=== PATIENT | male | born 1945 | race Caucasian/White ===

== ENCOUNTER 2024-07-12 22:12 | Inpatient (IN) | payer MEDICARE, OTHER, SELFPAY ==
[2024-07-12] VITALS (8 sets, daily range): BP systolic 101–129; BP diastolic 44–59; BMI 36.1; BMI 33.3
[2024-07-12 17:51] LABS: % Basophils 0.6 % (0-2); % Eosinophils 2.5 % (0-6); % Immature Granulocytes 0.9 % (0-0.5); % Lymphocytes 17.9 % (20.5-51.1); % Monocytes 10.5 % (1.7-9.3); % Neutrophils 67.6 % (42.2-75.2); Absolute Basophils 0.1 10^3/uL (0-0.2); Absolute Eosinophils 0.3 10^3/uL (0-0.7); Absolute Immature Granulocytes 0.1 10^3/uL (0-0.05); Absolute Lymphocytes 2.3 10^3/uL (1.2-3.4); Absolute Monocytes 1.4 10^3/uL (0.1-0.6); Absolute Neutrophils 8.8 10^3/uL (1.4-6.5); Hematocrit 30.2 % (39.0-52.0); Hemoglobin 9.6 g/dL (13.0-18.0); Mean Corp Hgb Conc. 31.8 g/dL (33.0-37.0); Mean Corpuscular Hgb 29.3 pg (27.0-31.0); Mean Corpuscular Volume 92.1 fL (80.0-94.0); Mean Platelet Volume 9.7 fL (7.4-10.4); Nucleated Red Blood Cells % 0 % (-); Platelet Count 318 10^3/uL (130-400); Red Blood Cell Count 3.28 10^6/uL (4.70-6.10); Red Cell Dist. Width 13.9 % (11.5-14.5); Urine Albumin 1+ (Neg - Trace); Urine Bilirubin Negative (Negative); Urine Character Slightly Cloudy (Clear); Urine Color Yellow; Urine Glucose Negative (Negative); Urine Ketone Negative (Negative); Urine Leukocyte 2+ (Negative); Urine Nitrite Negative (Negative); Urine Occult Blood 2+ (Negative); Urine Urobilinogen Negative (Neg - 1+)
[2024-07-12 17:57] LABS: Urine Bacteria Many (Negative); Urine Squamous Cell 0-2 /LPF (Few); Urine White Cell >100 /HPF (0-5)
[2024-07-12 18:13] LABS: ALT (SGPT) 11 U/L (0-50); AST (SGOT) 15 U/L (17-59); Albumin 3.3 g/dl (3.5-5.0); Alkaline Phosphatase 104 U/L (38-126); Blood Urea Nitrogen 50 mg/dl (9-20); Calcium 8.5 mg/dl (8.4-10.2); Carbon Dioxide 26 mmol/L (22-30); Chloride 101 mmol/L (98-107); Glucose 272 mg/dl (70-99); Potassium 5.4 mmol/L (3.5-5.1); Sodium 137 mmol/L (135-145); Total Bilirubin 0.4 mg/dl (0.2-1.3); Total Protein 7.3 g/dl (6.3-8.2); eGFR 37.82
--- NOTE | 2024-07-12 20:32 | ED.GENMED ---
History of Present Illness
<AAMRI Bucio - Last Filed: 07/12/24 21:38>
General
Chief Complaint: Change in Mental Status
Source: family (Son)
Exam Limitations: altered mental status and dementia
Time Seen by Provider: 07/12/24 18:46
History of Present Illness
History of Present Illness:
This is a 78 y/o male with PMH of Dementia, T2DM, BPH, and metabolic encephalopathy who presents to the ED with CC of AMS. Patient's son Pasha has provided the history due to the patient being non-verbal at this time. Per son, he has been sleeping
since noon which is unlike him. His son describes him as looking 'heavily sedated.' Pt was in [facility] last Sunday (07/05) for AMS and was discharged after 5 hours. Pt presented similarity in the past with a UTI.
Review of Systems
<AMARI Bucio - Last Filed: 07/12/24 21:38>
Review of Systems
Unable to obtain full review of systems at this time due to: dementia
Other source history: family
All Other Systems: ROS reviewed and negative except as documented in HPI and ROS
Phy Exam
<AMARI Bucio - Last Filed: 07/12/24 21:38>
General Physical Exam
General Presentation: no apparent distress
General age: appears stated age
General Skin: warm and dry
General Habitus: normal and elderly
General Mental: confused
Course
<AMARI Bucio - Last Filed: 07/12/24 21:38>
Orders/Labs/Results
Orders:
Orders
07/12/24 17:32
Straight Cath As Directed
Frequency: One time now
07/12/24 17:33
Complete Blood Count/With Diff Urgent
Comprehensive Metabolic Panel Urgent
Urinalysis Reflex To Culture Urgent
Date Specimen was Collected: 07/12/24
Time Specimen was Collected: 17:32
Urine Microscopic Reflex Cult Urgent
Urine Culture Urgent
QIAN Source: U
Specimen Description:
Date Specimen was Collected: 07/12/24
Time Specimen was Collected: 17:32
07/12/24 20:40
0.9% Sodium Chloride 1000 ml [Nss] 1,000 ml IV BOLUS
07/12/24 20:50
Piperacillin/Tazo 2.25 Gram [Zosyn] 2.25 grams in 50 ml IV NOW
07/12/24 20:54
CT Head W/o Iv Contrast Urgent
Comment:
Reason For Exam: stupor
Abnormal Lab Results
07/12/24
17:33
WBC 13.0 H 10^3/uL
(4.8-10.8)
RBC 3.28 L 10^6/uL
(4.70-6.10)
Hgb 9.6 L g/dL
(13.0-18.0)
Hct 30.2 L %
(39.0-52.0)
MCHC 31.8 L g/dL
(33.0-37.0)
Abs Immat Gran (auto) 0.1 H 10^3/uL
(0-0.05)
Absolute Neuts (auto) 8.8 H 10^3/uL
(1.4-6.5)
Absolute Monos (auto) 1.4 H 10^3/uL
(0.1-0.6)
Immature Gran % 0.9 H %
(0-0.5)
Lymphocytes % 17.9 L %
(20.5-51.1)
Monocytes % 10.5 H %
(1.7-9.3)
Potassium 5.4 H mmol/L
(3.5-5.1)
BUN 50 H mg/dl
(9-20)
Creatinine 1.8 H mg/dL
(0.7-1.3)
Glucose 272 H mg/dl
(70-99)
AST 15 L U/L
(17-59)
Albumin 3.3 L g/dl
(3.5-5.0)
Ur Occult Blood Reflex 2+ A
(Negative)
Leukocyte Esterase Rfl 2+ A
(Negative)
Urine RBC 3-6 A /HPF
(0-2)
Urine WBC (Reflex) >100 A /HPF
(0-5)
Urine Bacteria (Reflex) Many A
(Negative)
Urine Albumin (Reflex) 1+ A
(Neg - Trace)
07/12/24 17:33
07/12/24 17:33
Vital Signs
Initial and Last Documented VS:
Initial Vital Signs
Temp Pulse Resp BP Pulse Ox
98.5 F 74 20 114/57 93
07/12/24 17:21 07/12/24 17:21 07/12/24 17:21 07/12/24 17:21 07/12/24 17:21
Last Documented Vital Signs
Temp Pulse Resp BP Pulse Ox
98.5 F 69 15 129/59 95
07/12/24 17:21 07/12/24 21:00 07/12/24 17:45 07/12/24 21:00 07/12/24 20:30
Quelt;Tung Dove, DO - Last Filed: 07/12/24 20:56>
Orders/Labs/Results
Orders:
Orders
07/12/24 17:32
Straight Cath As Directed
Frequency: One time now
07/12/24 17:33
Complete Blood Count/With Diff Urgent
Comprehensive Metabolic Panel Urgent
Urinalysis Reflex To Culture Urgent
Date Specimen was Collected: 07/12/24
Time Specimen was Collected: 17:32
Urine Microscopic Reflex Cult Urgent
Urine Culture Urgent
QIAN Source: U
Specimen Description:
Date Specimen was Collected: 07/12/24
Time Specimen was Collected: 17:32
07/12/24 20:40
0.9% Sodium Chloride 1000 ml [Nss] 1,000 ml IV BOLUS
07/12/24 20:50
Piperacillin/Tazo 2.25 Gram [Zosyn] 2.25 grams in 50 ml IV NOW
07/12/24 20:54
CT Head W/o Iv Contrast Urgent
Comment:
Reason For Exam: stupor
Abnormal Lab Results
07/12/24
17:33
WBC 13.0 H 10^3/uL
(4.8-10.8)
RBC 3.28 L 10^6/uL
(4.70-6.10)
Hgb 9.6 L g/dL
(13.0-18.0)
Hct 30.2 L %
(39.0-52.0)
MCHC 31.8 L g/dL
(33.0-37.0)
Abs Immat Gran (auto) 0.1 H 10^3/uL
(0-0.05)
Absolute Neuts (auto) 8.8 H 10^3/uL
(1.4-6.5)
Absolute Monos (auto) 1.4 H 10^3/uL
(0.1-0.6)
Immature Gran % 0.9 H %
(0-0.5)
Lymphocytes % 17.9 L %
(20.5-51.1)
Monocytes % 10.5 H %
(1.7-9.3)
Potassium 5.4 H mmol/L
(3.5-5.1)
BUN 50 H mg/dl
(9-20)
Creatinine 1.8 H mg/dL
(0.7-1.3)
Glucose 272 H mg/dl
(70-99)
AST 15 L U/L
(17-59)
Albumin 3.3 L g/dl
(3.5-5.0)
Ur Occult Blood Reflex 2+ A
(Negative)
Leukocyte Esterase Rfl 2+ A
(Negative)
Urine RBC 3-6 A /HPF
(0-2)
Urine WBC (Reflex) >100 A /HPF
(0-5)
Urine Bacteria (Reflex) Many A
(Negative)
Urine Albumin (Reflex) 1+ A
(Neg - Trace)
07/12/24 17:33
07/12/24 17:33
Vital Signs
Initial and Last Documented VS:
Initial Vital Signs
Temp Pulse Resp BP Pulse Ox
98.5 F 74 20 114/57 93
07/12/24 17:21 07/12/24 17:21 07/12/24 17:21 07/12/24 17:21 07/12/24 17:21
Last Documented Vital Signs
Temp Pulse Resp BP Pulse Ox
98.5 F 69 15 129/59 95
07/12/24 17:21 07/12/24 21:00 07/12/24 17:45 07/12/24 21:00 07/12/24 20:30
<AMARI Bucio - Last Filed: 07/12/24 21:38>
*Critical Care Note
Total Time (30-74mins, 75-104mins- exclusive of procedures): Not Applicable
ED Attending Note
<AMARI Bucio - Last Filed: 07/12/24 21:38>
-
Portions of this chart may have been created with voice recognition software.� Occasional wrong word or��sound alike� substitutions may have occurred due to the inherent limitations of voice recognition software.
<Tung Dove DO - Last Filed: 07/12/24 20:56>
ED Attending Note
Patient seen and examined by attending physician: Yes
I performed the substantive portion of visit, reviewed & personally made and approve the management plan that is documented in note by myself or KHUSHBU.: Yes
ED Attending Note:
Seen with student examined independently 78-year-old male from the facility presents with confusion weakness subacute onset he is on Hip-Femi chronically apparently he gets this issue when he gets a UTI labs are noted creatinine up white count up
urinalysis noted does not appear to have a Degroot will start on antibiotics admit
Discharge Plan
Departure
Patient Disposition: Admit
Date of Disposition: 07/12/24
Time of Disposition: 20:56
Admit to: Med/Surg
Presentation/result/management discussed w/ accepting MD/DO: Hospitalist
Patient with high blood pressure during this ER visit?: No
Condition: Fair
Discharge Problem:
Acute UTI (urinary tract infection)
Prescriptions:
No Action
Glucagon Emergency Kit 1 mg Kit
1 mg IM PRN PRN (Reason: blood sugar <60)
acetaminophen 325 mg Tablet
650 mg PO Q4H PRN (Reason: pain/temp)
bisacodyl 5 mg Suppository
1 mg SD PRN PRN (Reason: no BM for 5 days)
polyethylene glycol 3350 [GlycoLax] 17 gram Powder In Packet
17 g PO DAILY
donepezil 10 mg Tablet
10 mg PO HS
dextrose [Glucose Gel] 40 % Gel
10 g PO Q15M PRN (Reason: blood sugar <60)
ergocalciferol (vitamin D2) 50,000 unit Tablet
50,000 unit PO .SUNDAY HS
levothyroxine 75 mcg Tablet
75 mcg PO DAILY
calcium carbonate 600 mg calcium (1,500 mg) Tablet
600 mg PO DAILY
methenamine hippurate [Hiprex] 1 gram Tablet
1 g PO DAILY
tamsulosin [Flomax] 0.4 mg Capsule
0.4 mg PO HS
Enema 19-7 gram/118 mL Enema
118 ml SD PRN PRN (Reason: no bm >6 days)
aspirin 81 mg Tablet
81 mg PO DAILY
magnesium 200 mg Tablet
400 mg PO DAILY
insulin lispro [Admelog SoloStar U-100 Insulin] 100 unit/mL Insulin Pen
1 sliding scale dose SC DIRECTED
Rx Instructions:
201-250- 2 units
251-300-4 units
301-350- 6 units
351-400- 8 units
401-450- 10 units
<60 or >500 call MD
Anusol Suppository
1 supp SD BID
insulin glargine 100 unit/mL Cartridge
20 unit SC DAILY
pregabalin [Lyrica] 100 mg Capsule
100 mg PO .LUNCH
pregabalin [Lyrica] 150 mg Capsule
150 mg PO BID
duloxetine 60 mg Capsule, Delayed Rel Sprinkle
60 mg PO DAILY
Referrals:
Gerber Daley MD [Family Provider] -
Interventions
Interventions:
*General Assessment Last Done: 07/12/24 17:21
ED- Fall Risk Assessment Last Done: 07/12/24 17:45
ED- Pulmonary Assessment Last Done: 07/12/24 17:45
ED- Cardiac Assessment Last Done: 07/12/24 17:45
Discharge Date and Time
Print Language: BANGLADESHI
[2024-07-12] MEDS: ZOSYN 50 IV (21:09)
[2024-07-12] MEDS: NSS 1000 IV (21:10)
--- NOTE | 2024-07-12 21:12 | EDRN ---
Report received, went in patient is sleeping, hooked back up to monitor and placed call cha at bedside
--- NOTE | 2024-07-12 21:31 | HPS.HSE ---
Family Physician
-
Family Physician: Gerber Daley
Chief Complaint
-
Change of mental status
History of Present Illness
78 y/o man with a PMH of:
Dementia,
T2DM,
BPH
metabolic encephalopathy
comes to the ED with change of mental status. Patient's son Pasha has provided the history to the ED doc due to the patient being non-verbal at this time Son was not in room at the time of admit. Per son, patient has been sleeping since noon which
is unlike him. Pt was in [facility] last Sunday (07/05) for AMS and was discharged after 5 hours. Pt presented similarity in the past with a UTI. Patient was not able to give me any further answers.
Medical History
Past Medical History
Past Medical History: Reports Other
Additional Past Medical History:
Patient does not get his care in our system. He is not able to provide any history to me.
Looking at his meds, his PMH is likely:
Insulin dependent Diabetes
Dementia
Depression
hypothyroidism
BPH
Past Surgical History: Reports Other
Additional Past Surgical History:
Not know. History not available.
Social History
Unable to obtain full social history at this time due to: Dementia
Family History
Family History: Not pertinent
Allergies / Home Medications
Allergies reflects when Allergies were last updated in [facility].
Home Medications with original date entered in [facility]
Allergy/Medication List:
Allergies
Allergy/AdvReac Type Severity Reaction Status Date / Time
morphine Allergy Unknown Verified 07/12/24 17:31
nitrofurantoin Allergy Unknown Verified 07/12/24 17:31
Home Medications
acetaminophen 325 mg tablet 650 mg PO Q4H PRN pain/temp 07/12/24
aspirin 81 mg tablet 81 mg PO DAILY 07/12/24
bisacodyl 5 mg rectal suppository 1 mg AL PRN PRN no BM for 5 days 07/12/24
bismuth weui-[id number]-EsGh-resor rectal suppository 1 supp AL BID 07/12/24
calcium carbonate 600 mg PO DAILY 07/12/24
dextrose 40 % oral gel (Glucose Gel) 10 g PO Q15M PRN blood sugar <60 07/12/24
donepezil 10 mg tablet 10 mg PO HS 07/12/24
duloxetine 60 mg capsule,delayed release sprinkle 60 mg PO DAILY 07/12/24
ergocalciferol (vitamin D2) 50,000 unit tablet 50,000 unit PO .SUNDAY HS 07/12/24
glucagon 1 mg injection kit 1 mg IM PRN PRN blood sugar <60 07/12/24
insulin glargine 100 unit/mL subcutaneous cartridge 20 unit SC DAILY 07/12/24
insulin lispro 100 unit/mL subcutaneous pen ([facility] SoloStar U-100 Insulin lispro) 1 sliding scale dose SC DIRECTED 07/12/24
levothyroxine 75 mcg tablet 75 mcg PO DAILY 07/12/24
magnesium 200 mg tablet 400 mg PO DAILY 07/12/24
methenamine hippurate 1 gram tablet 1 g PO DAILY 07/12/24
polyethylene glycol 3350 17 gram oral powder packet 17 g PO DAILY 07/12/24
pregabalin 100 mg capsule (Lyrica) 100 mg PO .LUNCH 07/12/24
pregabalin 150 mg capsule (Lyrica) 150 mg PO BID 07/12/24
sodium phosphates 19 gram-7 gram/118 mL enema (Enema) 118 ml AL PRN PRN no bm >6 days 07/12/24
tamsulosin 0.4 mg capsule (Flomax) 0.4 mg PO HS 07/12/24
Review of Systems
-
Unable to obtain full review of systems at this time due to: Dementia
Physical Exam
Vital Signs
Vital Signs
Temp Pulse Resp BP Pulse Ox
98.5 F 69 15 129/59 95
07/12/24 17:21 07/12/24 21:00 07/12/24 17:45 07/12/24 21:00 07/12/24 20:30
Physical Exam
General: Well Developed, Well Nourished and Obese
HEENT: Nose Appears Normal and Ears Appear Normal; No Moist mucous membranes
Respiratory: Clear
Cardiac: S1/S2 and Regular Rhythm
GI: Soft, Non Tender and Non Distended
Musculoskeletal: No Clubbing, No Cyanosis and No Edema
Skin: Warm and Dry
Neuro: Awake
Psych: Confused
Laboratory Results
-
07/12/24 17:33
07/12/24 17:33
Laboratory Results
Total Bilirubin 0.4 mg/dl (0.2-1.3) 07/12/24 17:33
AST 15 U/L (17-59) L 07/12/24 17:33
ALT 11 U/L (0-50) 07/12/24 17:33
Alkaline Phosphatase 104 U/L (38-126) 07/12/24 17:33
Data Reviewed
-
Lab Data: Labs Reviewed by me
Impression/Plan
-
IMPRESSION:
78 man with infection and sepsis. Low BP, high WBC, known source of infection. Significant findings:
No records available. Patient not able to give history.
WBC 13.0
H/H 9.6/30.2
K 5.4
BUN/Creat 50/1.8
UA: OB, LE, RBC, WBC, vlad
PLAN:
1. Sepsis from source.
Admit to ICU with sepsis protocol
IV abx
IV fluids
2. Acute renal failure (baseline renal function not known)
IV saline
recheck in am
3. Hyperkalemia - likely from renal failure
Check ECG
Treat if there are any ECG changes
Check mag level
4. Anemia - no signs of bleeding, likely from chronic disease
Check H/H daily
5. Diabetes, with h/o taking insulin - glucose of 272
SQ insulin
Use med range protocol
6. Metabolic encephalopathy complicating dementia
Should improve once infection is treated
Check CT scan if no improvement with infection treatment
Code: Presumed Full - discuss with family when they are available
Heparin SQ for DVTp
[2024-07-12] MEDS: MAXIPIME 2000 MG IV (22:38)
[2024-07-12] MEDS: STERILE WATER FOR INJECTION 10 ML IV (22:39)
[2024-07-12 22:41] LABS: Lactic Acid 0.6 mmol/L (0.7-2.0)
--- NOTE | 2024-07-12 22:59 | EDRN ---
Brief for patient changed and patient taken upstairs to ICU
[2024-07-13] VITALS (19 sets, daily range): BP systolic 103–139; BP diastolic 47–80; PULSE 79; O2SAT 94; BMI 33.6
[2024-07-13] MEDS: FLOMAX PO (00:13)
[2024-07-13] MEDS: ARICEPT PO (00:13)
--- NOTE | 2024-07-13 01:08 | W.PN.SEPSIS ---
Sepsis
Vital Signs
Temp Pulse Resp BP Pulse Ox
97.7 F 62 18 107/49 97
07/12/24 23:09 07/13/24 00:00 07/13/24 00:00 07/13/24 00:00 07/13/24 00:00
Physical Exam
Physical Exam:
A focused exam was performed after fluid resuscitation.
Capillary Refill
Bilateral Upper Extremity:
Shravan Time: Less than 3 sec
Bilateral Lower Extremity:
Shravan Time: Less than 3 sec
Pulse Evaluation
Bilateral Radial:
Pulse Evaluation: Present
Bilateral Dorsalis Pedis:
Pulse Evaluation: Present
[2024-07-13 01:21] LABS: Glucose - Point of Care 266 mg/dl (70-99)
[2024-07-13] MEDS: NSS 1000 IV ×3 (02:15→21:17)
--- NOTE | 2024-07-13 02:58 | PTCARENOTE ---
On arrival pt alert, AAOx self only, denies pain at this time, SR on the monitor, 2L NC, pt incontinent, NSS infusing per orders, bed alarm on and call cha in reach.
[2024-07-13 04:24] LABS: Hematocrit 28.3 % (39.0-52.0); Hemoglobin 8.8 g/dL (13.0-18.0); Mean Corp Hgb Conc. 31.1 g/dL (33.0-37.0); Mean Corpuscular Hgb 28.8 pg (27.0-31.0); Mean Corpuscular Volume 92.5 fL (80.0-94.0); Mean Platelet Volume 9.7 fL (7.4-10.4); Platelet Count 316 10^3/uL (130-400); Red Blood Cell Count 3.06 10^6/uL (4.70-6.10); Red Cell Dist. Width 13.9 % (11.5-14.5); White Blood Cell Count 11.3 10^3/uL (4.8-10.8)
[2024-07-13 04:33] LABS: ALT (SGPT) < 10 U/L (0-50); AST (SGOT) 14 U/L (17-59); Albumin 3.1 g/dl (3.5-5.0); Alkaline Phosphatase 83 U/L (38-126); Blood Urea Nitrogen 47 mg/dl (9-20); Calcium 8.2 mg/dl (8.4-10.2); Carbon Dioxide 26 mmol/L (22-30); Chloride 106 mmol/L (98-107); Estimated Creatinine Clearance 48 ml/min; Glucose 220 mg/dl (70-99); Magnesium 1.9 mg/dl (1.6-2.3); Phosphorus 4.3 mg/dl (2.5-4.5); Potassium 5.2 mmol/L (3.5-5.1); Sodium 140 mmol/L (135-145); Total Bilirubin 0.5 mg/dl (0.2-1.3); Total Protein 6.9 g/dl (6.3-8.2); eGFR 43.56
[2024-07-13] MEDS: SYNTHROID 75 MCG PO (05:25)
[2024-07-13 05:50] LABS: INR 1.13; PT 14.8 Sec (11.4-14.6)
--- NOTE | 2024-07-13 07:24 | CON.INTV ---
Consultation
Consultation Request
Date/Time Consultation Requested: 07/13/24
Date/Time Consultation Performed: 07/13/24
Performing Provider: Wendy
Reason for Consultation: ICU
Medical History
-
History of Present Illness:
Patient is a 78-year-old male with previous history of dementia, diabetes, BPH presenting to ER with change in mental status. History was provided by family as patient is currently nonverbal. Patient has been overly lethargic with prolonged
sleep time. He was admitted to [facility] last Sunday for change in mental status and was discharged after 5 hours. He presented similarly in the past with UTI. UA demonstrating 2+ leuk asked, many bacteria. He is placed on antibiotics.
He has been hemodynamically stable in the ER, not on pressors. He is admitted to ICU for sepsis without shock.
Past Medical History
Past Medical History: Other (see list below)
Social History
Tobacco: Non-smoker
Alcohol: None
Drug: None
Family History
Family History: Reviewed & Not Pertinent
Allergies / Home Medications
Allergies
Allergy/AdvReac Type Severity Reaction Status Date / Time
morphine Allergy Unknown Verified 07/12/24 17:31
nitrofurantoin Allergy Unknown Verified 07/12/24 17:31
Home Medications
�Medication �Instructions �Recorded �Confirmed �Last Taken �Type
acetaminophen 325 mg tablet 650 mg PO Q4H PRN pain/temp 07/12/24 07/12/24 Unknown History
aspirin 81 mg tablet 81 mg PO DAILY 07/12/24 07/12/24 Unknown History
bisacodyl 5 mg rectal suppository 1 mg PA PRN PRN no BM for 5 days 07/12/24 07/12/24 Unknown History
bismuth cbrg-mbczpu-OoNz-resor 1 supp PA BID 07/12/24 07/12/24 Unknown History
rectal suppository
calcium carbonate 600 mg PO DAILY 07/12/24 07/12/24 Unknown History
dextrose 40 % oral gel (Glucose 10 g PO Q15M PRN blood sugar <60 07/12/24 07/12/24 Unknown History
Gel)
donepezil 10 mg tablet 10 mg PO HS 07/12/24 07/12/24 Unknown History
duloxetine 60 mg capsule,delayed 60 mg PO DAILY 07/12/24 07/12/24 Unknown History
release sprinkle
ergocalciferol (vitamin D2) 50,000 50,000 unit PO .SUNDAY HS 07/12/24 07/12/24 Unknown History
unit tablet
glucagon 1 mg injection kit 1 mg IM PRN PRN blood sugar <60 07/12/24 07/12/24 Unknown History
insulin glargine 100 unit/mL 20 unit SC DAILY 07/12/24 07/12/24 Unknown History
subcutaneous cartridge
insulin lispro 100 unit/mL 1 sliding scale dose SC DIRECTED 07/12/24 07/12/24 Unknown History
subcutaneous pen (Admelog SoloStar
U-100 Insulin lispro)
levothyroxine 75 mcg tablet 75 mcg PO DAILY 07/12/24 07/12/24 Unknown History
magnesium 200 mg tablet 400 mg PO DAILY 07/12/24 07/12/24 Unknown History
methenamine hippurate 1 gram tablet 1 g PO DAILY 07/12/24 07/12/24 Unknown History
polyethylene glycol 3350 17 gram 17 g PO DAILY 07/12/24 07/12/24 Unknown History
oral powder packet
pregabalin 100 mg capsule (Lyrica) 100 mg PO .LUNCH 07/12/24 07/12/24 Unknown History
pregabalin 150 mg capsule (Lyrica) 150 mg PO BID 07/12/24 07/12/24 Unknown History
sodium phosphates 19 gram-7 118 ml PA PRN PRN no bm >6 days 07/12/24 07/12/24 Unknown History
gram/118 mL enema (Enema)
tamsulosin 0.4 mg capsule (Flomax) 0.4 mg PO HS 07/12/24 07/12/24 Unknown History
Review of Systems
-
Unable to Obtain full review of systems at this time due to: Dementia
Vitals / Labs / Diagnostic Testing
Vital Signs
Temp Pulse Resp BP Pulse Ox
97.9 F 67 15 108/62 99
07/13/24 03:30 07/13/24 05:30 07/13/24 05:30 07/13/24 05:00 07/13/24 05:30
Lab Data
07/13/24 04:05
07/13/24 04:05
Laboratory Results
07/13/24 07/13/24
04:05 05:11
PT Cancelled 14.8 H
INR Cancelled 1.13
APTT Cancelled 40.0 H
Diagnostic Testing:
Physical Exam
-
HEENT: Normocephalic, Anicteric and Moist Mucous Membranes
Cardiovascular: S1/S2 and Regular Rhythm
Respiratory: Clear and Non-Labored Respirations
GI: Soft, Non Distended and Non Tender
Neurology: Awake, Alert and No Motor Deficits
Skin: Warm, Dry and Good Color
General: Comfortable and Other (NAD)
Assessment
-
Patient is a 78-year-old male with previous history of dementia, diabetes, BPH presenting to ER with change in mental status. History was provided by family as patient is currently nonverbal. Patient has been overly lethargic with prolonged
sleep time. He was admitted to [facility] last Sunday for change in mental status and was discharged after 5 hours. He presented similarly in the past with UTI. UA demonstrating 2+ leuk asked, many bacteria. He is placed on antibiotics.
He has been hemodynamically stable in the ER, not on pressors. He is admitted to ICU for sepsis without shock.
UTI
Change in MS
Leukocytosis, mild
Hyperkalemia
Possible MIKE, unknown baseline
Hyperglycemia
Iron deficiency anemia
Conditions present WAIST PRESSER
Insulin dependent diabetes
Dementia
Depression
Hypothyroidism
BPH
History of CVA/chronic --incidentally noted on HCT
Plan
No current signs of metabolic encephalopathy or MS changes/following commands
Baseline MS reported as dementia
CT head showing incidental old CVAs
Denies pain at this time.
Pain/sedation: PRN
RASS goals: 0
Hemodynamically stable, not requiring pressors.
Cardiac history reviewed--none
Monitor on telemetry
Oxygen needs: stable on RA
Prior history of lung disease: none
Supplemental O2 as indicated to maintain sats > 89%
Resume diet as tolerated
Online Facilitator recommendations
Aspiration precautions, HOB > 30 degrees
Speech therapy eval can be considered if at elevated risk
GI prophylaxis if indicated
MIKE present, but unknown BL
No known history of renal disease
Void trials
Follow urine output, critical I/Os
Replete electrolytes as needed
Fever and increased WBC on presentation, suspect underlying UTI
Started on empiric antibiotics
Cultures sent/pending
Follow fever trend, WBC count
CBC stable, no signs of bleeding or coagulopathy.
Likely DELVIN present, serum iron low--repletion
DVT prophylaxis as assessed based on risk, including mechanical SCDs
Can transfuse if indicated for Hb <7, plt < 10
H/o hypothyroidism, can continue on home synthroid dose
H/o diabetes, can continue on home meds, SS for coverage
HbA1c pending
[facility] without shock. We will sign off upon transfer.
Diagnostic Data
Chest X-Ray:
CT Scan: HCT 07/12/24- No evidence of acute intracranial abnormality. 3 mm focus of decreased density within the left kameron, appearance compatible with a small old infarct. Wedge-shaped area of volume loss and decreased density at the left
parieto-occipital junction, compatible with old infarction. Paranasal sinus disease. Suggestion of a posterior meniscal air-fluid level within the left maxillary sinus, and please correlate with any symptoms that would suggest acute left maxillary
sinusitis.
Echo:
PFT's:
Reports and relevant images were personally reviewed.
-----
Critical care time 50 mins -- this includes review of history, physical exam, medications, hemodynamic/ventilator parameters, laboratory data, imaging and discussion with house staff, pharmacy, respiratory therapy, stock room manager, and nursing.
--- NOTE | 2024-07-13 07:39 | W.PN.HOSP.TC ---
Today's Communication/Plan
-
Transfer out of ICU
Continue antibiotics
Await cultures
Lokelma
Anemia labs
PT/OT
Assessment / Plan
Assessment / Plan
Gen-awake, alert, confused, NAD
HEENT-NC, AT, anicteric, clear oral mm
Neck-supple
CV-reg, no M, +S1/S2
Lungs-clear B/L
Abd-soft, NT, ND
Ext-no edema
Musculoskeletal-no cyanosis, clubbing
Skin-warm and dry
Neuro-grossly non-focal
Psych-calm, cooperative
Acute TME -likely due to UTI in the setting of underlying dementia.
CT head without evidence of acute disease. 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
UTI -presentation with acute TME, leukocytosis. Afebrile, not tachycardic. Technically not septic based on criteria. Cultures pending, continue antibiotics.
Transfer out of ICU today.
Hyperkalemia -in the setting of suspected CKD. Give a dose of Lokelma.
DM2 with hyperglycemia -glucose 220 this morning. Check hemoglobin A1c. Need to clarify home doses of insulin. For now use low dose Lantus, aspart, corrective scale.
Normocytic anemia -unknown etiology or chronicity. Hemoglobin 8.8 today. Monitor for now. Check anemia labs.
Hypothyroidism -levothyroxine.
Dementia, unknown type
Obesity due to excess calories
Presumed full code
Anticipated Discharge: 24 - 48 hours
Subjective/Interval History
-
Date of Service: July 13, 2024
Patient seen and examined. Confused. No complaints.
Objective Data
-
Labs:
Laboratory Results
07/13/24 07/13/24
04:05 05:11
WBC 11.3 H
Hgb 8.8 L
Hct 28.3 L
Plt Count 316
PT Cancelled 14.8 H
INR Cancelled 1.13
APTT Cancelled 40.0 H
Sodium 140
Potassium 5.2 H
Chloride 106
Carbon Dioxide 26
BUN 47 H
Creatinine 1.6 H
Glucose 220 H
Calcium 8.2 L
Total Bilirubin 0.5
AST 14 L
ALT < 10
Alkaline Phosphatase 83
Vital Signs:
Vital Signs
Temp Pulse Resp BP Pulse Ox
98.6 F 67 15 108/62 99
07/13/24 07:00 07/13/24 05:30 07/13/24 05:30 07/13/24 05:00 07/13/24 05:30
I&O
07/12/24 07/13/24 07/14/24
06:59 06:59 06:59
Intake Total 500 / 500
Output Total 500 / 500
Balance 0 / 0
Review of Systems
-
Unable to obtain full review of systems at this time due to: Dementia and Acuity
[2024-07-13 08:08] LABS: Glucose - Point of Care 183 mg/dl (70-99)
--- NOTE | 2024-07-13 08:15 | PTCARENOTE ---
Assumed care of pt at 0715 following shift report. Pt awake and resting quietly in bed. Ox person only. Pleasantly confused conversation. Follows commands appropriately. Physical assessment completed as documented. Hygiene and comfort care provided.
Call cha w/in pt reach. Safe environment maintained.
[2024-07-13] MEDS: LOKELMA 10 GRAM PO (08:20)
[2024-07-13 08:23] LABS: Iron 34 ug/dl (49-181)
[2024-07-13 08:28] LABS: Reticulocyte Count 1.1 % (0.4-2.8)
[2024-07-13] MEDS: LYRICA 150 MG PO ×2 (08:28→21:18)
[2024-07-13] MEDS: OSCAL CAL 500 500 MG PO (08:28)
[2024-07-13] MEDS: MIRALAX 17 GRAMS PO (08:28)
[2024-07-13] MEDS: LOW STRENGTH ASPIRIN 81 MG PO (08:28)
[2024-07-13] MEDS: CYMBALTA DELAYED RELEASE 60 MG PO (08:28)
[2024-07-13] MEDS: HEPARIN 5000 UNITS SC ×2 (08:28→21:18)
[2024-07-13 08:31] LABS: Percent Saturation 17 % (20-50); Total Iron Binding Capacity 189 ug/dl (261-462)
[2024-07-13] MEDS: LANTUS 0.12 UNITS SC (08:34)
[2024-07-13 09:07] LABS: TSH 3.14 uIU/ml (0.47-4.68)
[2024-07-13] MEDS: NOVOLOG FLEXPEN 3 UNITS SC ×3 (09:18→18:11)
[2024-07-13] MEDS: NOVOLOG FLEXPEN-LOW RESISTANCE 1 UNITS SC ×3 (09:18→18:12)
--- NOTE | 2024-07-13 09:34 | PTCARENOTE ---
Phone call received from pt's daughter 'Yvonne'- updated on pt's present condition and plan of care including orders to transfer to M/S.
[2024-07-13 09:43] LABS: Folate 6.8 ng/ml (2.76-20); Vitamin B12 244 pg/ml (239-931)
[2024-07-13 11:48] LABS: Glucose - Point of Care 179 mg/dl (70-99)
[2024-07-13] MEDS: VITAMIN B-12 1000 MCG PO (13:03)
[2024-07-13] MEDS: STERILE WATER FOR INJECTION 10 ML IV (17:19)
[2024-07-13] MEDS: ROCEPHIN 1000 MG IV (17:19)
[2024-07-13 17:40] LABS: Glucose - Point of Care 181 mg/dl (70-99)
--- NOTE | 2024-07-13 20:30 | PTCARENOTE ---
AAOx self only, denies pain at this time, SR on the monitor, 2L NC, pt incontinent, NSS infusing per orders, bed alarm on and call cha in reach.
[2024-07-13] MEDS: ARICEPT 10 MG PO (21:18)
[2024-07-13] MEDS: FLOMAX 0.4 MG PO (21:18)
[2024-07-14] VITALS (8 sets, daily range): BP systolic 101–160; BP diastolic 40–102; BMI 34.0
[2024-07-14] MEDS: NSS 1000 IV (04:09)
[2024-07-14 04:19] LABS: % Basophils 0.7 % (0-2); % Immature Granulocytes 0.7 % (0-0.5); % Lymphocytes 28.8 % (20.5-51.1); % Monocytes 10.6 % (1.7-9.3); % Neutrophils 56.2 % (42.2-75.2); Absolute Basophils 0.1 10^3/uL (0-0.2); Absolute Eosinophils 0.3 10^3/uL (0-0.7); Absolute Immature Granulocytes 0.1 10^3/uL (0-0.05); Absolute Lymphocytes 2.7 10^3/uL (1.2-3.4); Absolute Neutrophils 5.3 10^3/uL (1.4-6.5); Hematocrit 24.2 % (39.0-52.0); Hemoglobin 7.8 g/dL (13.0-18.0); Mean Corp Hgb Conc. 32.2 g/dL (33.0-37.0); Mean Platelet Volume 9.8 fL (7.4-10.4); Nucleated Red Blood Cells % 0 % (-); Platelet Count 283 10^3/uL (130-400); Red Blood Cell Count 2.69 10^6/uL (4.70-6.10); Red Cell Dist. Width 13.9 % (11.5-14.5); White Blood Cell Count 9.4 10^3/uL (4.8-10.8)
[2024-07-14 04:51] LABS: ALT (SGPT) < 10 U/L (0-50); AST (SGOT) 14 U/L (17-59); Albumin 2.9 g/dl (3.5-5.0); Alkaline Phosphatase 78 U/L (38-126); Blood Urea Nitrogen 41 mg/dl (9-20); Carbon Dioxide 24 mmol/L (22-30); Chloride 107 mmol/L (98-107); Estimated Creatinine Clearance 55 ml/min; Glucose 172 mg/dl (70-99); Potassium 4.8 mmol/L (3.5-5.1); Sodium 139 mmol/L (135-145); Total Bilirubin 0.3 mg/dl (0.2-1.3); Total Protein 6.5 g/dl (6.3-8.2); eGFR 51.13
[2024-07-14] MEDS: SYNTHROID 75 MCG PO (06:19)
[2024-07-14] MEDS: NOVOLOG FLEXPEN-LOW RESISTANCE 1 UNITS SC ×3 (08:38→17:05)
[2024-07-14] MEDS: NOVOLOG FLEXPEN 3 UNITS SC ×3 (08:39→17:01)
[2024-07-14] MEDS: LANTUS 0.12 UNITS SC (08:39)
[2024-07-14] MEDS: OSCAL CAL 500 500 MG PO (08:40)
[2024-07-14] MEDS: LOW STRENGTH ASPIRIN 81 MG PO (08:40)
[2024-07-14] MEDS: HEPARIN 5000 UNITS SC ×2 (08:40→19:01)
[2024-07-14] MEDS: LYRICA 150 MG PO ×2 (08:40→19:04)
[2024-07-14] MEDS: CYMBALTA DELAYED RELEASE 60 MG PO (08:40)
[2024-07-14] MEDS: MIRALAX PO (08:41)
[2024-07-14] MEDS: VITAMIN B-12 1000 MCG PO (08:41)
[2024-07-14 08:45] LABS: Glucose - Point of Care 156 mg/dl (70-99)
--- NOTE | 2024-07-14 09:20 | PTCARENOTE ---
AAOx self only, denies pain at this time but says he Feels Terrible. Repeating 'I love you' and 'I miss you' to staff. SB with vital signs, 2L NC with SpO2 99%, pt incontinent, #30 condom cath applied. Small BM noted. NSS infusing per orders, bed
alarm on and call cha in reach.
--- NOTE | 2024-07-14 11:03 | PTCARENOTE ---
Report given to RN on M/S. Pt moved to new bed and escorted to [id number].
--- NOTE | 2024-07-14 11:18 | TRANSFER ---
Received patient from ICU via bed. Pt AAOX1. Forgetful; bed alarm on. Pox: 98% 2L NC. Call cha within reach. Plan of care ongoing.
[2024-07-14 12:07] LABS: Glucose - Point of Care 157 mg/dl (70-99)
[2024-07-14 12:22] LABS: Hematocrit 25.3 % (39.0-52.0); Hemoglobin 8.1 g/dL (13.0-18.0)
--- NOTE | 2024-07-14 12:51 | CM ---
CM following re: discharge planning.
Reviewed pt's chart, met with pt.
Pt is a 78 year old male, admitted with primary dx Sepsis.
Pt is not a great historian, information obtained from [facility] admissions department. Per [facility] liaison, pt is a LTC resident, on 15 day Medicaid bed hold, requires total care, have supportive family and pt will be accepted
back when medically stable.
D/C plan: return back to [facility] when medically stable.
CM will follwo to assist the pt with discharge back to [facility] for a LTC.
[2024-07-14] MEDS: STERILE WATER FOR INJECTION 10 ML IV (14:08)
[2024-07-14] MEDS: ROCEPHIN 1000 MG IV (14:08)
--- NOTE | 2024-07-14 15:08 | W.PN.HOSP.TC ---
Today's Communication/Plan
-
f/u cultures
cont abx
insulin regimen adjustment
Assessment / Plan
Assessment / Plan
Gen-awake, alert, confused, NAD
HEENT-NC, AT, anicteric, clear oral mm
Neck-supple
CV-reg, no M, +S1/S2
Lungs-clear B/L
Abd-soft, NT, ND
Ext-no edema
Musculoskeletal-no cyanosis, clubbing
Skin-warm and dry
Neuro-grossly non-focal
Psych-calm, cooperative
Acute TME -likely due to UTI in the setting of underlying dementia.
CT head without evidence of acute disease. 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
Complicated UTI -presentation with acute TME, leukocytosis. Afebrile, not tachycardic. Technically not septic based on criteria. Cultures pending, continue antibiotics.
Transfer out of ICU today.
Hyperkalemia -in the setting of suspected MIKE on CKD. Give a dose of Lokelma.
MIKE v MIKE on CKD - improving with resuscitation; ctm
DM2 with hyperglycemia -glucose 220 this morning. Check hemoglobin A1c: 9. Need to clarify home doses of insulin. For now use low dose Lantus, aspart, corrective scale.
Normocytic anemia; Iron Deficiency Anemia; -unknown etiology or chronicity. Hemoglobin 8.8 today. Monitor for now. F/u outpt for egd, colonoscopy as required
Hypothyroidism -levothyroxine.
Dementia, unknown type
Obesity due to excess calories
Presumed full code
Anticipated Discharge: 24 - 48 hours
Subjective/Interval History
-
Date of Service: July 14, 2024
No acute events
Objective Data
-
Labs:
Laboratory Results
07/14/24 07/14/24
04:05 12:06
WBC 9.4
Hgb 7.8 L 8.1 L
Hct 24.2 L 25.3 L
Plt Count 283
Sodium 139
Potassium 4.8
Chloride 107
Carbon Dioxide 24
BUN 41 H
Creatinine 1.4 H
Glucose 172 H
Calcium 8.0 L
Total Bilirubin 0.3
AST 14 L
ALT < 10
Alkaline Phosphatase 78
Vital Signs:
Vital Signs
Temp Pulse Resp BP Pulse Ox
98 F 56 20 141/52 98
07/14/24 11:21 07/14/24 11:21 07/14/24 11:21 07/14/24 11:21 07/14/24 11:35
I&O
07/13/24 07/14/24 07/15/24
06:59 06:59 06:59
Intake Total 500 / 625 3780 / 3905 500 / 500
Output Total 500 / 500 0 / 0
Balance 0 / 125 3780 / 3905 500 / 500
Review of Systems
-
History Source: Patient
All other systems: Not reviewed unless documented
Data Reviewed
-
CT Scan: Report Reviewed by me
Labs: Labs Reviewed by me
[2024-07-14 16:50] LABS: Glucose - Point of Care 151 mg/dl (70-99)
[2024-07-14] MEDS: FLOMAX 0.4 MG PO (21:39)
[2024-07-14] MEDS: ARICEPT 10 MG PO (21:40)
[2024-07-14 21:47] LABS: Glucose - Point of Care 145 mg/dl (70-99)
[2024-07-15] MEDS: TYLENOL 650 MG PO (00:23)
[2024-07-15] MEDS: SYNTHROID 75 MCG PO (05:17)
[2024-07-15 07:00] VITALS: BP 143/57
[2024-07-15 07:01] LABS: Glucose - Point of Care 145 mg/dl (70-99)
[2024-07-15] MEDS: LYRICA 150 MG PO ×2 (07:26→21:35)
[2024-07-15] MEDS: CYMBALTA DELAYED RELEASE 60 MG PO (07:28)
[2024-07-15] MEDS: OSCAL CAL 500 500 MG PO (07:28)
[2024-07-15] MEDS: LOW STRENGTH ASPIRIN 81 MG PO (07:28)
[2024-07-15] MEDS: MIRALAX 17 GRAMS PO (07:29)
[2024-07-15] MEDS: HEPARIN 5000 UNITS SC ×2 (07:29→21:36)
[2024-07-15] MEDS: VITAMIN B-12 1000 MCG PO (07:29)
[2024-07-15] MEDS: NOVOLOG FLEXPEN 3 UNITS SC ×3 (07:34→16:14)
[2024-07-15] MEDS: NOVOLOG FLEXPEN-LOW RESISTANCE SC (07:34)
[2024-07-15] MEDS: LANTUS 0.12 UNITS SC (07:34)
[2024-07-15 07:51] LABS: Hemoglobin 8.8 g/dL (13.0-18.0); Mean Corp Hgb Conc. 32.6 g/dL (33.0-37.0); Mean Corpuscular Hgb 29.3 pg (27.0-31.0); Mean Platelet Volume 9.8 fL (7.4-10.4); Platelet Count 306 10^3/uL (130-400); Red Cell Dist. Width 13.9 % (11.5-14.5); White Blood Cell Count 6.9 10^3/uL (4.8-10.8)
[2024-07-15 08:28] LABS: ALT (SGPT) < 10 U/L (0-50); AST (SGOT) 13 U/L (17-59); Albumin 3.2 g/dl (3.5-5.0); Alkaline Phosphatase 82 U/L (38-126); Blood Urea Nitrogen 31 mg/dl (9-20); Calcium 8.9 mg/dl (8.4-10.2); Carbon Dioxide 26 mmol/L (22-30); Chloride 106 mmol/L (98-107); Estimated Creatinine Clearance 60 ml/min; Glucose 146 mg/dl (70-99); Potassium 4.9 mmol/L (3.5-5.1); Sodium 142 mmol/L (135-145); Total Bilirubin 0.3 mg/dl (0.2-1.3); eGFR 55.88
[2024-07-15] MEDS: ZOSYN 100 IV ×3 (10:24→21:41)
[2024-07-15 12:15] LABS: Glucose - Point of Care 166 mg/dl (70-99)
[2024-07-15] MEDS: LYRICA 100 MG PO (12:25)
[2024-07-15] MEDS: NOVOLOG FLEXPEN-LOW RESISTANCE 1 UNITS SC (12:34)
--- NOTE | 2024-07-15 14:11 | W.PN.HOSP.TC ---
Today's Communication/Plan
-
ID consulted
Zosyn
Follow-up cultures
Assessment / Plan
Assessment / Plan
Gen-awake, alert, confused, NAD
HEENT-NC, AT, anicteric, clear oral mm
Neck-supple
CV-reg, no M, +S1/S2
Lungs-clear B/L
Abd-soft, NT, ND
Ext-no edema
Musculoskeletal-no cyanosis, clubbing
Skin-warm and dry
Neuro-grossly non-focal
Psych-calm, cooperative
Acute TME -likely due to UTI in the setting of underlying dementia.
CT head without evidence of acute disease. 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
Complicated UTI -presentation with acute TME, leukocytosis. Cultures growing Pseudomonas aeruginosa and gram-negative bacilli; switch to Zosyn and monitor
Hyperkalemia -in the setting of suspected MIKE on CKD. Give a dose of Lokelma.
MIKE v MIKE on CKD - improving with resuscitation; ctm
DM2 with hyperglycemia -glucose 220 this morning. Check hemoglobin A1c: 9. Need to clarify home doses of insulin. For now use low dose Lantus, aspart, corrective scale.
Normocytic anemia; Iron Deficiency Anemia; -unknown etiology or chronicity. Hemoglobin 8.8 today. Monitor for now. F/u outpt for egd, colonoscopy as required
Hypothyroidism -levothyroxine.
Dementia, unknown type
Obesity due to excess calories
Presumed full code
Anticipated Discharge: Within 24 hours
Subjective/Interval History
-
Date of Service: July 15, 2024
Mental status stable, no acute events overnight
Objective Data
-
Labs:
Laboratory Results
07/15/24
06:47
WBC 6.9
Hgb 8.8 L
Hct 27.0 L
Plt Count 306
Sodium 142
Potassium 4.9
Chloride 106
Carbon Dioxide 26
BUN 31 H
Creatinine 1.3
Glucose 146 H
Calcium 8.9
Total Bilirubin 0.3
AST 13 L
ALT < 10
Alkaline Phosphatase 82
Vital Signs:
Vital Signs
Temp Pulse Resp BP Pulse Ox
97.9 F 54 18 143/57 96
07/15/24 07:00 07/15/24 07:00 07/15/24 07:00 07/15/24 07:00 07/15/24 10:02
I&O
07/14/24 07/15/24 07/16/24
06:59 06:59 06:59
Intake Total 3780 / 3905 1460 / 1460 220 / 220
Output Total 0 / 0
Balance 3780 / 3905 1460 / 1460 220 / 220
Review of Systems
-
History Source: Patient
All other systems: Not reviewed unless documented
Data Reviewed
-
CT Scan: Report Reviewed by me
Labs: Labs Reviewed by me
[2024-07-15 15:07] VITALS: BP 129/57
[2024-07-15 16:08] LABS: Glucose - Point of Care 246 mg/dl (70-99)
[2024-07-15] MEDS: NOVOLOG FLEXPEN-LOW RESISTANCE 2 UNITS SC (16:13)
--- NOTE | 2024-07-15 16:25 | CON.ID ---
Consultation
-
Date/Time Consultation Requested: 07/15/2024 1140
Date/Time Consultation Performed: 07/15/2024 1605
Requesting Provider: Dr. Lucero
Performing Provider: Dr. Ha
Reason for Consultation: Encephalopathy; complicated urinary tract infection
Chief Complaint / Past History
History of Present Illness
Jaime Hung is a 78-year-old male with significant past medical history of DM, dementia and BPH being evaluated at the request of Dr. Lucero in regards to encephalopathy and a complicated urinary tract infection. History is obtained from
chart review alone as the patient could not provide any meaningful history for me.
The patient presented to [facility] on 07/12/2024 secondary to decreased mentation. The patient's son reports that during the day the patient became somewhat nonverbal and had been sleeping much more than usual. The patient recently was in
[facility] on 07/05 for change in mental status, but was discharged after only 5 hours. Patient's son noted that current symptomatology was similar to times past when he had a urinary tract infection.
The patient currently reports some discomfort in his sacral area, but could not identify no other areas of discomfort. He is not sure whether he had any fevers. He is not oriented.
Past History
Additional Past Medical History:
Dementia
DM
BPH
Hypothyroidism
Depression
Allergy History:
morphine Allergy (Verified 07/12/24 17:31)
Unknown
nitrofurantoin Allergy (Verified 07/12/24 17:31)
Unknown
Medications Reviewed: Yes
Current Antibiotics:
Zosyn 4.5 g IV every 6 hours
Social History
Tobacco: Non-Smoker
Alcohol: None
Drug: None
Living: With Family
Employment: Not Employed
Family History
Family History: Unable to Obtain
Review of Systems
Vital Signs
Temp Pulse Resp BP Pulse Ox
98 F 60 20 129/57 96
07/15/24 15:07 07/15/24 15:07 07/15/24 15:07 07/15/24 15:07 07/15/24 15:07
Physical Exam
Physical Exam
Constitutional: No Acute Distress, Comfortable, Chronically Ill, Non-toxic and Obese
Head: Normocephalic
Eyes: Pupils Equal, Pupils Round, No Conjunctival Hemorrhage and Sclera Anicteric
Oral: No Thrush and No Ulcers
Cardiovascular: Regular Rate and S1/S2; Negative S3/S4
Pulmonary: Clear; Negative Wheezes, Rales or Rhonchi
Gastrointestinal: Soft, Non Tender, Non Distended, Normal Bowel Sounds, No Rebound and No Guarding
Genito-Urinary: Degroot (Condom catheter) and Clear Urine; Negative Turbid Urine
Extremities: Venous Insufficiency (Bilateral lower extremities); Negative Edema or Cyanosis
Musculoskeletal: Negative Joint Swelling or Joint Effusion
Neurological: Awake and Alert
Psychological: Calm and Confused
Lab / Diagnostic Study Results
07/15/24 06:47
07/15/24 06:47
Abs Immat Gran (auto) 0.1 10^3/uL (0-0.05) H 07/14/24 04:05
Absolute Neuts (auto) 5.3 10^3/uL (1.4-6.5) 07/14/24 04:05
Absolute Lymphs (auto) 2.7 10^3/uL (1.2-3.4) 07/14/24 04:05
Absolute Monos (auto) 1.0 10^3/uL (0.1-0.6) H 07/14/24 04:05
Absolute Basos (auto) 0.1 10^3/uL (0-0.2) 07/14/24 04:05
Immature Gran % 0.7 % (0-0.5) H 07/14/24 04:05
Neutrophils % 56.2 % (42.2-75.2) 07/14/24 04:05
Lymphocytes % 28.8 % (20.5-51.1) 07/14/24 04:05
Monocytes % 10.6 % (1.7-9.3) H 07/14/24 04:05
Eosinophils % 3.0 % (0-6) 07/14/24 04:05
Basophils % 0.7 % (0-2) 07/14/24 04:05
PT 14.8 Sec (11.4-14.6) H 07/13/24 05:11
INR 1.13 07/13/24 05:11
Lactic Acid Cancelled 07/13/24 10:00
Ur Squamous Epith Cells 0-2 /LPF (Few) 07/12/24 17:33
Microbiology Results
Micro:
07/12/24 17:33 Urine Culture - Preliminary
Urine Pseudomonas aeruginosa
Gram negative bacilli
07/12/24 22:18 Blood Culture - Preliminary
Blood/Venous No Growth in 48 hours- Final report to follow
07/12/24 22:18 Blood Culture - Preliminary
Blood/Venous No Growth in 48 hours- Final report to follow
Imaging:
07/12/2024 CT head with w/o IV contrast: No evidence of acute intracranial abnormality. There is a noted wedge-shaped area of volume loss and decreased density at the left parietal occipital junction compatible with old infarction. Please see full
dictation for additional detail.
Assessment / Plan
Complicated urinary tract infection
-Cultures currently with Pseudomonas and an additional gram-negative khang
Leukocytosis
Encephalopathy; suspect TME
MIKE; improved
Dementia
DM (uncontrolled; HbA1c = 9.0)
BPH
Hypothyroidism
Depression
Recommendations:
Patient initially was on empiric ceftriaxone, but has been transitioned to Zosyn given recovery of Pseudomonas.
Continue on empiric Zosyn while sensitivities of additional gram-negative rods are pending.
Monitor white count and temperature curve.
Ultimately, may be able to transition to oral ciprofloxacin as long as further susceptibilities allow.
Continue with supportive measures.
Further recommendations as additional data is returned.
[2024-07-15] MEDS: [UNRECOGNIZED DRUG - OTHER] 1 EACH RECTAL (21:35)
[2024-07-15] MEDS: ARICEPT 10 MG PO (21:35)
[2024-07-15] MEDS: FLOMAX 0.4 MG PO (21:35)
[2024-07-15 21:40] LABS: Glucose - Point of Care 210 mg/dl (70-99)
[2024-07-15 23:23] VITALS: BP 134/62
[2024-07-16] MEDS: ZOSYN 100 IV ×4 (03:58→22:44)
[2024-07-16] MEDS: SYNTHROID 75 MCG PO (04:05)
[2024-07-16 06:42] VITALS: BP 139/58
[2024-07-16 07:57] LABS: Hematocrit 27.9 % (39.0-52.0); Hemoglobin 9.2 g/dL (13.0-18.0); Mean Corpuscular Hgb 29.4 pg (27.0-31.0); Mean Corpuscular Volume 89.1 fL (80.0-94.0); Mean Platelet Volume 9.5 fL (7.4-10.4); Platelet Count 302 10^3/uL (130-400); Red Blood Cell Count 3.13 10^6/uL (4.70-6.10); White Blood Cell Count 7.9 10^3/uL (4.8-10.8)
[2024-07-16 08:13] LABS: Glucose - Point of Care 159 mg/dl (70-99)
[2024-07-16 08:31] LABS: ALT (SGPT) < 10 U/L (0-50); AST (SGOT) 12 U/L (17-59); Albumin 3.2 g/dl (3.5-5.0); Alkaline Phosphatase 79 U/L (38-126); Blood Urea Nitrogen 28 mg/dl (9-20); Calcium 8.7 mg/dl (8.4-10.2); Carbon Dioxide 27 mmol/L (22-30); Chloride 106 mmol/L (98-107); Estimated Creatinine Clearance 60 ml/min; Glucose 179 mg/dl (70-99); Sodium 141 mmol/L (135-145); Total Bilirubin 0.5 mg/dl (0.2-1.3); Total Protein 7.2 g/dl (6.3-8.2); eGFR 55.88
[2024-07-16] MEDS: HEPARIN 5000 UNITS SC ×2 (08:33→21:02)
[2024-07-16] MEDS: CYMBALTA DELAYED RELEASE 60 MG PO (08:33)
[2024-07-16] MEDS: VITAMIN B-12 1000 MCG PO (08:34)
[2024-07-16] MEDS: [UNRECOGNIZED DRUG - OTHER] 1 EACH RECTAL ×2 (08:34→21:02)
[2024-07-16] MEDS: MIRALAX 17 GRAMS PO (08:34)
[2024-07-16] MEDS: LOW STRENGTH ASPIRIN 81 MG PO (08:34)
[2024-07-16] MEDS: OSCAL CAL 500 500 MG PO (08:34)
[2024-07-16] MEDS: NOVOLOG FLEXPEN 3 UNITS SC ×3 (08:35→16:44)
[2024-07-16] MEDS: NOVOLOG FLEXPEN-LOW RESISTANCE 1 UNITS SC ×2 (08:35→12:35)
[2024-07-16] MEDS: DESENEX/MITRAZOL/ZEASORB 1 APPLIC TOPICAL ×2 (08:36→22:45)
[2024-07-16] MEDS: LYRICA 150 MG PO ×2 (08:39→21:02)
[2024-07-16] MEDS: LANTUS 0.12 UNITS SC (08:39)
[2024-07-16 09:05] LABS: LDL Cholesterol, Direct 54 mg/dl
[2024-07-16 09:30] VITALS: BP 141/62; PULSE 55; O2SAT 98
--- NOTE | 2024-07-16 09:43 | PTOTSP ---
The patient required dependent assistance for bed mobility, demonstrating limited ability to participate due to his cognition. Per updated case management note, the patient is a long-term care resident and requires total care at baseline. Skilled PT
services are no longer indicated given he is total care at baseline; will sign off. Anticipate discharge back to long-term care.
[2024-07-16] MEDS: FLUSH (NSS) 1 FLUSH IV (10:30)
--- NOTE | 2024-07-16 12:00 | CM ---
CM continues to follow for return to SNF at [facility]. Currently on IV abx, may be able to transition to oral ciprofloxacin.
Plan: CM will follow to coordinate return to [facility] when medically stable. Ambulance transport to be arranged for transfer.
[2024-07-16 12:15] LABS: Glucose - Point of Care 156 mg/dl (70-99)
[2024-07-16] MEDS: LYRICA 100 MG PO (12:34)
--- NOTE | 2024-07-16 13:44 | W.PN.HOSP.TC ---
Today's Communication/Plan
-
MRI brain
ID recs
Assessment / Plan
Assessment / Plan
Gen-awake, alert, confused, NAD
HEENT-NC, AT, anicteric, clear oral mm
Neck-supple
CV-reg, no M, +S1/S2
Lungs-clear B/L
Abd-soft, NT, ND
Ext-no edema
Musculoskeletal-no cyanosis, clubbing
Skin-warm and dry
Neuro-grossly non-focal
Psych-calm, cooperative
Acute TME -likely due to UTI in the setting of underlying dementia.
CT head without evidence of acute disease. 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 son saying Rt hand weakness - will order MRI although most likely 2/2 to acute infection
Complicated UTI -presentation with acute TME, leukocytosis. Cultures growing Pseudomonas aeruginosa and ESBL - EColi -await ID recs - cont zosyn
Hyperkalemia -in the setting of suspected MIKE on CKD. Give a dose of Lokelma.
MIKE v MIKE on CKD - improving with resuscitation; ctm
DM2 with hyperglycemia - hemoglobin A1c: 9. cont insulin regimen; titrate as needed
Normocytic anemia; Iron Deficiency Anemia; -unknown etiology or chronicity. Hemoglobin 8.8 today. Monitor for now. F/u outpt for egd, colonoscopy as required
Hypothyroidism -levothyroxine.
Dementia, unknown type
Obesity due to excess calories
Presumed full code
Anticipated Discharge: Within 24 hours
Subjective/Interval History
-
Date of Service: July 16, 2024
No acute vents overnight,
Complains of weakness in his right hand, CT head previously was unremarkable
Objective Data
-
Labs:
Laboratory Results
07/16/24
07:34
WBC 7.9
Hgb 9.2 L
Hct 27.9 L
Plt Count 302
Sodium 141
Potassium 5.0
Chloride 106
Carbon Dioxide 27
BUN 28 H
Creatinine 1.3
Glucose 179 H
Calcium 8.7
Total Bilirubin 0.5
AST 12 L
ALT < 10
Alkaline Phosphatase 79
Vital Signs:
Vital Signs
Temp Pulse Resp BP Pulse Ox
97.5 F 56 20 139/58 96
07/16/24 06:42 07/16/24 06:42 07/16/24 06:42 07/16/24 06:42 07/16/24 11:39
I&O
07/15/24 07/16/24 07/17/24
06:59 06:59 06:59
Intake Total 1460 / 1460 940 / 940
Output Total 0 / 0 750 / 750
Balance 1460 / 1460 190 / 190
Review of Systems
-
History Source: Patient
All other systems: Not reviewed unless documented
Data Reviewed
-
CT Scan: Report Reviewed by me
Labs: Labs Reviewed by me
[2024-07-16 15:20] VITALS: BP 94/42
--- NOTE | 2024-07-16 16:35 | W.PN.ID1 ---
Date of Service
Date of Service: July 16, 2024
Today's Communication
Continue Zosyn for today.
Assessment / Plan
Complicated urinary tract infection
-Cultures currently with Pseudomonas and an additional gram-negative khang
Leukocytosis
Encephalopathy; suspect TME
MIKE; improved
Dementia
DM (uncontrolled; HbA1c = 9.0)
BPH
Hypothyroidism
Depression
Recommendations:
Urine cultures with Pseudomonas and ESBL E. coli.
Continue with Zosyn. No unifying oral option, although if clinical improvement, ciprofloxacin/Bactrim may be an option.
Monitor white count and temperature curve.
Continue with supportive measures.
����������������������������������������������������������
Chief Complaint
-: UTI
Subjective / Review of Systems
Review of Systems: No Fever
Vital Signs / Physical Exam
Vital Signs
Vital Signs
Temp Pulse Resp BP Pulse Ox
98.1 F 60 18 94/42 99
07/16/24 15:20 07/16/24 15:20 07/16/24 15:20 07/16/24 15:20 07/16/24 15:20
Physical Exam
Constitutional: Comfortable, Chronically Ill and Non-toxic
Eyes: Sclera Anicteric
Cardiovascular: S1/S2; Negative S3/S4
Pulmonary: Non Labored
Gastrointestinal: Soft and Non Distended
Psychological: Calm
Objective Data
Lab Data
Lab Results
07/16/24 07:34
07/16/24 07:34
PT 14.8 Sec (11.4-14.6) H 07/13/24 05:11
INR 1.13 07/13/24 05:11
APTT 40.0 Sec (23.4-35.0) H 07/13/24 05:11
Estimated Creat Clear 60 ml/min 07/16/24 07:34
Lactic Acid Cancelled 07/13/24 10:00
Total Bilirubin 0.5 mg/dl (0.2-1.3) 07/16/24 07:34
AST 12 U/L (17-59) L 07/16/24 07:34
ALT < 10 U/L (0-50) 07/16/24 07:34
Alkaline Phosphatase 79 U/L (38-126) 07/16/24 07:34
Most recent labs reviewed.
Micro Results:
07/12/24 17:33 Urine Culture - Final
Urine Pseudomonas aeruginosa
Escherichia coli - ESBL
07/12/24 22:18 Blood Culture - Preliminary
Blood/Venous No Growth in 72 hours- Final report to follow
07/12/24 22:18 Blood Culture - Preliminary
Blood/Venous No Growth in 72 hours- Final report to follow
Urine Culture Final 07/16/24
CC: Greater than 100,000 CFU/ML Pseudomonas aeruginosa
CC: Greater than 100,000 CFU/ML Escherichia coli - ESBL
Organism 1 Pseudomonas aeruginosa
Organism 2 Escherichia coli - ESBL
P.AERU EC-ESBL
M.I.C. RX M.I.C. RX
--------- --- --------- ---
Amoxicillin/Potas. Clavulanate <=8/4 S
Ampicillin >16 R
Ampicillin/Sulbactam >16/8 R
Aztreonam <=4 S >16 R
Cefazolin >16 R
Cefepime 16 I >16 R
Ceftazidime 4 S >16 R
Ceftriaxone >2 R
Ertapenem <=0.5 S
Ciprofloxacin 0.5 S >2 R
Gentamicin <=2 S
Meropenem <=1 S <=1 S
Nitrofurantoin-Urine Only <=32 S
Piperacillin/Tazobactam <=8 S <=8 S
Tetracycline <=4 S
Tobramycin <=2 S <=2 S
Trimethoprim/Sulfamethoxazole <=2/38 S
Imaging:
07/12/2024 CT head with w/o IV contrast: No evidence of acute intracranial abnormality. There is a noted wedge-shaped area of volume loss and decreased density at the left parietal occipital junction compatible with old infarction. Please see full
dictation for additional detail.
[2024-07-16 16:44] LABS: Glucose - Point of Care 216 mg/dl (70-99)
[2024-07-16] MEDS: NOVOLOG FLEXPEN-LOW RESISTANCE 2 UNITS SC (16:44)
[2024-07-16 17:51] VITALS: BP 107/58
--- NOTE | 2024-07-16 18:10 | TRANSFER ---
Pt transferred to 4W from 4E on 2L NC. AAOx1, no acute complaints at this time. Bed alarm in place, plan of care ongoing.
[2024-07-16 21:05] LABS: Glucose - Point of Care 252 mg/dl (70-99)
[2024-07-16] MEDS: ARICEPT 10 MG PO (22:45)
[2024-07-16] MEDS: FLOMAX 0.4 MG PO (22:45)
[2024-07-16 23:10] VITALS: BP 133/62
[2024-07-17] MEDS: ZOSYN 100 IV ×4 (03:58→21:41)
[2024-07-17] MEDS: SYNTHROID 75 MCG PO (05:48)
[2024-07-17 08:00] VITALS: BP 135/56
[2024-07-17 08:11] LABS: Hematocrit 29.7 % (39.0-52.0); Hemoglobin 9.5 g/dL (13.0-18.0); Mean Corpuscular Volume 90.5 fL (80.0-94.0); Mean Platelet Volume 9.7 fL (7.4-10.4); Platelet Count 333 10^3/uL (130-400); Red Blood Cell Count 3.28 10^6/uL (4.70-6.10); Red Cell Dist. Width 14.1 % (11.5-14.5)
[2024-07-17 08:33] LABS: Glucose - Point of Care 159 mg/dl (70-99)
[2024-07-17] MEDS: LYRICA PO (08:45)
[2024-07-17 09:14] LABS: ALT (SGPT) < 10 U/L (0-50); AST (SGOT) 13 U/L (17-59); Albumin 3.4 g/dl (3.5-5.0); Alkaline Phosphatase 72 U/L (38-126); Blood Urea Nitrogen 26 mg/dl (9-20); Calcium 8.7 mg/dl (8.4-10.2); Carbon Dioxide 28 mmol/L (22-30); Chloride 103 mmol/L (98-107); Estimated Creatinine Clearance 52 ml/min; Glucose 177 mg/dl (70-99); Potassium 4.5 mmol/L (3.5-5.1); Sodium 143 mmol/L (135-145); Total Bilirubin 0.6 mg/dl (0.2-1.3); Total Protein 7.4 g/dl (6.3-8.2); eGFR 47.06
[2024-07-17] MEDS: NOVOLOG FLEXPEN 3 UNITS SC ×3 (09:43→18:20)
[2024-07-17] MEDS: NOVOLOG FLEXPEN-LOW RESISTANCE 1 UNITS SC ×2 (09:44→18:20)
[2024-07-17] MEDS: LANTUS 0.12 UNITS SC (09:48)
--- NOTE | 2024-07-17 11:48 | CM ---
Addendum entered by Iesha Dodson 07/17/24 11:55:
CM reviewed with Hospitalist, patient not for discharge today, will plan for discharge tomorrow, Hospitalist spoke with GEORGIANA Russell and provided update.
Original Note:
CM reviewed chart, patient LTC resident at [facility]. Per Hospitalist, patient for discharge today. CM placed call to GEORGIANA Russell ([phone]). Yvonne requesting call from Hospitalist, reports she does not agree to patient discharge and would
like to appeal, IMM verbally reviewed. Yvonne reports she will not be at hospital today, will email copy of IMM, aware will need to appeal through [employer] (email to [email or web address]). CM will continue to follow for all discharge planning needs.
Plan; LTC resident at [facility], GEORGIANA Russell appealing discharge.
[2024-07-17] MEDS: PLAVIX 75 MG PO (13:01)
[2024-07-17] MEDS: LOW STRENGTH ASPIRIN 81 MG PO (13:01)
[2024-07-17] MEDS: VITAMIN B-12 1000 MCG PO (13:02)
[2024-07-17] MEDS: LYRICA 100 MG PO (13:02)
[2024-07-17] MEDS: HEPARIN 5000 UNITS SC ×2 (13:03→21:39)
[2024-07-17 13:05] LABS: Glucose - Point of Care 242 mg/dl (70-99)
[2024-07-17] MEDS: MIRALAX 17 GRAMS PO (13:10)
[2024-07-17] MEDS: DESENEX/MITRAZOL/ZEASORB 1 APPLIC TOPICAL ×2 (13:11→21:41)
[2024-07-17] MEDS: [UNRECOGNIZED DRUG - OTHER] 1 EACH RECTAL ×2 (13:12→21:40)
[2024-07-17] MEDS: NOVOLOG FLEXPEN-LOW RESISTANCE 2 UNITS SC (13:26)
[2024-07-17] MEDS: CYMBALTA DELAYED RELEASE PO ×2 (13:52→14:02)
[2024-07-17] MEDS: OSCAL CAL 500 500 MG PO (13:52)
--- NOTE | 2024-07-17 14:20 | W.PN.HOSP.TC ---
Today's Communication/Plan
-
Start Plavix, continue aspirin. DAPT for 21 days and then defer to neurology on choice of antiplatelet regimen�suspect Plavix. Add on statin. Echo, carotid ultrasound. Neurology consulted
Assessment / Plan
Assessment / Plan
Gen-awake, alert, confused, NAD
HEENT-NC, AT, anicteric, clear oral mm
Neck-supple
CV-reg, no M, +S1/S2
Lungs-clear B/L
Abd-soft, NT, ND
Ext-no edema
Musculoskeletal-no cyanosis, clubbing
Skin-warm and dry
Neuro-grossly non-focal
Psych-calm, cooperative
Acute TME -likely due to UTI in the setting of underlying dementia along with acute/subacute CVA right temporal love
CT head without evidence of acute disease. 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
Complicated UTI -presentation with acute TME, leukocytosis. Cultures growing Pseudomonas aeruginosa and ESBL - EColi -await ID recs - cont zosyn - 10 days
Acute/Subacute CVA - Right temporal Love; Start plavix; Continue ASA. Statin; Neuro consulted; F/u ECHO/Carotid US.
Hyperkalemia -in the setting of suspected MIKE on CKD. Give a dose of Lokelma.
MIKE v CKD - improving with resuscitation; ctm
DM2 with hyperglycemia - hemoglobin A1c: 9. cont insulin regimen; titrate as needed
Normocytic anemia; Iron Deficiency Anemia; -unknown etiology or chronicity. Hemoglobin 8.8 today. Monitor for now. F/u outpt for egd, colonoscopy as required
Hypothyroidism -levothyroxine.
Dementia, unknown type
Obesity due to excess calories
full code
Total time spent on today's encounter was 50 minutes which included time spent in counseling the patient/family regarding diagnosis and treatment plan as listed above, goals of care, and symptom management. Case was discussed with nursing staff,
specialists, and care coordinators/case management. All labs and imaging personally reviewed by me. Remainder the time spent in detailed review of previous records, lab data, imaging, and other medical provider documentation.
Anticipated Discharge: Within 24 hours
Subjective/Interval History
-
Date of Service: July 17, 2024
MRI performed due to possible right hand weakness, positive for acute to subacute CVA in the right temporal lobe
Objective Data
-
Labs:
Laboratory Results
07/17/24
07:31
WBC 7.0
Hgb 9.5 L
Hct 29.7 L
Plt Count 333
Sodium 143
Potassium 4.5
Chloride 103
Carbon Dioxide 28
BUN 26 H
Creatinine 1.5 H
Glucose 177 H
Calcium 8.7
Total Bilirubin 0.6
AST 13 L
ALT < 10
Alkaline Phosphatase 72
Vital Signs:
Vital Signs
Temp Pulse Resp BP Pulse Ox
97.4 F 55 18 135/56 95
07/17/24 08:00 07/17/24 08:00 07/17/24 08:00 07/17/24 08:00 07/17/24 08:00
I&O
07/16/24 07/17/24 07/18/24
06:59 06:59 06:59
Intake Total 940 / 940 920 / 920 100 / 100
Output Total 750 / 750 700 / 700
Balance 190 / 190 220 / 220 100 / 100
Review of Systems
-
History Source: Patient
All other systems: Not reviewed unless documented
Data Reviewed
-
Diagnostic Radiology: Report Reviewed by me
CT Scan: Report Reviewed by me
MRI: Report Reviewed by me
Medical Tests (Nuc Med, Echo etc): Image personally visualized and interpreted
Labs: Labs Reviewed by me
--- NOTE | 2024-07-17 14:28 | CON.NEURO ---
Consultation
Order
Date of Consultation: 07/17/24
Requesting Provider: Rene Lucero MD
Reason for Consult: Stroke
Neurology Consultation Note.
HPI: This is a 78-year-old RH man who presented to [facility] on 07/12/2024 with increased lethargy. Neurology consultation was requested for further evaluation and management of acute infarct found on MRI.
According to patient's son Pasha Hung has had cognitive decline shortly after his knee replacement several years ago. He has been living in assisted living over the last 4 years. He was able to ambulate with a walker before transitioning
to wheelchair in the fall 2023. Patient's son is unaware about prior stroke or their etiology. He states that his father has had paranoid ideations and wandering behavior leading to incision to [facility]. There is no family
history of neurodegenerative disease.
VS: BP 94/42 on 07/16/2024 at 15:20, HR min 52, afebrile
EKG:NSR, QTc Int : 429 ms
PDMP:Pregabalin 100 mg 30 caps filled in on 06/24/2024, Pregabalin 150 Mg 60 capsules filled in on 06/18/2024.
Labs: LDL�54, creatinine�1.5, glucose�242, UA culture�Pseudomonas aeruginosa/ESBL E. coli.
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
Tele: sinus rhythm
Labs: Hemoglobin A1c�9.0, LDL�54.
PMH:dementia, paranoid schizophrenia?, hypothyroidism, DM, BPH, vitamin D deficiency, OA
PSH: Bilateral knee replacement
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
FH: Not contributory to current presentation
All: Morphine, nitrofurantoin
ROS: Limited due to encephalopathy.
General: Well developed. In no acute distress.
Cardio: Regular rate and rhythm. Extremities are without cyanosis or edema.
Neuro:
Mental Status: Alert, oriented to name, not the place, age, location, time. Knew month and date of but not the year. Follows simple requests, nonfluent. Poor attention and comprehension.
Cranial Nerves: Pupils are equally round and reactive to light. EOMs full. Visual del angel full to confrontation. Mild right ptosis. No nystagmus. Face symmetric. Impaired hearing AU. The palate elevated well. SCMs and traps 5/5. Tongue
midline. No dysarthria.
Motor: No pronator drift. Moves lower extremities within bed plane symmetrically upon request.
Reflexes: Bilateral grasp, no clonus at the ankles.
Sensory: Nonreproducible exam
Coordination: No tremors, clonic movements
Gait: deferred
Assessment and Plan:
I. Acute/subacute right MCA territory punctuate infarct. Likely etiology�embolic.
II. Vascular/infectious/neurodegenerative encephalopathy
III. Diabetes mellitus, uncontrolled
-Continue Telemetry monitoring.
-Restart antihypertensive medications during if BP>140/90 mmHg who are neurologically stable in 24 to 48 hours after stroke onset;
-TTE
-Carotid ultrasound
-ASA 81 mg QD indefinitely.
-Plavix 75 mg QD for 21 days.
-Start thiamine
-Optimize glycemic control
-PT.
-Please obtain medical records from [facility]
-DVT prophylaxis.
-Case was discussed with patient's son
I personally reviewed all radiology and labs along with past medical records pertinent to current medical problems. Total time spent in patient care is 60 minutes.
Thank you for allowing us to participate in the care of this patient. We will continue to follow. Please do not hesitate to contact us with any questions or concerns.
Subjective/Objective
Subjective Data
Date of Service: July 17, 2024
Objective Data
Vital Signs
Temp Pulse Resp BP Pulse Ox
36.3 C 55 18 135/56 95
07/17/24 08:00 07/17/24 08:00 07/17/24 08:00 07/17/24 08:00 07/17/24 08:00
Lab Results
07/17/24 07:31
07/17/24 07:31
PT 14.8 Sec (11.4-14.6) H 07/13/24 05:11
INR 1.13 07/13/24 05:11
APTT 40.0 Sec (23.4-35.0) H 07/13/24 05:11
Sodium 143 mmol/L (135-145) 07/17/24 07:31
Potassium 4.5 mmol/L (3.5-5.1) 07/17/24 07:31
BUN 26 mg/dl (9-20) H 07/17/24 07:31
Glucose 177 mg/dl (70-99) H 07/17/24 07:31
Calcium 8.7 mg/dl (8.4-10.2) 07/17/24 07:31
Phosphorus 4.3 mg/dl (2.5-4.5) 07/13/24 04:05
LDL Cholesterol Direct Cancelled 07/17/24 12:09
Vitamin B12 244 pg/ml (239-931) 07/13/24 04:05
Patient Allergies
morphine Allergy (Verified 07/12/24 17:31)
Unknown
nitrofurantoin Allergy (Verified 07/12/24 17:31)
Unknown
Medications
-
Active Medications
Generic Name Dose Route Start Last Admin
Trade Name Freq PRN Reason Stop Dose Admin
Acetaminophen 650 mg 07/12/24 21:51 07/15/24 00:23
Acetaminophen 325 Mg Tablet PO 08/09/24 21:50 650 mg
Q4H PRN Administration
pain/temp
Aspirin 81 mg 07/13/24 08:00 07/17/24 13:01
Aspirin 81 Mg Chewable Tablet PO 08/10/24 07:59 81 mg
DAILY EVAN Administration
Atorvastatin Calcium 40 mg 07/17/24 18:00
Atorvastatin (Lipitor) 40 Mg Tablet PO 08/14/24 17:59
QPM EVAN
Bisacodyl 10 mg 07/12/24 23:47
Bisacodyl 10 Mg Rectal Suppository RECTAL 08/09/24 23:46
PRN PRN
no BM for 5 days
Calcium Carbonate 500 mg 07/13/24 08:00 07/17/24 13:52
Calcium Carbonate 500 Mg Tablet PO 08/10/24 07:59 500 mg
DAILY EVAN Administration
Clopidogrel Bisulfate 75 mg 07/17/24 12:00 07/17/24 13:01
Clopidogrel 75 Mg Tablet PO 08/14/24 11:59 75 mg
DAILY EVAN Administration
[place] Butter/Zinc Oxide 1 each 07/15/24 20:00 07/17/24 13:12
[place] Butter/Zinc Oxide (Calmol 4) Suppository RECTAL 08/12/24 19:59 1 each
BID EVAN Administration
Cyanocobalamin 1,000 mcg 07/13/24 13:00 07/17/24 13:02
Cyanocobalamin 1,000 Mcg Tablet PO 08/10/24 12:59 1,000 mcg
DAILY EVAN Administration
Dextrose 12.5 grams 07/13/24 23:00
Dextrose 50% (0.5 Grams/Ml) 50 Ml Syringe IV 08/10/24 22:59
[id number] PRN
hypoglycemia
Protocol
Dextrose 12.5 grams 07/13/24 01:04
Dextrose 50% (0.5 Grams/Ml) 50 Ml Syringe IV 08/10/24 01:03
[id number] PRN
hypoglycemia
Protocol
Donepezil HCl 10 mg 07/12/24 22:00 07/16/24 22:45
Donepezil Hcl 10 Mg Tablet PO 08/09/24 21:59 10 mg
HS EVAN Administration
Duloxetine HCl 60 mg 07/13/24 08:00 07/17/24 14:02
Duloxetine Delayed Release 60 Mg Capsule PO 08/10/24 07:59 Not Given
DAILY EVAN
Ergocalciferol 50,000 units 07/13/24 01:00
Ergocalciferol (Vitamin D-2) 56577 Units Capsule PO 08/10/24 00:59
.SUNDAY HS EVAN
Glucagon 1 mg 07/13/24 01:04
Glucagon 1 Mg Vial IM 08/10/24 01:03
PRN PRN
hypoglycemia
Protocol
Heparin Sodium 5,000 units 07/13/24 08:00 07/17/24 13:03
Heparin 5,000 Units/Ml 1 Ml Vial SC 08/10/24 07:59 5,000 units
Q12 EVAN Administration
Insulin Glargine 12 units/ 0.12 mls @ 0 mls/hr 07/13/24 08:00 07/17/24 09:48
Device SC 08/10/24 07:59 0.12 mls
DAILY EVAN Administration
As Directed
Piperacillin Sod/Tazobactam Sod 4.5 gram in 100 mls @ 200 mls/hr 07/15/24 10:00 07/17/24 13:14
Zosyn IV 100 mls
Q6H EVAN Administration
Insulin Aspart 0 units 07/13/24 08:00 07/17/24 13:26
Insulin Aspart Low Resistance 300 Units/3 Ml Pen.Injctr SC 08/10/24 07:59 2 units
AC EVAN Administration
Protocol
Insulin Aspart 3 units 07/13/24 08:00 07/17/24 13:25
Insulin Aspart (100 Units/Ml) 3 Ml Flexpen SC 08/10/24 07:59 3 units
AC EVAN Administration
Levothyroxine Sodium 75 mcg 07/13/24 06:00 07/17/24 05:48
Levothyroxine 75 Mcg Tablet PO 08/10/24 05:59 75 mcg
DAILY@0600 EVAN Administration
Miconazole Nitrate 0 applic 07/16/24 08:00 07/17/24 13:11
Miconazole Powder Bottle TOPICAL 08/13/24 07:59 1 applic
BID EVAN Administration
Polyethylene Glycol 17 grams 07/13/24 08:00 07/17/24 13:10
Polyethylene Glycol Powder 17 Grams Packet PO 08/10/24 07:59 17 grams
DAILY EVAN Administration
Pregabalin 100 mg 07/15/24 12:00 07/17/24 13:02
Pregabalin 100 Mg Capsule PO 08/12/24 11:59 100 mg
DAILY@NOON EVAN Administration
Pregabalin 150 mg 07/13/24 08:00 07/17/24 08:45
Pregabalin 75 Mg Capsule PO 08/10/24 07:59 Not Given
BID EVAN
Sodium Biphosphate/Sodium Phosphate 118 ml 07/12/24 21:51
Fleet Phosphate Enema (Adult) 135 Ml Bottle RECTAL 08/09/24 21:50
PRN PRN
no bm >6 days
Sodium Chloride 0 flush 07/12/24 23:00 07/16/24 10:30
Sodium Chloride 0.9% (Flush) Syringe IV 08/09/24 22:59 1 flush
PER PROTOCOL EVAN Administration
Tamsulosin HCl 0.4 mg 07/12/24 22:00 07/16/24 22:45
Tamsulosin 0.4 Mg Capsule PO 08/09/24 21:59 0.4 mg
HS EVAN Administration
Home Medications
�Medication �Instructions �Recorded
acetaminophen 325 mg tablet 650 mg PO Q4H PRN pain/temp 07/12/24
aspirin 81 mg tablet 81 mg PO DAILY 07/12/24
bisacodyl 5 mg rectal suppository [address] PRN PRN no BM for 5 days 07/12/24
bismuth [id number]-[id number]-resor [address] BID 07/12/24
rectal suppository
calcium carbonate 600 mg PO DAILY 07/12/24
dextrose 40 % oral gel (Glucose 10 g PO Q15M PRN blood sugar <60 07/12/24
Gel)
donepezil 10 mg tablet 10 mg PO HS 07/12/24
duloxetine 60 mg capsule,delayed 60 mg PO DAILY 07/12/24
release sprinkle
ergocalciferol (vitamin D2) 50,000 50,000 unit PO .SUNDAY HS 07/12/24
unit tablet
glucagon 1 mg injection kit 1 mg IM PRN PRN blood sugar <60 07/12/24
insulin lispro 100 unit/mL 1 sliding scale dose SC DIRECTED 07/12/24
subcutaneous pen (Admelog SoloStar
U-100 Insulin lispro)
levothyroxine 75 mcg tablet 75 mcg PO DAILY 07/12/24
magnesium 200 mg tablet 400 mg PO DAILY 07/12/24
methenamine hippurate 1 gram tablet 1 g PO DAILY 07/12/24
polyethylene glycol 3350 17 gram 17 g PO DAILY 07/12/24
oral powder packet
pregabalin 100 mg capsule (Lyrica) 100 mg PO .LUNCH 07/12/24
pregabalin 150 mg capsule (Lyrica) 150 mg PO BID 07/12/24
sodium phosphates 19 gram-[address] PRN PRN no bm >6 days 07/12/24
gram/118 mL enema (Enema)
tamsulosin 0.4 mg capsule (Flomax) 0.4 mg PO HS 07/12/24
Insulin Glargine Lantus As Directed mls/hr SC DAILY 07/16/24
[Lantus] 12 units
cyanocobalamin (vitamin B-12) 1,000 mcg PO DAILY #0 tabs 07/16/24
1,000 mcg tablet
miconazole nitrate 2 % topical 1 applic topical BID #85 grams 07/16/24
powder (Miconazorb AF)
Vital Signs and Labs
-
Vital Signs and Labs:
Vital Signs
Temp Pulse Resp BP Pulse Ox
36.3 C 55 18 135/56 95
07/17/24 08:00 07/17/24 08:00 07/17/24 08:00 07/17/24 08:00 07/17/24 08:00
Lab Results
07/17/24 07:31
07/17/24 07:31
PT 14.8 Sec (11.4-14.6) H 07/13/24 05:11
INR 1.13 07/13/24 05:11
APTT 40.0 Sec (23.4-35.0) H 07/13/24 05:11
Sodium 143 mmol/L (135-145) 07/17/24 07:31
Potassium 4.5 mmol/L (3.5-5.1) 07/17/24 07:31
BUN 26 mg/dl (9-20) H 07/17/24 07:31
Glucose 177 mg/dl (70-99) H 07/17/24 07:31
Calcium 8.7 mg/dl (8.4-10.2) 07/17/24 07:31
Phosphorus 4.3 mg/dl (2.5-4.5) 07/13/24 04:05
LDL Cholesterol Direct Cancelled 07/17/24 12:09
Vitamin B12 244 pg/ml (239-931) 07/13/24 04:05
Medications
-
Medications:
Generic Name Dose Route Start Last Admin
Trade Name Freq PRN Reason Stop Dose Admin
Acetaminophen 650 mg 07/12/24 21:51 07/15/24 00:23
Acetaminophen 325 Mg Tablet PO 08/09/24 21:50 650 mg
Q4H PRN Administration
pain/temp
Aspirin 81 mg 07/13/24 08:00 07/17/24 13:01
Aspirin 81 Mg Chewable Tablet PO 08/10/24 07:59 81 mg
DAILY EVAN Administration
Atorvastatin Calcium 40 mg 07/17/24 18:00
Atorvastatin (Lipitor) 40 Mg Tablet PO 08/14/24 17:59
QPM EVAN
Bisacodyl 10 mg 07/12/24 23:47
Bisacodyl 10 Mg Rectal Suppository RECTAL 08/09/24 23:46
PRN PRN
no BM for 5 days
Calcium Carbonate 500 mg 07/13/24 08:00 07/17/24 13:52
Calcium Carbonate 500 Mg Tablet PO 08/10/24 07:59 500 mg
DAILY EVAN Administration
Clopidogrel Bisulfate 75 mg 07/17/24 12:00 07/17/24 13:01
Clopidogrel 75 Mg Tablet PO 08/14/24 11:59 75 mg
DAILY EVAN Administration
[place] Butter/Zinc Oxide 1 each 07/15/24 20:00 07/17/24 13:12
[place] Butter/Zinc Oxide (Calmol 4) Suppository RECTAL 08/12/24 19:59 1 each
BID EVAN Administration
Cyanocobalamin 1,000 mcg 07/13/24 13:00 07/17/24 13:02
Cyanocobalamin 1,000 Mcg Tablet PO 08/10/24 12:59 1,000 mcg
DAILY EVAN Administration
Dextrose 12.5 grams 07/13/24 23:00
Dextrose 50% (0.5 Grams/Ml) 50 Ml Syringe IV 08/10/24 22:59
[id number] PRN
hypoglycemia
Protocol
Dextrose 12.5 grams 07/13/24 01:04
Dextrose 50% (0.5 Grams/Ml) 50 Ml Syringe IV 08/10/24 01:03
[id number] PRN
hypoglycemia
Protocol
Donepezil HCl 10 mg 07/12/24 22:00 07/16/24 22:45
Donepezil Hcl 10 Mg Tablet PO 08/09/24 21:59 10 mg
HS EVAN Administration
Duloxetine HCl 60 mg 07/13/24 08:00 07/17/24 14:02
Duloxetine Delayed Release 60 Mg Capsule PO 08/10/24 07:59 Not Given
DAILY EVAN
Ergocalciferol 50,000 units 07/13/24 01:00
Ergocalciferol (Vitamin D-2) 50255 Units Capsule PO 08/10/24 00:59
.SUNDAY HS EVAN
Glucagon 1 mg 07/13/24 01:04
Glucagon 1 Mg Vial IM 08/10/24 01:03
PRN PRN
hypoglycemia
Protocol
Heparin Sodium 5,000 units 07/13/24 08:00 07/17/24 13:03
Heparin 5,000 Units/Ml 1 Ml Vial SC 08/10/24 07:59 5,000 units
Q12 EVAN Administration
Insulin Glargine 12 units/ 0.12 mls @ 0 mls/hr 07/13/24 08:00 07/17/24 09:48
Device SC 08/10/24 07:59 0.12 mls
DAILY EVAN Administration
As Directed
Piperacillin Sod/Tazobactam Sod 4.5 gram in 100 mls @ 200 mls/hr 07/15/24 10:00 07/17/24 13:14
Zosyn IV 100 mls
Q6H EVAN Administration
Insulin Aspart 0 units 07/13/24 08:00 07/17/24 13:26
Insulin Aspart Low Resistance 300 Units/3 Ml Pen.Injctr SC 08/10/24 07:59 2 units
AC EVAN Administration
Protocol
Insulin Aspart 3 units 07/13/24 08:00 07/17/24 13:25
Insulin Aspart (100 Units/Ml) 3 Ml Flexpen SC 08/10/24 07:59 3 units
AC EVAN Administration
Levothyroxine Sodium 75 mcg 07/13/24 06:00 07/17/24 05:48
Levothyroxine 75 Mcg Tablet PO 08/10/24 05:59 75 mcg
DAILY@0600 EVAN Administration
Miconazole Nitrate 0 applic 07/16/24 08:00 07/17/24 13:11
Miconazole Powder Bottle TOPICAL 08/13/24 07:59 1 applic
BID EVAN Administration
Polyethylene Glycol 17 grams 07/13/24 08:00 07/17/24 13:10
Polyethylene Glycol Powder 17 Grams Packet PO 08/10/24 07:59 17 grams
DAILY EVAN Administration
Pregabalin 100 mg 07/15/24 12:00 07/17/24 13:02
Pregabalin 100 Mg Capsule PO 08/12/24 11:59 100 mg
DAILY@NOON EVAN Administration
Pregabalin 150 mg 07/13/24 08:00 07/17/24 08:45
Pregabalin 75 Mg Capsule PO 08/10/24 07:59 Not Given
BID EVAN
Sodium Biphosphate/Sodium Phosphate 118 ml 07/12/24 21:51
Fleet Phosphate Enema (Adult) 135 Ml Bottle RECTAL 08/09/24 21:50
PRN PRN
no bm >6 days
Sodium Chloride 0 flush 07/12/24 23:00 07/16/24 10:30
Sodium Chloride 0.9% (Flush) Syringe IV 08/09/24 22:59 1 flush
PER PROTOCOL EVAN Administration
Tamsulosin HCl 0.4 mg 07/12/24 22:00 07/16/24 22:45
Tamsulosin 0.4 Mg Capsule PO 08/09/24 21:59 0.4 mg
HS EVAN Administration
Home Medications
-
Home Medications
acetaminophen 325 mg tablet 650 mg PO Q4H PRN pain/temp 07/12/24
aspirin 81 mg tablet 81 mg PO DAILY 07/12/24
bisacodyl 5 mg rectal suppository [address] PRN PRN no BM for 5 days 07/12/24
bismuth [id number]-[id number]-PxBl-resor rectal suppository [address] BID 07/12/24
calcium carbonate 600 mg PO DAILY 07/12/24
dextrose 40 % oral gel (Glucose Gel) 10 g PO Q15M PRN blood sugar <60 07/12/24
donepezil 10 mg tablet 10 mg PO HS 07/12/24
duloxetine 60 mg capsule,delayed release sprinkle 60 mg PO DAILY 07/12/24
ergocalciferol (vitamin D2) 50,000 unit tablet 50,000 unit PO .SUNDAY HS 07/12/24
glucagon 1 mg injection kit 1 mg IM PRN PRN blood sugar <60 07/12/24
insulin lispro 100 unit/mL subcutaneous pen (Admelog SoloStar U-100 Insulin lispro) 1 sliding scale dose SC DIRECTED 07/12/24
levothyroxine 75 mcg tablet 75 mcg PO DAILY 07/12/24
magnesium 200 mg tablet 400 mg PO DAILY 07/12/24
methenamine hippurate 1 gram tablet 1 g PO DAILY 07/12/24
polyethylene glycol 3350 17 gram oral powder packet 17 g PO DAILY 07/12/24
pregabalin 100 mg capsule (Lyrica) 100 mg PO .LUNCH 07/12/24
pregabalin 150 mg capsule (Lyrica) 150 mg PO BID 07/12/24
sodium phosphates 19 gram-7 gram/118 mL enema (Enema) [address] PRN PRN no bm >6 days 07/12/24
tamsulosin 0.4 mg capsule (Flomax) 0.4 mg PO HS 07/12/24
Insulin Glargine Lantus [Lantus] 12 units As Directed mls/hr SC DAILY 07/16/24
cyanocobalamin (vitamin B-12) 1,000 mcg tablet 1,000 mcg PO DAILY #0 tabs 07/16/24
miconazole nitrate 2 % topical powder (Miconazorb AF) 1 applic topical BID #85 grams 07/16/24
[2024-07-17] MEDS: LR 500 IV (14:35)
--- NOTE | 2024-07-17 14:56 | W.PN.ID1 ---
Date of Service
Date of Service: July 17, 2024
Today's Communication
Continue antibiotics.
Assessment / Plan
Complicated urinary tract infection
-Cultures currently with Pseudomonas and ESBL E. coli
Leukocytosis
Encephalopathy; suspect TME
MIKE; improved
Dementia
DM (uncontrolled; HbA1c = 9.0)
BPH
Hypothyroidism
Depression
Recommendations:
Urine cultures with Pseudomonas and ESBL E. coli.
Continue with Zosyn. Would complete a 10-day course of therapy (through 07/24)
Continue with supportive measures.
����������������������������������������������������������
Chief Complaint
-: UTI
Subjective / Review of Systems
Review of Systems: No Fever
Vital Signs / Physical Exam
Vital Signs
Vital Signs
Temp Pulse Resp BP Pulse Ox
97.4 F 55 18 135/56 95
07/17/24 08:00 07/17/24 08:00 07/17/24 08:00 07/17/24 08:00 07/17/24 08:00
Physical Exam
Constitutional: Comfortable, Chronically Ill, Non-toxic and Other (Appears more awake today.)
Eyes: Sclera Anicteric
Cardiovascular: S1/S2; Negative S3/S4
Pulmonary: Non Labored
Gastrointestinal: Soft and Non Distended
Psychological: Calm
Objective Data
Lab Data
Lab Results
07/17/24 07:31
07/17/24 07:31
PT 14.8 Sec (11.4-14.6) H 07/13/24 05:11
INR 1.13 07/13/24 05:11
APTT 40.0 Sec (23.4-35.0) H 07/13/24 05:11
Estimated Creat Clear 52 ml/min 07/17/24 07:31
Lactic Acid Cancelled 07/13/24 10:00
Total Bilirubin 0.6 mg/dl (0.2-1.3) 07/17/24 07:31
AST 13 U/L (17-59) L 07/17/24 07:31
ALT < 10 U/L (0-50) 07/17/24 07:31
Alkaline Phosphatase 72 U/L (38-126) 07/17/24 07:31
Most recent labs reviewed.
Micro Results:
07/12/24 22:18 Blood Culture - Preliminary
Blood/Venous No Growth in 4 days- Final report to follow
07/12/24 22:18 Blood Culture - Preliminary
Blood/Venous No Growth in 4 days- Final report to follow
07/12/24 17:33 Urine Culture - Final
Urine Pseudomonas aeruginosa
Escherichia coli - ESBL
Urine Culture Final 07/16/24-825
CC: Greater than 100,000 CFU/ML Pseudomonas aeruginosa
CC: Greater than 100,000 CFU/ML Escherichia coli - ESBL
Organism 1 Pseudomonas aeruginosa
Organism 2 Escherichia coli - ESBL
P.AERU EC-ESBL
M.I.C. RX M.I.C. RX
--------- --- --------- ---
Amoxicillin/Potas. Clavulanate <=8/4 S
Ampicillin >16 R
Ampicillin/Sulbactam >16/8 R
Aztreonam <=4 S >16 R
Cefazolin >16 R
Cefepime 16 I >16 R
Ceftazidime 4 S >16 R
Ceftriaxone >2 R
Ertapenem <=0.5 S
Ciprofloxacin 0.5 S >2 R
Gentamicin <=2 S
Meropenem <=1 S <=1 S
Nitrofurantoin-Urine Only <=32 S
Piperacillin/Tazobactam <=8 S <=8 S
Tetracycline <=4 S
Tobramycin <=2 S <=2 S
Trimethoprim/Sulfamethoxazole <=2/38 S
Imaging:
07/12/2024 CT head with w/o IV contrast: No evidence of acute intracranial abnormality. There is a noted wedge-shaped area of volume loss and decreased density at the left parietal occipital junction compatible with old infarction. Please see full
dictation for additional detail.
--- NOTE | 2024-07-17 15:38 | CARDSERVLU ---
Echocardiogram with Lumason completed after protocol screening completed. Allergies verified.
Patent IV site: RAC
IV site flushed with 0.9% NaCl pre and post administration.
Diluted bolus method utilized to enhance visualization of ventricular aldridge.
Total volume given: __4__ mL
Patient tolerated all procedures well without complications.
[2024-07-17 17:32] LABS: Glucose - Point of Care 156 mg/dl (70-99)
[2024-07-17] MEDS: LIPITOR 40 MG PO (18:24)
[2024-07-17] MEDS: THIAMINE INJECTION 100 MG IV (18:25)
[2024-07-17] MEDS: ARICEPT 10 MG PO (21:40)
[2024-07-17] MEDS: LYRICA 150 MG PO (21:40)
[2024-07-17] MEDS: FLOMAX 0.4 MG PO (21:40)
[2024-07-17 22:08] LABS: Glucose - Point of Care 236 mg/dl (70-99)
[2024-07-17 23:13] VITALS: BP 135/51
[2024-07-18] MEDS: ZOSYN 100 IV ×4 (04:10→21:29)
[2024-07-18] MEDS: SYNTHROID 75 MCG PO (06:05)
[2024-07-18 08:00] VITALS: BP 154/64
[2024-07-18 08:18] LABS: Glucose - Point of Care 155 mg/dl (70-99)
[2024-07-18 09:23] LABS: Hematocrit 24.6 % (39.0-52.0); Hemoglobin 8.3 g/dL (13.0-18.0); Mean Corp Hgb Conc. 33.7 g/dL (33.0-37.0); Mean Corpuscular Hgb 29.7 pg (27.0-31.0); Mean Corpuscular Volume 88.2 fL (80.0-94.0); Red Blood Cell Count 2.79 10^6/uL (4.70-6.10); White Blood Cell Count 7.1 10^3/uL (4.8-10.8)
[2024-07-18 09:55] LABS: Platelet Count 166 10^3/uL (130-400)
[2024-07-18] MEDS: NOVOLOG FLEXPEN 3 UNITS SC ×3 (10:31→18:37)
[2024-07-18] MEDS: NOVOLOG FLEXPEN-LOW RESISTANCE 1 UNITS SC (10:31)
[2024-07-18] MEDS: THIAMINE INJECTION 100 MG IV (10:32)
[2024-07-18] MEDS: CYMBALTA DELAYED RELEASE 60 MG PO (10:32)
[2024-07-18] MEDS: [UNRECOGNIZED DRUG - OTHER] RECTAL ×2 (10:33→17:53)
[2024-07-18] MEDS: HEPARIN 5000 UNITS SC ×2 (10:33→20:35)
[2024-07-18] MEDS: OSCAL CAL 500 500 MG PO (10:33)
[2024-07-18] MEDS: LOW STRENGTH ASPIRIN 81 MG PO (10:33)
[2024-07-18] MEDS: PLAVIX 75 MG PO (10:33)
[2024-07-18] MEDS: LYRICA 150 MG PO (10:33)
[2024-07-18] MEDS: VITAMIN B-12 1000 MCG PO (10:33)
[2024-07-18] MEDS: LANTUS 0.12 UNITS SC (10:34)
[2024-07-18] MEDS: MIRALAX 17 GRAMS PO (10:34)
[2024-07-18 11:12] LABS: ALT (SGPT) < 10 U/L (0-50); AST (SGOT) 15 U/L (17-59); Albumin 3.3 g/dl (3.5-5.0); Alkaline Phosphatase 72 U/L (38-126); Blood Urea Nitrogen 24 mg/dl (9-20); Calcium 8.3 mg/dl (8.4-10.2); Carbon Dioxide 31 mmol/L (22-30); Chloride 102 mmol/L (98-107); Estimated Creatinine Clearance 52 ml/min; Glucose 240 mg/dl (70-99); Potassium 4.3 mmol/L (3.5-5.1); Sodium 140 mmol/L (135-145); Total Bilirubin 0.6 mg/dl (0.2-1.3); Total Protein 7.1 g/dl (6.3-8.2); eGFR 47.06
--- NOTE | 2024-07-18 11:14 | W.PN.HOSP.TC ---
Addendum entered and electronically signed by Rene Lucero MD 07/18/24 11:29:
Outpatient cardiac monitoring, spoke to cardiology
Original Note:
Today's Communication/Plan
-
Aspirin, statin, Plavix for 20 days additional
Thiamine
Continue Zosyn until 07/24/2024
Follow-up PCP, neurology outpatient
Assessment / Plan
Assessment / Plan
Gen-awake, alert, confused, NAD
HEENT-NC, AT, anicteric, clear oral mm
Neck-supple
CV-reg, no M, +S1/S2
Lungs-clear B/L
Abd-soft, NT, ND
Ext-no edema
Musculoskeletal-no cyanosis, clubbing
Skin-warm and dry
Neuro-grossly non-focal
Psych-calm, cooperative
Acute TME -likely due to UTI in the setting of underlying dementia along with acute/subacute CVA right temporal love
CT head without evidence of acute disease. 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 Followed outpatient
Complicated UTI -presentation with acute TME, leukocytosis. Cultures growing Pseudomonas aeruginosa and ESBL - EColi -await ID recs - cont zosyn - 10 days
Acute/Subacute CVA - Right temporal Lobe; Start plavix for 21 days total; Continue ASA. Statin; Neuro consulted; echo with no vegetation, carotid ultrasound with less than 50% stenosis. Thiamine.
Hyperkalemia -in the setting of suspected MIKE on CKD. Give a dose of Lokelma.
MIKE v CKD - ctm
DM2 with hyperglycemia - hemoglobin A1c: 9. cont insulin regimen; titrate as needed hemoglobin A1c outpatient follow-up
Normocytic anemia; Iron Deficiency Anemia; -unknown etiology or chronicity. Hemoglobin 8.8 today. Monitor for now. F/u outpt for egd, colonoscopy as required
Hypothyroidism -levothyroxine.
Dementia, unknown type
Obesity due to excess calories
full code
More than 30 minutes spent in discharge including
Final examination of the patient
Summarizing hospital stay
Instructions for continuing care to all relevant caregivers
Preparation of discharge records, prescriptions, and referral forms
Total time spent (37 in minutes):
Anticipated Discharge: Today
Subjective/Interval History
-
Date of Service: July 18, 2024
No acute events overnight
Objective Data
-
Labs:
Laboratory Results
07/18/24 07/18/24
07:47 10:24
WBC 7.1
Hgb 8.3 L
Hct 24.6 L
Plt Count 166 D
Sodium Cancelled 140
Potassium Cancelled 4.3
Chloride Cancelled 102
Carbon Dioxide Cancelled 31 H
BUN Cancelled 24 H
Creatinine Cancelled 1.5 H
Glucose Cancelled 240 H
Calcium Cancelled 8.3 L
Total Bilirubin Cancelled 0.6
AST Cancelled 15 L
ALT Cancelled < 10
Alkaline Phosphatase Cancelled 72
Vital Signs:
Vital Signs
Temp Pulse Resp BP Pulse Ox
97.8 F 60 20 135/51 97
07/17/24 23:13 07/17/24 23:13 07/17/24 23:13 07/17/24 23:13 07/17/24 23:13
I&O
07/17/24 07/18/24 07/19/24
06:59 06:59 06:59
Intake Total 920 / 920 1140 / 1140 440 / 440
Output Total 700 / 700
Balance 220 / 220 1140 / 1140 440 / 440
Review of Systems
-
History Source: Patient
All other systems: Not reviewed unless documented
Data Reviewed
-
Diagnostic Radiology: Report Reviewed by me
CT Scan: Report Reviewed by me
MRI: Report Reviewed by me
Medical Tests (Nuc Med, Echo etc): Image personally visualized and interpreted
Labs: Labs Reviewed by me
--- NOTE | 2024-07-18 11:21 | W.DS.TRANS ---
DC Summary - Internist Medical Doctor Md
-
Discharge Instructions:
Discharge Diagnosis/Procedures Acute TME
Complicated UTI
Acute CVA
Diet Low Cholesterol,Low Fat,Diabetic, Carb
Controlled
Activity As tolerated
Blood Work cbc and cmp in 3-5 days with pcp; hgba1c in 3
months
Instructions:
Stand-Alone Forms:
Changes to Home Medications: Yes
Discharge Medications:
DC Medications w/original date entered in [employer]
acetaminophen 325 mg tablet 650 mg PO Q4H PRN pain/temp 07/12/24
aspirin 81 mg tablet 81 mg PO DAILY 07/12/24
bisacodyl 5 mg rectal suppository 1 mg MA PRN PRN no BM for 5 days 07/12/24
bismuth seya-hvslld-OjJo-resor rectal suppository 1 supp MA BID 07/12/24
calcium carbonate 600 mg PO DAILY 07/12/24
dextrose 40 % oral gel (Glucose Gel) 10 g PO Q15M PRN blood sugar <60 07/12/24
donepezil 10 mg tablet 10 mg PO HS 07/12/24
duloxetine 60 mg capsule,delayed release sprinkle 60 mg PO DAILY 07/12/24
ergocalciferol (vitamin D2) 50,000 unit tablet 50,000 unit PO .SUNDAY HS 07/12/24
glucagon 1 mg injection kit 1 mg IM PRN PRN blood sugar <60 07/12/24
insulin lispro 100 unit/mL subcutaneous pen (Admelog SoloStar U-100 Insulin lispro) 1 sliding scale dose SC DIRECTED 07/12/24
levothyroxine 75 mcg tablet 75 mcg PO DAILY 07/12/24
magnesium 200 mg tablet 400 mg PO DAILY 07/12/24
methenamine hippurate 1 gram tablet 1 g PO DAILY 07/12/24
polyethylene glycol 3350 17 gram oral powder packet 17 g PO DAILY 07/12/24
pregabalin 100 mg capsule (Lyrica) 100 mg PO .LUNCH 07/12/24
pregabalin 150 mg capsule (Lyrica) 150 mg PO BID 07/12/24
sodium phosphates 19 gram-7 gram/118 mL enema (Enema) 118 ml MA PRN PRN no bm >6 days 07/12/24
tamsulosin 0.4 mg capsule (Flomax) 0.4 mg PO HS 07/12/24
Insulin Glargine Lantus [Lantus] 12 units As Directed mls/hr SC DAILY 07/16/24
cyanocobalamin (vitamin B-12) 1,000 mcg tablet 1,000 mcg PO DAILY #0 tabs 07/16/24
miconazole nitrate 2 % topical powder (Miconazorb AF) 1 applic topical BID #85 grams 07/16/24
atorvastatin 40 mg tablet 40 mg PO QPM 30 days #0 tabs 07/18/24
clopidogrel 75 mg tablet 75 mg PO DAILY 20 days #0 tabs 07/18/24
insulin aspart U-100 100 unit/mL (3 mL) subcutaneous pen 3 unit (0.03 mL) SC AC #15 mL 07/18/24
piperacillin-tazobactam 4.5 gram/100 mL dextrose(iso-osm) IV piggyback (Zosyn) 4.5 g (112.5 mL) IV Q6H #0 mL 07/18/24
thiamine HCl (vitamin B1) 100 mg capsule 100 mg PO DAILY 30 days #30 caps 07/18/24
Home Medication Changes
Insulin Glargine Lantus [Lantus] 12 units As Directed mls/hr SC DAILY 07/16/24
cyanocobalamin (vitamin B-12) 1,000 mcg tablet 1,000 mcg PO DAILY #0 tabs 07/16/24
miconazole nitrate 2 % topical powder (Miconazorb AF) 1 applic topical BID #85 grams 07/16/24
atorvastatin 40 mg tablet 40 mg PO QPM 30 days #0 tabs 07/18/24
clopidogrel 75 mg tablet 75 mg PO DAILY 20 days #0 tabs 07/18/24
insulin aspart U-100 100 unit/mL (3 mL) subcutaneous pen 3 unit (0.03 mL) SC AC #15 mL 07/18/24
piperacillin-tazobactam 4.5 gram/100 mL dextrose(iso-osm) IV piggyback (Zosyn) 4.5 g (112.5 mL) IV Q6H #0 mL 07/18/24
thiamine HCl (vitamin B1) 100 mg capsule 100 mg PO DAILY 30 days #30 caps 07/18/24
Pending Results: No
[2024-07-18 11:51] LABS: Glucose - Point of Care 289 mg/dl (70-99)
--- NOTE | 2024-07-18 12:18 | CM ---
CM reviewed chart, patient for discharge today. Call placed to patients daughterYvonne (POA). IMM emailed to Yvonne, received and will be appealing discharge, does not feel comfortable with patient discharge to facility over weekend. Update to
Hospitalist. Daughter requesting call from nurse, will update. CM will continue to follow for all discharge planning needs.
Plan; Daughter appealing discharge
--- NOTE | 2024-07-18 13:32 | PN.CDI ---
CDI
- -
CDI:
Physician Documentation Request
Admit Date: 07/12/24 22:12
Dear Doctor Nic,
07/18 Hospitalist PN: 'MIKE v CKD - ctm'
Laboratory Tests
07/12/24 07/16/24 07/18/24
17:33 07:34 10:24
Creatinine 1.8 H 1.3 1.5 H
Criteria for MIKE*
1 Increase in serum creatinine by > or = to 0.3 mg/dL (> or = to 26.5 micromol/L) within 48 hours, OR
2 Increase in serum creatinine to > or = to 1.5 times baseline, which is known or presumed to have occurred within 7 days, OR
3 Urine volume < 0.5 nL/kg/hour for six hours
Please clarify the following:
____ - MIKE was present on admission and is now resolved.
____ - MIKE was present on admission and is still being monitored, evaluated or treated
____ - MIKE was ruled out
____ - MIKE is still a likely, suspected, probable diagnosis
____ - Other
____ - Unable to determine
Use of terms such as suspected, likely, concern for, or probable (associated with a specific diagnosis that is being evaluated, monitored, or treated as if it exists) are acceptable and can be coded in the inpatient setting, when documented at the
time of discharge.
Thank you,
Laverne Brooks RN, BSN
CDI Specialist
Available via [employer] text
Please use your independent medical judgment in providing your response.
--- NOTE | 2024-07-18 13:36 | PN.CDI ---
CDI
- -
CDI:
Physician Documentation Request
Admit Date: 07/12/24 22:12
Dear Doctor Nic,
Patient admitted for TME.
Wound Care Clinical Panel
07/16/24
20:00
Pressure injury appearance (Stage 1) [Generalized Sacrum] Non blanchable
red
Pressure injury stage [Generalized Sacrum] Stage 1
Surrounding Skin - [Generalized Sacrum] Dry and intact
Local erythema
Physician documentation of the type and location of wounds is required for compliant documentation. Based on the above clinical findings and your assessment, please provide the following in your progress note:
1. Location of the ulcer/wound, including laterality.
2. Type (etiology) of ulcer/wound:
- Diabetic ulcer
- Arterial (ischemic) ulcer
- Traumatic wound
- Venous stasis ulcer
- Pressure (decubitus) ulcer
- Non-healing surgical wound
- Other
- Unable to determine
3. For a non-pressure ulcer, please indicate the depth/severity:
- Limited to the breakdown of skin
- With fat layer exposed
- With necrosis of muscle
- With necrosis of bone
- Other
- Unable to determine
4. If a pressure ulcer, please also include the stage* of the ulcer:
- Stage 1 - Skin intact, non-blanchable redness
- Stage 2 - Partial thickness loss of dermis, includes intact or open blister
- Stage 3 - Full thickness tissue not including bone, tendon or muscle
- Stage 4 - Full thickness tissue loss, including exposed bone, tendon or muscle
- Unstageable - Full thickness loss in which the base of the ulcer is covered by slough (yellow, nicholson, springer, green or brown) and/or eschar (nicholson, brown or black) in the wound bed.
- Unable to determine
Use of terms such as suspected, likely, concern for, or probable (associated with a specific diagnosis that is being evaluated, monitored, or treated as if it exists) are acceptable and can be coded in the inpatient setting, when documented at the
time of discharge.
Thank you,
Laverne Brooks RN, BSN
CDI Specialist
Available via [place] text
Please use your independent medical judgment in providing your response.
*Source: National Pressure Ulcer Advisory Panel (NPUAP)
[2024-07-18] MEDS: LYRICA 100 MG PO (14:30)
[2024-07-18] MEDS: NOVOLOG FLEXPEN-LOW RESISTANCE 3 UNITS SC (14:31)
[2024-07-18] MEDS: DESENEX/MITRAZOL/ZEASORB 1 APPLIC TOPICAL ×2 (14:58→20:35)
[2024-07-18 16:00] VITALS: BP 139/59
--- NOTE | 2024-07-18 16:11 | W.PN.ID1 ---
Date of Service
Date of Service: July 18, 2024
Today's Communication
Continue current course of antibiotics.
Assessment / Plan
Complicated urinary tract infection
-Cultures currently with Pseudomonas and ESBL E. coli
Leukocytosis
Encephalopathy; suspect TME
MIKE; improved
Dementia
DM (uncontrolled; HbA1c = 9.0)
BPH
Hypothyroidism
Depression
Recommendations:
Urine cultures with Pseudomonas and ESBL E. coli.
Continue with Zosyn. Would complete a 10-day course of therapy (through 07/24)
Continue with supportive measures.
����������������������������������������������������������
Chief Complaint
-: UTI
Subjective / Review of Systems
Patient seen and examined. No significant changes overnight. Remains afebrile.
Vital Signs / Physical Exam
Vital Signs
Vital Signs
Temp Pulse Resp BP Pulse Ox
97.6 F 52 18 154/64 98
07/18/24 08:00 07/18/24 08:00 07/18/24 08:00 07/18/24 08:00 07/18/24 08:00
Physical Exam
Constitutional: Comfortable, Chronically Ill and Non-toxic
Eyes: Sclera Anicteric
Cardiovascular: S1/S2; Negative S3/S4
Pulmonary: Non Labored
Gastrointestinal: Soft, Non Distended and Normal Bowel Sounds
Psychological: Calm
Objective Data
Lab Data
Lab Results
07/18/24 07:47
07/18/24 10:24
PT 14.8 Sec (11.4-14.6) H 07/13/24 05:11
INR 1.13 07/13/24 05:11
APTT 40.0 Sec (23.4-35.0) H 07/13/24 05:11
Estimated Creat Clear 52 ml/min 07/18/24 10:24
Lactic Acid Cancelled 07/13/24 10:00
Total Bilirubin 0.6 mg/dl (0.2-1.3) 07/18/24 10:24
AST 15 U/L (17-59) L 07/18/24 10:24
ALT < 10 U/L (0-50) 07/18/24 10:24
Alkaline Phosphatase 72 U/L (38-126) 07/18/24 10:24
Most recent labs reviewed.
Micro Results:
07/12/24 22:18 Blood Culture - Final
Blood/Venous No Growth - Final Report
07/12/24 22:18 Blood Culture - Final
Blood/Venous No Growth - Final Report
07/12/24 17:33 Urine Culture - Final
Urine Pseudomonas aeruginosa
Escherichia coli - ESBL
Urine Culture Final 07/16/24-825
CC: Greater than 100,000 CFU/ML Pseudomonas aeruginosa
CC: Greater than 100,000 CFU/ML Escherichia coli - ESBL
Organism 1 Pseudomonas aeruginosa
Organism 2 Escherichia coli - ESBL
P.AERU EC-ESBL
M.I.C. RX M.I.C. RX
--------- --- --------- ---
Amoxicillin/Potas. Clavulanate <=8/4 S
Ampicillin >16 R
Ampicillin/Sulbactam >16/8 R
Aztreonam <=4 S >16 R
Cefazolin >16 R
Cefepime 16 I >16 R
Ceftazidime 4 S >16 R
Ceftriaxone >2 R
Ertapenem <=0.5 S
Ciprofloxacin 0.5 S >2 R
Gentamicin <=2 S
Meropenem <=1 S <=1 S
Nitrofurantoin-Urine Only <=32 S
Piperacillin/Tazobactam <=8 S <=8 S
Tetracycline <=4 S
Tobramycin <=2 S <=2 S
Trimethoprim/Sulfamethoxazole <=2/38 S
Imaging:
07/12/2024 CT head with w/o IV contrast: No evidence of acute intracranial abnormality. There is a noted wedge-shaped area of volume loss and decreased density at the left parietal occipital junction compatible with old infarction. Please see full
dictation for additional detail.
Care Review
Plan reviewed with: Physician (Hospitalist)
[2024-07-18 16:51] LABS: Hepatitis B Surface Antigen Negative (Negative)
[2024-07-18 16:57] LABS: HIV Combo Negative (Negative)
[2024-07-18 17:07] LABS: Glucose - Point of Care 247 mg/dl (70-99)
[2024-07-18 17:09] LABS: Hepatitis C Antibody Negative (Negative)
[2024-07-18] MEDS: LIPITOR 40 MG PO (17:28)
--- NOTE | 2024-07-18 18:12 | PTCARENOTE ---
Patient giving verbal consent for HIV labwork. Patient having difficulty signing name on consent form. Consent form with signature attempt placed in patient chart.
[2024-07-18] MEDS: NOVOLOG FLEXPEN-LOW RESISTANCE 2 UNITS SC (18:36)
[2024-07-18 18:40] LABS: Glucose - Point of Care 221 mg/dl (70-99)
[2024-07-18] MEDS: [UNRECOGNIZED DRUG - OTHER] 1 EACH RECTAL (20:35)
[2024-07-18] MEDS: LYRICA PO (20:51)
[2024-07-18] MEDS: FLOMAX 0.4 MG PO (21:26)
[2024-07-18] MEDS: ARICEPT 10 MG PO (21:26)
[2024-07-18 21:33] LABS: Glucose - Point of Care 287 mg/dl (70-99)
[2024-07-18 23:50] VITALS: BP 127/59
[2024-07-19] MEDS: ZOSYN 100 IV ×4 (04:56→21:01)
[2024-07-19] MEDS: SYNTHROID 75 MCG PO (05:00)
[2024-07-19 07:45] VITALS: BP 129/50
[2024-07-19] MEDS: OSCAL CAL 500 500 MG PO (08:05)
[2024-07-19] MEDS: LOW STRENGTH ASPIRIN 81 MG PO (08:05)
[2024-07-19] MEDS: THIAMINE INJECTION 100 MG IV (08:06)
[2024-07-19] MEDS: CYMBALTA DELAYED RELEASE 60 MG PO (08:06)
[2024-07-19] MEDS: LYRICA 150 MG PO ×2 (08:06→19:30)
[2024-07-19] MEDS: HEPARIN 5000 UNITS SC ×2 (08:06→19:29)
[2024-07-19] MEDS: PLAVIX 75 MG PO (08:06)
[2024-07-19] MEDS: VITAMIN B-12 1000 MCG PO (08:06)
[2024-07-19] MEDS: MIRALAX 17 GRAMS PO (08:07)
[2024-07-19 08:17] LABS: Glucose - Point of Care 129 mg/dl (70-99)
[2024-07-19] MEDS: NOVOLOG FLEXPEN-LOW RESISTANCE SC (08:18)
[2024-07-19] MEDS: [UNRECOGNIZED DRUG - OTHER] 1 EACH RECTAL ×2 (08:22→19:28)
[2024-07-19 09:12] LABS: Hemoglobin 8.8 g/dL (13.0-18.0); Mean Corp Hgb Conc. 32.6 g/dL (33.0-37.0); Mean Corpuscular Hgb 29.4 pg (27.0-31.0); Mean Corpuscular Volume 90.3 fL (80.0-94.0); Mean Platelet Volume 9.8 fL (7.4-10.4); Platelet Count 291 10^3/uL (130-400); Red Blood Cell Count 2.99 10^6/uL (4.70-6.10); Red Cell Dist. Width 14.2 % (11.5-14.5); White Blood Cell Count 8.2 10^3/uL (4.8-10.8)
[2024-07-19] MEDS: NOVOLOG FLEXPEN 3 UNITS SC ×2 (09:25→13:01)
[2024-07-19] MEDS: LANTUS 0.12 UNITS SC (09:27)
[2024-07-19] MEDS: DESENEX/MITRAZOL/ZEASORB 1 APPLIC TOPICAL ×2 (09:28→19:28)
[2024-07-19 10:27] LABS: ALT (SGPT) < 10 U/L (0-50); AST (SGOT) 13 U/L (17-59); Albumin 3.3 g/dl (3.5-5.0); Alkaline Phosphatase 77 U/L (38-126); Blood Urea Nitrogen 23 mg/dl (9-20); Calcium 8.6 mg/dl (8.4-10.2); Carbon Dioxide 33 mmol/L (22-30); Chloride 100 mmol/L (98-107); Estimated Creatinine Clearance 49 ml/min; Glucose 143 mg/dl (70-99); Potassium 4.1 mmol/L (3.5-5.1); Sodium 140 mmol/L (135-145); Total Bilirubin 0.5 mg/dl (0.2-1.3); Total Protein 7.1 g/dl (6.3-8.2); eGFR 43.56
[2024-07-19 12:19] LABS: Glucose - Point of Care 265 mg/dl (70-99)
--- NOTE | 2024-07-19 13:00 | W.PN.HOSP.TC ---
Addendum entered and electronically signed by Rene Lucero MD 07/20/24 14:10:
[id number]
Addendum entered and electronically signed by Rene Lucero MD 07/19/24 15:44:
MIKE was present on admission and is now resolved.
Stage 1 generalized sacral pressure injury
Original Note:
Today's Communication/Plan
-
dc ready - daughter appealed dc
insulin adjustment
Assessment / Plan
Assessment / Plan
Gen-awake, alert, confused, NAD
HEENT-NC, AT, anicteric, clear oral mm
Neck-supple
CV-reg, no M, +S1/S2
Lungs-clear B/L
Abd-soft, NT, ND
Ext-no edema
Musculoskeletal-no cyanosis, clubbing
Skin-warm and dry
Neuro-grossly non-focal
Psych-calm, cooperative
Acute TME -likely due to UTI in the setting of underlying dementia along with acute/subacute CVA right temporal love
CT head without evidence of acute disease. 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 Followed outpatient
Complicated UTI -presentation with acute TME, leukocytosis. Cultures growing Pseudomonas aeruginosa and ESBL - EColi - ID recs - cont zosyn - 10 days; midline to be placed prior to dc
Acute/Subacute CVA - Right temporal Lobe; Start plavix for 21 days total; Continue ASA. Statin; Neuro consulted; echo with no vegetation, carotid ultrasound with less than 50% stenosis. Thiamine.
Hyperkalemia -in the setting of suspected MIKE on CKD. Give a dose of Lokelma.
MIKE v CKD - ctm
DM2 with hyperglycemia - hemoglobin A1c: 9. cont insulin regimen; titrate as needed hemoglobin A1c outpatient follow-up
Normocytic anemia; Iron Deficiency Anemia; -unknown etiology or chronicity. Hemoglobin 8.8 today. Monitor for now. F/u outpt for egd, colonoscopy as required
Hypothyroidism -levothyroxine.
Dementia, unknown type
Obesity due to excess calories
full code
More than 30 minutes spent in discharge including
Final examination of the patient
Summarizing hospital stay
Instructions for continuing care to all relevant caregivers
Preparation of discharge records, prescriptions, and referral forms
Total time spent (37 in minutes):
Anticipated Discharge: Today
Subjective/Interval History
-
Date of Service: July 19, 2024
No acute events overnight
Objective Data
-
Labs:
Laboratory Results
07/19/24 07/19/24
08:55 09:41
WBC 8.2
Hgb 8.8 L
Hct 27.0 L
Plt Count 291 D
Sodium Cancelled 140
Potassium Cancelled 4.1
Chloride Cancelled 100
Carbon Dioxide Cancelled 33 H
BUN Cancelled 23 H
Creatinine Cancelled 1.6 H
Glucose Cancelled 143 H
Calcium Cancelled 8.6
Total Bilirubin Cancelled 0.5
AST Cancelled 13 L
ALT Cancelled < 10
Alkaline Phosphatase Cancelled 77
Vital Signs:
Vital Signs
Temp Pulse Resp BP Pulse Ox
98.0 F 51 18 129/50 100
07/19/24 07:45 07/19/24 07:45 07/19/24 07:45 07/19/24 07:45 07/19/24 07:45
I&O
07/18/24 07/19/24 07/20/24
06:59 06:59 06:59
Intake Total 1140 / 1140 1290 / 1290
Balance 1140 / 1140 1290 / 1290
Review of Systems
-
History Source: Patient
All other systems: Not reviewed unless documented
Data Reviewed
-
Diagnostic Radiology: Report Reviewed by me
CT Scan: Report Reviewed by me
MRI: Report Reviewed by me
Medical Tests (Nuc Med, Echo etc): Image personally visualized and interpreted
Labs: Labs Reviewed by me
[2024-07-19] MEDS: NOVOLOG FLEXPEN-LOW RESISTANCE 3 UNITS SC (13:01)
[2024-07-19] MEDS: LYRICA 100 MG PO (13:04)
--- NOTE | 2024-07-19 14:00 | W.PN.NEURO.1 ---
Today's Communication / Plan
-
.
Subjective/Objective
Subjective Data
Date of Service: July 19, 2024
Neurology Consultation Note.
Mr. Hung endorses pain in his legs. He is unable to provide more details.
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
Carotid ultrasound�no hemodynamically significant stenosis
TTE-Interatrial septum is intact with no evidence of shunting by color flow Doppler. No intracardiac mass or thrombus formation seen.
Labs: Hemoglobin A1c�9.0, LDL�54, Vitamin B12�244
PMH:dementia, paranoid schizophrenia?, hypothyroidism, DM, BPH, vitamin D deficiency, OA
PSH: Bilateral knee replacement
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
FH: Not contributory to current presentation
All: Morphine, nitrofurantoin
ROS: Limited due to encephalopathy.
General: Well developed. In no acute distress.
Cardio: Regular rate and rhythm. Extremities are without cyanosis or edema.
Neuro:
Mental Status: Alert, oriented to name, not the place, age (close), location, time. Follows simple requests, nonfluent. Poor attention and comprehension.
Cranial Nerves: Pupils are equally round and reactive to light. EOMs full. Visual del angel full to confrontation. Mild right ptosis. No nystagmus. Face symmetric. Impaired hearing AU. The palate elevated well. SCMs and traps 5/5. Tongue
midline. No dysarthria.
Motor: No pronator drift. Moves lower extremities within bed plane symmetrically upon request.
Reflexes: Bilateral grasp, no clonus at the ankles.
Sensory: Limited due to attention.
Coordination: No tremors, clonic movements
Gait: deferred
Assessment and Plan:
I. Acute/subacute right MCA territory punctuate infarct. Likely etiology�embolic.
II. Vascular/infectious/neurodegenerative encephalopathy
III. Diabetes mellitus, uncontrolled
IV. Probable polyneuropathy.
-Continue Telemetry monitoring.
-ASA 81 mg QD indefinitely.
-Plavix 75 mg QD for 21 days.
-Optimize glycemic control
-Start parenteral cyanocobalamin
-PT.
-Outpatient Holter monitoring
-DVT prophylaxis.
-Outpatient neurology follow-up
I personally reviewed all radiology and labs along with past medical records pertinent to current medical problems. Total time spent in patient care is 36 minutes.
Thank you for allowing us to participate in the care of this patient. Please do not hesitate to contact us with any questions or concerns.
Objective Data
Vital Signs
Temp Pulse Resp BP Pulse Ox
36.7 C 51 18 129/50 100
07/19/24 07:45 07/19/24 07:45 07/19/24 07:45 07/19/24 07:45 07/19/24 07:45
Lab Results
07/19/24 08:55
07/19/24 09:41
PT 14.8 Sec (11.4-14.6) H 07/13/24 05:11
INR 1.13 07/13/24 05:11
APTT 40.0 Sec (23.4-35.0) H 07/13/24 05:11
Sodium 140 mmol/L (135-145) 07/19/24 09:41
Potassium 4.1 mmol/L (3.5-5.1) 07/19/24 09:41
BUN 23 mg/dl (9-20) H 07/19/24 09:41
Glucose 143 mg/dl (70-99) H 07/19/24 09:41
Calcium 8.6 mg/dl (8.4-10.2) 07/19/24 09:41
Phosphorus 4.3 mg/dl (2.5-4.5) 07/13/24 04:05
LDL Cholesterol Direct Cancelled 07/17/24 12:09
Vitamin B12 244 pg/ml (718-183) 07/13/24 04:05
Patient Allergies
morphine Allergy (Verified 07/12/24 17:31)
Unknown
nitrofurantoin Allergy (Verified 07/12/24 17:31)
Unknown
Vital Signs and Labs
-
Vital Signs and Labs:
Vital Signs
Temp Pulse Resp BP Pulse Ox
36.7 C 51 18 129/50 100
07/19/24 07:45 07/19/24 07:45 07/19/24 07:45 07/19/24 07:45 07/19/24 07:45
Lab Results
07/19/24 08:55
07/19/24 09:41
PT 14.8 Sec (11.4-14.6) H 07/13/24 05:11
INR 1.13 07/13/24 05:11
APTT 40.0 Sec (23.4-35.0) H 07/13/24 05:11
Sodium 140 mmol/L (135-145) 07/19/24 09:41
Potassium 4.1 mmol/L (3.5-5.1) 07/19/24 09:41
BUN 23 mg/dl (9-20) H 07/19/24 09:41
Glucose 143 mg/dl (70-99) H 07/19/24 09:41
Calcium 8.6 mg/dl (8.4-10.2) 07/19/24 09:41
Phosphorus 4.3 mg/dl (2.5-4.5) 07/13/24 04:05
LDL Cholesterol Direct Cancelled 07/17/24 12:09
Vitamin B12 244 pg/ml (785-377) 07/13/24 04:05
Medications
-
Medications:
Generic Name Dose Route Start Last Admin
Trade Name Freq PRN Reason Stop Dose Admin
Acetaminophen 650 mg 07/12/24 21:51 07/15/24 00:23
Acetaminophen 325 Mg Tablet PO 08/09/24 21:50 650 mg
Q4H PRN Administration
pain/temp
Aspirin 81 mg 07/13/24 08:00 07/19/24 08:05
Aspirin 81 Mg Chewable Tablet PO 08/10/24 07:59 81 mg
DAILY EVAN Administration
Atorvastatin Calcium 40 mg 07/17/24 18:00 07/18/24 17:28
Atorvastatin (Lipitor) 40 Mg Tablet PO 08/14/24 17:59 40 mg
QPM EVAN Administration
Bisacodyl 10 mg 07/12/24 23:47
Bisacodyl 10 Mg Rectal Suppository RECTAL 08/09/24 23:46
PRN PRN
no BM for 5 days
Calcium Carbonate 500 mg 07/13/24 08:00 07/19/24 08:05
Calcium Carbonate 500 Mg Tablet PO 08/10/24 07:59 500 mg
DAILY EVAN Administration
Clopidogrel Bisulfate 75 mg 07/17/24 12:00 07/19/24 08:06
Clopidogrel 75 Mg Tablet PO 08/14/24 11:59 75 mg
DAILY EVAN Administration
Marshall Butter/Zinc Oxide 1 each 07/15/24 20:00 07/19/24 08:22
Marshall Butter/Zinc Oxide (Calmol 4) Suppository RECTAL 08/12/24 19:59 1 each
BID EVAN Administration
Cyanocobalamin 1,000 mcg 07/13/24 13:00 07/19/24 08:06
Cyanocobalamin 1,000 Mcg Tablet PO 08/10/24 12:59 1,000 mcg
DAILY EVAN Administration
Dextrose 12.5 grams 07/13/24 23:00
Dextrose 50% (0.5 Grams/Ml) 50 Ml Syringe IV 08/10/24 22:59
[id number] PRN
hypoglycemia
Protocol
Dextrose 12.5 grams 07/13/24 01:04
Dextrose 50% (0.5 Grams/Ml) 50 Ml Syringe IV 08/10/24 01:03
[id number] PRN
hypoglycemia
Protocol
Donepezil HCl 10 mg 07/12/24 22:00 07/18/24 21:26
Donepezil Hcl 10 Mg Tablet PO 08/09/24 21:59 10 mg
HS EVAN Administration
Duloxetine HCl 60 mg 07/13/24 08:00 07/19/24 08:06
Duloxetine Delayed Release 60 Mg Capsule PO 08/10/24 07:59 60 mg
DAILY EVAN Administration
Ergocalciferol 50,000 units 07/13/24 01:00
Ergocalciferol (Vitamin D-2) 13105 Units Capsule PO 08/10/24 00:59
.SUNDAY HS EVAN
Glucagon 1 mg 07/13/24 01:04
Glucagon 1 Mg Vial IM 08/10/24 01:03
PRN PRN
hypoglycemia
Protocol
Heparin Sodium 5,000 units 07/13/24 08:00 07/19/24 08:06
Heparin 5,000 Units/Ml 1 Ml Vial SC 08/10/24 07:59 5,000 units
Q12 EVAN Administration
Insulin Glargine 12 units/ 0.12 mls @ 0 mls/hr 07/13/24 08:00 07/19/24 09:27
Device SC 08/10/24 07:59 0.12 mls
DAILY EVAN Administration
As Directed
Piperacillin Sod/Tazobactam Sod 4.5 gram in 100 mls @ 200 mls/hr 07/15/24 10:00 07/19/24 09:58
Zosyn IV 07/24/24 22:29 100 mls
Q6H EVAN Administration
Insulin Aspart 0 units 07/13/24 08:00 07/19/24 13:01
Insulin Aspart Low Resistance 300 Units/3 Ml Pen.Injctr SC 08/10/24 07:59 3 units
AC EVAN Administration
Protocol
Insulin Aspart 5 units 07/19/24 13:04
Insulin Aspart (100 Units/Ml) 3 Ml Flexpen SC 08/10/24 07:59
AC EVAN
Levothyroxine Sodium 75 mcg 07/13/24 06:00 07/19/24 05:00
Levothyroxine 75 Mcg Tablet PO 08/10/24 05:59 75 mcg
DAILY@0600 EVAN Administration
Miconazole Nitrate 0 applic 07/16/24 08:00 07/19/24 09:28
Miconazole Powder Bottle TOPICAL 08/13/24 07:59 1 applic
BID EVAN Administration
Polyethylene Glycol 17 grams 07/13/24 08:00 07/19/24 08:07
Polyethylene Glycol Powder 17 Grams Packet PO 08/10/24 07:59 17 grams
DAILY EVAN Administration
Pregabalin 100 mg 07/15/24 12:00 07/19/24 13:04
Pregabalin 100 Mg Capsule PO 08/12/24 11:59 100 mg
DAILY@NOON EVAN Administration
Pregabalin 150 mg 07/13/24 08:00 07/19/24 08:06
Pregabalin 75 Mg Capsule PO 08/10/24 07:59 150 mg
BID EVAN Administration
Sodium Biphosphate/Sodium Phosphate 118 ml 07/12/24 21:51
Fleet Phosphate Enema (Adult) 135 Ml Bottle RECTAL 08/09/24 21:50
PRN PRN
no bm >6 days
Sodium Chloride 0 flush 07/12/24 23:00 07/16/24 10:30
Sodium Chloride 0.9% (Flush) Syringe IV 08/09/24 22:59 1 flush
PER PROTOCOL EVAN Administration
Tamsulosin HCl 0.4 mg 07/12/24 22:00 07/18/24 21:26
Tamsulosin 0.4 Mg Capsule PO 08/09/24 21:59 0.4 mg
HS EVAN Administration
Home Medications
-
Home Medications
acetaminophen 325 mg tablet 650 mg PO Q4H PRN pain/temp 07/12/24
aspirin 81 mg tablet 81 mg PO DAILY 07/12/24
bisacodyl 5 mg rectal suppository 1 mg AK PRN PRN no BM for 5 days 07/12/24
bismuth doth-kycajy-OkOv-resor rectal suppository 1 supp AK BID 07/12/24
calcium carbonate 600 mg PO DAILY 07/12/24
dextrose 40 % oral gel (Glucose Gel) 10 g PO Q15M PRN blood sugar <60 07/12/24
donepezil 10 mg tablet 10 mg PO HS 07/12/24
duloxetine 60 mg capsule,delayed release sprinkle 60 mg PO DAILY 07/12/24
ergocalciferol (vitamin D2) 50,000 unit tablet 50,000 unit PO .SUNDAY HS 07/12/24
glucagon 1 mg injection kit 1 mg IM PRN PRN blood sugar <60 07/12/24
insulin lispro 100 unit/mL subcutaneous pen (Admelog SoloStar U-100 Insulin lispro) 1 sliding scale dose SC DIRECTED 07/12/24
levothyroxine 75 mcg tablet 75 mcg PO DAILY 07/12/24
magnesium 200 mg tablet 400 mg PO DAILY 07/12/24
methenamine hippurate 1 gram tablet 1 g PO DAILY 07/12/24
polyethylene glycol 3350 17 gram oral powder packet 17 g PO DAILY 07/12/24
pregabalin 100 mg capsule (Lyrica) 100 mg PO .LUNCH 07/12/24
pregabalin 150 mg capsule (Lyrica) 150 mg PO BID 07/12/24
sodium phosphates 19 gram-7 gram/118 mL enema (Enema) 118 ml AK PRN PRN no bm >6 days 07/12/24
tamsulosin 0.4 mg capsule (Flomax) 0.4 mg PO HS 07/12/24
Insulin Glargine Lantus [Lantus] 12 units As Directed mls/hr SC DAILY 07/16/24
cyanocobalamin (vitamin B-12) 1,000 mcg tablet 1,000 mcg PO DAILY #0 tabs 07/16/24
miconazole nitrate 2 % topical powder (Miconazorb AF) 1 applic topical BID #85 grams 07/16/24
atorvastatin 40 mg tablet 40 mg PO QPM 30 days #0 tabs 07/18/24
clopidogrel 75 mg tablet 75 mg PO DAILY 20 days #0 tabs 07/18/24
insulin aspart U-100 100 unit/mL (3 mL) subcutaneous pen 3 unit (0.03 mL) SC AC #15 mL 07/18/24
piperacillin-tazobactam 4.5 gram/100 mL dextrose(iso-osm) IV piggyback (Zosyn) 4.5 g (112.5 mL) IV Q6H #0 mL 07/18/24
thiamine HCl (vitamin B1) 100 mg capsule 100 mg PO DAILY 30 days #30 caps 07/18/24
[2024-07-19] MEDS: CYANOCOBALAMIN 1000 MCG IM (15:51)
[2024-07-19 16:19] VITALS: BP 127/52
[2024-07-19 17:05] LABS: Glucose - Point of Care 200 mg/dl (70-99)
[2024-07-19] MEDS: NOVOLOG FLEXPEN-LOW RESISTANCE 2 UNITS SC (17:05)
[2024-07-19] MEDS: LIPITOR 40 MG PO (17:05)
[2024-07-19] MEDS: NOVOLOG FLEXPEN 5 UNITS SC (17:06)
[2024-07-19] MEDS: FLOMAX 0.4 MG PO (21:01)
[2024-07-19] MEDS: ARICEPT 10 MG PO (21:02)
[2024-07-19 23:00] VITALS: BP 116/48
[2024-07-19 23:19] LABS: Glucose - Point of Care 125 mg/dl (70-99)
[2024-07-20] MEDS: ZOSYN 100 IV ×2 (03:33→10:42)
[2024-07-20] MEDS: SYNTHROID 75 MCG PO (05:33)
[2024-07-20 07:25] VITALS: BP 144/55
[2024-07-20 07:39] LABS: Glucose - Point of Care 111 mg/dl (70-99)
--- NOTE | 2024-07-20 08:40 | CM ---
Addendum entered by Iesha Dodson 07/20/24 11:38:
GAY spoke with daughterYvonne, who spoke with Sarbjit and will be moving forward with patients discharge to [facility], daughter wants to confirm facility will provide therapy and has medications for patient. GAY spoke with Shabnam in admissions,
confirmed facility will have IV medications and will evaluate patient/provide therapy. Patient scheduled for 2:30 p.m. ambulance transport-per transport, will need to evaluate weather conditions and if unsafe may not be able to transport home.
Daughter aware of discharge time, provided with Shabnam at [facility] contact number if any questions.
Plan; return to [facility], 2:30 p.m. ambulance transport
Report: [phone]

Original Note:
GAY placed call to patients daughter, Yvonne STONER, to discuss determination of [employer] appeal, reviewer agrees with termination of services, liability starts 07/20/24 at noon today. Yvonne aware, right to request a reconsideration by contacting [facility]
[phone]. Yvonne aware otherwise will be responsible for cost for patient remain in hospital. Yvonne will call [facility] for reconsideration and will contact GAY.
Plan; [facility], will need ambulance transport when returning to [facility].
[2024-07-20] MEDS: NOVOLOG FLEXPEN-LOW RESISTANCE SC (10:00)
[2024-07-20] MEDS: FLUSH (NSS) 1 FLUSH IV (10:54)
[2024-07-20] MEDS: [UNRECOGNIZED DRUG - OTHER] 1 EACH RECTAL (10:55)
[2024-07-20] MEDS: NOVOLOG FLEXPEN 5 UNITS SC ×2 (10:56→12:15)
[2024-07-20] MEDS: MIRALAX PO (11:01)
[2024-07-20] MEDS: LYRICA 150 MG PO (11:03)
[2024-07-20] MEDS: LOW STRENGTH ASPIRIN 81 MG PO (11:07)
[2024-07-20] MEDS: HEPARIN 5000 UNITS SC (11:07)
[2024-07-20] MEDS: PLAVIX 75 MG PO (11:07)
[2024-07-20] MEDS: LANTUS 0.12 UNITS SC (11:10)
[2024-07-20] MEDS: DESENEX/MITRAZOL/ZEASORB 1 APPLIC TOPICAL (11:14)
[2024-07-20] MEDS: CYANOCOBALAMIN 1000 MCG IM (11:18)
[2024-07-20] MEDS: CYMBALTA DELAYED RELEASE 60 MG PO (11:18)
[2024-07-20] MEDS: OSCAL CAL 500 500 MG PO (11:18)
[2024-07-20 11:50] LABS: Glucose - Point of Care 208 mg/dl (70-99)
--- NOTE | 2024-07-20 12:01 | W.DS.TRANS ---
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
-
Discharge Instructions:
Discharge Diagnosis/Procedures Acute TME
Complicated UTI
Acute CVA
Diet Low Cholesterol,Low Fat,Diabetic, Carb
Controlled
Activity As tolerated
Blood Work cbc and cmp in 3-5 days with pcp; hgba1c in 3
months
Instructions:
Stand-Alone Forms:
Changes to Home Medications: Yes
Discharge Medications:
DC Medications w/original date entered in [facility]
acetaminophen 325 mg tablet 650 mg PO Q4H PRN pain/temp 07/12/24
aspirin 81 mg tablet 81 mg PO DAILY 07/12/24
bisacodyl 5 mg rectal suppository 1 mg MS PRN PRN no BM for 5 days 07/12/24
bismuth bxam-ubyqyd-UtTl-resor rectal suppository 1 supp MS BID 07/12/24
calcium carbonate 600 mg PO DAILY 07/12/24
dextrose 40 % oral gel (Glucose Gel) 10 g PO Q15M PRN blood sugar <60 07/12/24
donepezil 10 mg tablet 10 mg PO HS 07/12/24
duloxetine 60 mg capsule,delayed release sprinkle 60 mg PO DAILY 07/12/24
ergocalciferol (vitamin D2) 50,000 unit tablet 50,000 unit PO .SUNDAY HS 07/12/24
glucagon 1 mg injection kit 1 mg IM PRN PRN blood sugar <60 07/12/24
insulin lispro 100 unit/mL subcutaneous pen (Admelog SoloStar U-100 Insulin lispro) 1 sliding scale dose SC DIRECTED 07/12/24
levothyroxine 75 mcg tablet 75 mcg PO DAILY 07/12/24
magnesium 200 mg tablet 400 mg PO DAILY 07/12/24
methenamine hippurate 1 gram tablet 1 g PO DAILY 07/12/24
polyethylene glycol 3350 17 gram oral powder packet 17 g PO DAILY 07/12/24
pregabalin 100 mg capsule (Lyrica) 100 mg PO .LUNCH 07/12/24
pregabalin 150 mg capsule (Lyrica) 150 mg PO BID 07/12/24
sodium phosphates 19 gram-7 gram/118 mL enema (Enema) 118 ml MS PRN PRN no bm >6 days 07/12/24
tamsulosin 0.4 mg capsule (Flomax) 0.4 mg PO HS 07/12/24
Insulin Glargine Lantus [Lantus] 12 units As Directed mls/hr SC DAILY 07/16/24
cyanocobalamin (vitamin B-12) 1,000 mcg tablet 1,000 mcg PO DAILY #0 tabs 07/16/24
miconazole nitrate 2 % topical powder (Miconazorb AF) 1 applic topical BID #85 grams 07/16/24
atorvastatin 40 mg tablet 40 mg PO QPM 30 days #0 tabs 07/18/24
clopidogrel 75 mg tablet 75 mg PO DAILY 20 days #0 tabs 07/18/24
piperacillin-tazobactam 4.5 gram/100 mL dextrose(iso-osm) IV piggyback (Zosyn) 4.5 g (112.5 mL) IV Q6H #0 mL 07/18/24
thiamine HCl (vitamin B1) 100 mg capsule 100 mg PO DAILY 30 days #30 caps 07/18/24
insulin aspart U-100 100 unit/mL (3 mL) subcutaneous pen 5 unit (0.05 mL) SC AC #15 mL 07/20/24
Home Medication Changes
atorvastatin 40 mg tablet 40 mg PO QPM 30 days #0 tabs 07/18/24
clopidogrel 75 mg tablet 75 mg PO DAILY 20 days #0 tabs 07/18/24
piperacillin-tazobactam 4.5 gram/100 mL dextrose(iso-osm) IV piggyback (Zosyn) 4.5 g (112.5 mL) IV Q6H #0 mL 07/18/24
thiamine HCl (vitamin B1) 100 mg capsule 100 mg PO DAILY 30 days #30 caps 07/18/24
insulin aspart U-100 100 unit/mL (3 mL) subcutaneous pen 5 unit (0.05 mL) SC AC #15 mL 07/20/24
Pending Results: No
[2024-07-20] MEDS: NOVOLOG FLEXPEN-LOW RESISTANCE 2 UNITS SC (12:15)
[2024-07-20 13:49] VITALS: BP 138/59
[2024-07-20] MEDS: LYRICA 100 MG PO (14:10)
== END 2024-07-20 16:03 | DRG 689 ==
LOC: 4 WEST ACU 22:12
PROVIDERS: Hospitalist; Registered Nurse; ADMITTING PHYSICIAN Internal Medicine; ATTENDING PHYSICIAN Internal Medicine; CONSULT PHYSICIAN Psychiatry & Neurology Neurology; EMERGENCY PHYSICIAN Emergency Medicine; FAMILY PHYSICIAN Internal Medicine; OTHER PHYSICIAN Internal Medicine; OTHER PHYSICIAN Internal Medicine Infectious Disease
DX: N39.0 Urinary tract infection, site not specified (principal); G92.8 Other toxic encephalopathy; I63.9 Cerebral infarction, unspecified; F03.93 Unspecified dementia, unspecified severity, with mood disturbance; N17.9 Acute kidney failure, unspecified; Z16.12 Extended spectrum beta lactamase (ESBL) resistance; E11.65 Type 2 diabetes mellitus with hyperglycemia; N40.0 Benign prostatic hyperplasia without lower urinary tract symptoms; F32.A Depression, unspecified; E87.5 Hyperkalemia; D63.8 Anemia in other chronic diseases classified elsewhere; E66.09 Other obesity due to excess calories; D50.9 Iron deficiency anemia, unspecified; E03.9 Hypothyroidism, unspecified; E55.9 Vitamin D deficiency, unspecified; B96.5 Pseudomonas (aeruginosa) (mallei) (pseudomallei) as the cause of diseases classified elsewhere; B96.20 Unspecified Escherichia coli [E. coli] as the cause of diseases classified elsewhere; L89.151 Pressure ulcer of sacral region, stage 1; E11.42 Type 2 diabetes mellitus with diabetic polyneuropathy; M19.90 Unspecified osteoarthritis, unspecified site; D72.829 Elevated white blood cell count, unspecified; Z96.653 Presence of artificial knee joint, bilateral; Z87.440 Personal history of urinary (tract) infections; Z79.890 Hormone replacement therapy; Z79.4 Long term (current) use of insulin; Z79.84 Long term (current) use of oral hypoglycemic drugs; Z79.82 Long term (current) use of aspirin; Z88.3 Allergy status to other anti-infective agents; Z88.5 Allergy status to narcotic agent; Z86.73 Personal history of transient ischemic attack (TIA), and cerebral infarction without residual deficits; Z99.3 Dependence on wheelchair; Z68.34 Body mass index [BMI] 34.0-34.9, adult
CPT/HCPCS: 51701; 70450; 70551; 80053; 81003; 81015; 82607; 82728; 82746; 82962; 83036; 83540; 83550; 83605; 83721; 83735; 84100; 84443; 85014; 85018; 85025; 85027; 85045; 85610; 85730; 86803; 86850; 86900; 86901; 87040; 87077; 87086; 87186; 87340; 87389; 93005; 93306; 93880; 96361; 96365; 96375; 97163; 97167; 97530; 97535; 99285; Q9950

== ENCOUNTER 2024-08-20 22:00 | Inpatient (IN) | payer MEDICARE, OTHER, SELFPAY ==
[2024-08-20 18:35] VITALS: BP 139/70
[2024-08-20 19:00] VITALS: BP 147/60
[2024-08-20 19:05] LABS: Urine Albumin 3+ (Neg - Trace); Urine Bilirubin Negative (Negative); Urine Character Cloudy (Clear); Urine Color Yellow; Urine Glucose Negative (Negative); Urine Ketone Negative (Negative); Urine Leukocyte 3+ (Negative); Urine Nitrite Negative (Negative); Urine Occult Blood 4+ (Negative); Urine Specific Gravity 1.015 (<1.030); Urine Urobilinogen Negative (Neg - 1+)
--- NOTE | 2024-08-20 19:27 | ED.GENMED ---
History of Present Illness
General
Chief Complaint: Male Genito-Urinary Symptoms
Source: patient
Exam Limitations: altered mental status
Time Seen by Provider: 08/20/24 19:26
History of Present Illness
History of Present Illness:
See MDM
Past History
Past History
ED Past Medical History: HTN, Hypercholesterolemia and IDDM
ED Past Surgical History: Other (unknown)
Social History
Tobacco: Non-smoker
Alcohol: None
Phy Exam
Physical Exam
Physical Exam:
See MDM
Course
Orders/Labs/Results
Orders:
Orders
08/20/24 18:52
Urinalysis Reflex To Culture Urgent
Date Specimen was Collected: 08/20/24
Time Specimen was Collected: 18:51
Urine Microscopic Reflex Cult Urgent
Urine Culture Urgent
QIAN Source: U
Specimen Description:
Date Specimen was Collected: 08/20/24
Time Specimen was Collected: 18:51
08/20/24 19:39
Complete Blood Count/With Diff Urgent
Comprehensive Metabolic Panel Urgent
08/20/24 20:08
0.9% Sodium Chloride 1000 ml [Nss] 1,000 ml IV BOLUS
Meropenem [Merrem] 1,000 mg IV NOW STA
Abnormal Lab Results
08/20/24 08/20/24
18:52 19:39
WBC 12.3 H 10^3/uL
(4.8-10.8)
RBC 3.17 L 10^6/uL
(4.70-6.10)
Hgb 9.7 L g/dL
(13.0-18.0)
Hct 29.0 L %
(39.0-52.0)
RDW 16.4 H %
(11.5-14.5)
Abs Immat Gran (auto) 0.1 H 10^3/uL
(0-0.05)
Absolute Neuts (auto) 8.4 H 10^3/uL
(1.4-6.5)
Absolute Monos (auto) 1.6 H 10^3/uL
(0.1-0.6)
Lymphocytes % 17.6 L %
(20.5-51.1)
Monocytes % 12.7 H %
(1.7-9.3)
Sodium 133 L mmol/L
(135-145)
BUN 49 H mg/dl
(9-20)
Creatinine 2.6 H mg/dL
(0.7-1.3)
Glucose 216 H mg/dl
(70-99)
Ur Occult Blood Reflex 4+ A
(Negative)
Leukocyte Esterase Rfl 3+ A
(Negative)
Urine WBC (Reflex) 90-100 A /HPF
(0-5)
Urine Bacteria (Reflex) Few A
(Negative)
Urine Albumin (Reflex) 3+ A
(Neg - Trace)
08/20/24 19:39
08/20/24 19:39
Vital Signs
Initial and Last Documented VS:
Initial Vital Signs
Temp Pulse Resp BP Pulse Ox
98.6 F 85 16 139/70 92
08/20/24 18:35 08/20/24 18:35 08/20/24 18:35 08/20/24 18:35 08/20/24 18:35
Last Documented Vital Signs
Temp Pulse Resp BP Pulse Ox
98.6 F 85 16 139/70 92
08/20/24 18:35 08/20/24 18:35 08/20/24 18:35 08/20/24 18:35 08/20/24 18:35
MDM/Problems Addressed
Differential Diagnosis Includes:
HPI and MDM Narrative:
79-year-old male presenting for evaluation of altered mental status. Patient is sitting in bed comfortably and offers no complaint. However, patient has been more incontinent with foul-smelling urine. Apparently, there was a concern for UTI and
he had outpatient UA but results have not returned yet. Per nursing staff, family wanted him evaluated to get expedited results. On exam, he has soft and nontender abdomen. He does not appear to be clinically dehydrated. Abdomen soft and
nontender
Given his age and complaint, will obtain basic blood work to rule out any evidence of metabolic encephalopathy. Will obtain urinalysis and continue to reassess
Physical exam
General: Well appearing and non-toxic. Sitting in bed comfortably
HEENT: protecting airway
Neck: appears supple
CV: No evidence of cyanosis
Resp: No accessory muscle use
Abd: Non-distended. Soft and nontender
Extremities: No deformities
Neuro: alert. Pleasantly confused
Psych: Normal affect
Skin: Intact
Problems Addressed including Acute and Chronic Conditions affecting care:
1. Altered mental status
Acuity: acute
Prognosis: stable
Details: Given the increased urinary frequency and foul-smelling urine, will obtain urinalysis. Given age and complaint, will obtain basic blood work as well
2. MIKE
Acuity: acute
Prognosis: stable
Details: Likely in setting of poor p.o. intake. Will start IV fluid
3. UTI
Acuity: acute
Prognosis: stable
Details: Based on prior ESBL, will start meropenem
Updates
Urine concerning for UTI. 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 Will start meropenem. Creatinine did increase. Will start IV fluid
Differential Diagnosis (but not limited to): Urinary tract infection, hyponatremia, dehydration
Testing considered: CT head but he has no focal deficits
Drug therapy (if applicable): OTC meds, please see d/c instruction regarding Rx drugs
Amount and/or Complexity of Data Reviewed
Clinical info obtained from: Patient
External data reviewed: N/A
Labs I independently reviewed (but not limited to): Elevated creatinine, urinalysis
Radiology: N/A
Pulse Ox: not hypoxic
EKG independently reviewed: N/A
Cutter Operator Brick: N/A
Critical Care: N/A
Risk of Complication:
Social Determinants of health: Good social support
Discussed with other providers: Hospitalist
Escalation of Care includes Admit/Obs: Given UTI in setting of prior ESBL, will start IV antibiotics and admit
Occasional wrong word or 'sound a like' substitutions may have occurred due to the inherent limitations of voice recognition software. Read the chart carefully and recognize, using context, where substitutions have occurred.
*Critical Care Note
Total Time (30-74mins, 75-104mins- exclusive of procedures): Not Applicable
ED Attending Note
-
Portions of this chart may have been created with voice recognition software.� Occasional wrong word or��sound alike� substitutions may have occurred due to the inherent limitations of voice recognition software.
Discharge Plan
Departure
Patient Disposition: Admit
Date of Disposition: 08/20/24
Time of Disposition: 20:13
Admit to: Med/Surg
Presentation/result/management discussed w/ accepting MD/DO: Hospitalist
Discharge Problem:
Acute UTI (urinary tract infection), MIKE (acute kidney injury)
Prescriptions:
No Action
glucagon 1 mg Kit
1 mg IM PRN PRN (Reason: blood sugar <60)
acetaminophen 325 mg Tablet
650 mg PO Q4H PRN (Reason: pain/temp)
bisacodyl 5 mg Suppository
1 mg MO PRN PRN (Reason: no BM for 5 days)
polyethylene glycol 3350 17 gram Powder In Packet
17 g PO DAILY
donepezil 10 mg Tablet
10 mg PO HS
dextrose [Glucose Gel] 40 % Gel
10 g PO Q15M PRN (Reason: blood sugar <60)
ergocalciferol (vitamin D2) 50,000 unit Tablet
50,000 unit PO .SUNDAY HS
levothyroxine 75 mcg Tablet
75 mcg PO DAILY
calcium carbonate 600 mg calcium (1,500 mg) Tablet
600 mg PO DAILY
methenamine hippurate 1 gram Tablet
1 g PO DAILY
tamsulosin [Flomax] 0.4 mg Capsule
0.4 mg PO HS
Enema 19-7 gram/118 mL Enema
118 ml MO PRN PRN (Reason: no bm >6 days)
aspirin 81 mg Tablet
81 mg PO DAILY
magnesium 200 mg Tablet
400 mg PO DAILY
insulin lispro [Admelog SoloStar U-100 Insulin] 100 unit/mL Insulin Pen
1 sliding scale dose SC DIRECTED
Rx Instructions:
201-250- 2 units
251-300-4 units
301-350- 6 units
351-400- 8 units
401-450- 10 units
<60 or >500 call MD
bismuth dfta-eptomk-LvEd-resor Suppository
1 supp MO BID
pregabalin [Lyrica] 100 mg Capsule
100 mg PO .LUNCH
pregabalin [Lyrica] 150 mg Capsule
150 mg PO BID
duloxetine 60 mg Capsule, Delayed Rel Sprinkle
60 mg PO DAILY
miconazole nitrate [Miconazorb AF] 2 % Powder
1 applic topical BID Qty: 85 0RF
cyanocobalamin (vitamin B-12) 1,000 mcg Tablet
1,000 mcg PO DAILY Qty: 0 0RF
Insulin Glargine Lantus [Lantus] 12 UNITS
Subcutaneous Insulin Syringe [Syringe-Insulin] 0 UNIT
As Directed mls/hr SC DAILY
Ordered By: Rene Lucero MD
Last Taken: Unknown
atorvastatin 40 mg Tablet
40 mg PO QPM 30 Days Qty: 0 0RF
clopidogrel 75 mg Tablet
75 mg PO DAILY 20 Days Qty: 0 0RF
thiamine HCl (vitamin B1) 100 mg capsule
100 mg PO DAILY 30 Days Qty: 30 0RF
Zosyn in dextrose (iso-osm) 4.5 gram/100 mL Piggyback
4.5 g IV Q6H Qty: 0 0RF
insulin aspart U-100 100 unit/mL (3 mL) Insulin Pen
5 unit SC AC Qty: 15 0RF
Referrals:
Ese Bo CRNP [Family Provider] -
Interventions
Interventions:
*Risk Screen - Suicide Last Done: 08/20/24 18:35
*General Assessment Last Done: 08/20/24 18:35
*Neglect/Abuse Screening Last Done: 08/20/24 18:35
ED- Fall Risk Assessment Last Done: 08/20/24 19:41
*ED COVID-19 Vaccine History Last Done: 08/20/24 19:03
ED-Male Genitourinary Assessment Last Done: 08/20/24 19:41
Discharge Date and Time
Print Language: ISRAELI
[2024-08-20 19:38] LABS: Urine Red Blood Cell 0-2 /HPF (0-2); Urine Squamous Cell 0-2 /LPF (Few)
[2024-08-20 19:39] LABS: Urine Bacteria Few (Negative); Urine White Cell 90-100 /HPF (0-5)
[2024-08-20 19:59] LABS: % Basophils 0.6 % (0-2); % Eosinophils 0.8 % (0-6); % Immature Granulocytes 0.4 % (0-0.5); % Lymphocytes 17.6 % (20.5-51.1); % Monocytes 12.7 % (1.7-9.3); % Neutrophils 67.9 % (42.2-75.2); Absolute Basophils 0.1 10^3/uL (0-0.2); Absolute Eosinophils 0.1 10^3/uL (0-0.7); Absolute Immature Granulocytes 0.1 10^3/uL (0-0.05); Absolute Lymphocytes 2.2 10^3/uL (1.2-3.4); Absolute Monocytes 1.6 10^3/uL (0.1-0.6); Absolute Neutrophils 8.4 10^3/uL (1.4-6.5); Hemoglobin 9.7 g/dL (13.0-18.0); Mean Corp Hgb Conc. 33.4 g/dL (33.0-37.0); Mean Corpuscular Hgb 30.6 pg (27.0-31.0); Mean Corpuscular Volume 91.5 fL (80.0-94.0); Mean Platelet Volume 9.9 fL (7.4-10.4); Nucleated Red Blood Cells % 0 % (-); Platelet Count 313 10^3/uL (130-400); Red Blood Cell Count 3.17 10^6/uL (4.70-6.10); Red Cell Dist. Width 16.4 % (11.5-14.5); White Blood Cell Count 12.3 10^3/uL (4.8-10.8)
[2024-08-20 20:00] VITALS: BP 127/62
[2024-08-20 20:05] LABS: ALT (SGPT) 11 U/L (0-50); AST (SGOT) 23 U/L (17-59); Albumin 3.6 g/dl (3.5-5.0); Alkaline Phosphatase 100 U/L (38-126); Blood Urea Nitrogen 49 mg/dl (9-20); Calcium 8.4 mg/dl (8.4-10.2); Carbon Dioxide 23 mmol/L (22-30); Chloride 98 mmol/L (98-107); Glucose 216 mg/dl (70-99); Sodium 133 mmol/L (135-145); Total Bilirubin 0.8 mg/dl (0.2-1.3); Total Protein 7.2 g/dl (6.3-8.2); eGFR 24.17
[2024-08-20] MEDS: MERREM 1000 MG IV (20:18)
[2024-08-20] MEDS: NSS 1000 IV ×2 (20:19→23:38)
--- NOTE | 2024-08-20 20:20 | HPS.HSE ---
Family Physician
-
Family Physician: YESSI Blackman
Chief Complaint
-
change in mental status
History of Present Illness
Patient is a 79-year-old male with past medical history significant for IDDM, dementia, depression, hypothyroidism, BPH and Hx CVA/chronic who presented to [facility] ED for evaluation of change in mental status. Patient oriented to self at
assessment. Information for HPI obtained from ED documentation. Patient facility/family reported patient with increased episodes of incontinence with foul-smelling urine. Facility obtained UA and results have not been received patient sent to ED by
family request for expedited workup.
Medical History
Past Medical History
Past Medical History: Reports Other
Additional Past Medical History:
IDDM
dementia
depression
hypothyroidism
BPH
Hx CVA/chronic --incidentally noted on HCT
Past Surgical History: Reports Other
Additional Past Surgical History:
unable to obtain
Social History
Unable to obtain full social history at this time due to: Dementia (patient with altered mental status )
Family History
Family History: Unable to Obtain
Allergies / Home Medications
Allergies reflects when Allergies were last updated in [employer].
Home Medications with original date entered in [employer]
Allergy/Medication List:
Allergies
Allergy/AdvReac Type Severity Reaction Status Date / Time
morphine Allergy Unknown Verified 08/20/24 18:51
nitrofurantoin Allergy Unknown Verified 08/20/24 18:51
Home Medications
acetaminophen 325 mg tablet 650 mg PO Q4HPRN PRN mild pain/temp>100 07/12/24
calcium carbonate 600 mg PO DAILY 07/12/24
donepezil 10 mg tablet 10 mg PO HS 07/12/24
duloxetine 60 mg capsule,delayed release sprinkle 60 mg PO DAILY 07/12/24
insulin lispro 100 unit/mL subcutaneous pen (Admelog SoloStar U-100 Insulin lispro) 1 sliding scale dose SC AC 07/12/24
levothyroxine 75 mcg tablet 75 mcg PO DAILY 07/12/24
methenamine hippurate 1 gram tablet 1 g PO DAILY 07/12/24
polyethylene glycol 3350 17 gram oral powder packet 17 g PO DAILY 07/12/24
pregabalin 100 mg capsule (Lyrica) 100 mg PO NOON 07/12/24
pregabalin 150 mg capsule (Lyrica) 150 mg PO BID 07/12/24
tamsulosin 0.4 mg capsule (Flomax) 0.4 mg PO HS 07/12/24
cyanocobalamin (vitamin B-12) 1,000 mcg tablet 1,000 mcg PO DAILY #0 tabs 07/16/24
insulin aspart U-100 100 unit/mL (3 mL) subcutaneous pen 5 unit (0.05 mL) SC AC #15 mL 07/20/24
aspirin 81 mg chewable tablet 81 mg PO DAILY 08/20/24
atorvastatin 40 mg tablet 40 mg PO DAILY 08/20/24
ergocalciferol (vitamin D2) 1,250 mcg (50,000 unit) capsule 1,250 mcg PO FR 08/20/24
insulin glargine 100 unit/mL subcutaneous solution 12 unit SC DAILY 08/20/24
magnesium oxide 400 mg PO DAILY 08/20/24
memantine 10 mg tablet 10 mg PO BID 08/20/24
Review of Systems
-
Unable to obtain full review of systems at this time due to: Dementia
Physical Exam
Vital Signs
Vital Signs
Temp Pulse Resp BP Pulse Ox
98.6 F 85 16 139/70 92
08/20/24 18:35 08/20/24 18:35 08/20/24 18:35 08/20/24 18:35 08/20/24 18:35
Physical Exam
General: Well Developed, Well Nourished, No Apparent Distress, Comfortable, Conversant and Morbidly Obese
HEENT: NormoCephalic, Moist mucous membranes, Atraumatic, [place] Conjunctivae, Nose Appears Normal and Ears Appear Normal
Respiratory: Clear, Non Labored Respirations and Decreased Breath Sounds
Cardiac: S1/S2 and Regular Rhythm; No Murmur, Rub or Gallop
Breast: Deferred by me
GI: Soft, Non Tender and Normal Bowel Sounds; No Organomegaly
Rectal: Deferred by Provider
Genito-urinary: Deferred by me
Musculoskeletal: No Clubbing, No Cyanosis, Edema, Left Lower Extremity (trace ) and Edema, Right Lower Extremity (trace)
Skin: Warm and IV/Catheter Site; No Rash
Neuro: Awake, Alert, Oriented (to self only ) and Nonfocal/grossly intact
Psych: Calm
Laboratory Results
-
08/20/24 19:39
08/20/24 19:39
Laboratory Results
Total Bilirubin 0.8 mg/dl (0.2-1.3) 08/20/24 19:39
AST 23 U/L (17-59) 08/20/24 19:39
ALT 11 U/L (0-50) 08/20/24 19:39
Alkaline Phosphatase 100 U/L (38-126) 08/20/24 19:39
Data Reviewed
-
Lab Data: Labs Reviewed by me (WBC 12.3, BUN 49, Creat 2.6)
Impression/Plan
-
IMPRESSION/PLAN:
#change in mental status
patient AAox3 at baseline, at assessment AAO to self only
recent Hx CVA
- admit to med/surg
- Head CT
- Chest/Abd/Pelvis CT
- Procal
- consult PT/OT
#UTI
UA: indicative of UTI
Urine Cx: pending
Hx ESBL
- continue Meropenem
- bladder scan/straight cath
- ID consult
#MIKE
BUN 49, Creat 2.6
- IVF NSS 100cc/hr
- monitor BMP
#IDDM
- AccuCheck AC & HS
- SSI
- continue home insulin regimen
#dementia
#depression
- continue donepezil, duloxetine and memantine
#hypothyroidism
- continue levothyroxine
#BPH
- continue tamsulosin
#Hx CVA/chronic --incidentally noted on HCT
- continue aspirin and atorvastatin
Code Status: Full code
DVT Prophylaxis: Heparin Sq
--- NOTE | 2024-08-20 20:47 | W.PN.UPDATE ---
Update Note
Progress Note Update
Patient seen in conjunction with INSTRUCTOR KINDERGARTEN. I agree with the findings on history and physical. I concur with the assessment and plan.
This is an 79-year-old with past medical history significant for dementia, hypothyroid, diabetes, hyperlipidemia recent admission for UTI with toxic and metabolic encephalopathy with hospital course complicated by acute CVA treated with aspirin
Plavix x 21 days and ultimately discharged to SNF will come from SNF with altered mental status. Prior records as patient is unable to provide history, he was transferred to the hospital to expedite workup for his altered mental status. There has
been concern that he has an ongoing urinary tract infection and he had an outpatient UA but results are pending. Apparently has had foul-smelling urine and he has been more incontinent. Patient has no other complaints. He has not been any
demonstrated fevers. He denies any chills. He denies any cough or shortness of breath. Patient denies any abdominal pain nausea or vomiting. No known history of aspiration.
Initial evaluation in the emergency department shows that he is afebrile, he was satting 95% on room air although slightly tachypneic at around 20, blood pressure was 140/77 and pulse rate was 85. He had leukocytosis of 12.3 hemoglobin was 9.7 and
platelet was 300 which is similar to his baseline. He has a rising creatinine from 1.5-2.6 otherwise his electrolytes were normal. UA was positive for leukocyte esterase and WBCs negative for nitrites and has a few bacteria. Similar to previous
admission.
Suspicion is for recurrent episode of toxic metabolic encephalopathy with recurrent urinary tract infection likely secondary to either urinary incontinence or urinary retention. Cannot rule out kidney stone. Given history of stroke and dementia he
is prone to these encephalopathy episodes from infection. However we cannot rule out recurrent stroke. Patient also has tachypnea but could not complain of any shortness of breath.
Will admit to [facility] for evaluation of altered mental status likely due to toxic metabolic encephalopathy from infection.
- urine cultures sent and pending
- check procal
- check blood cultures if spike
- for now continue IV meropenem, hold methenamine
- additional infectious w/u with CT chest to rule out pneumonia, if pneumonia, will change to zosyn
- given recurrent uti, will evaluate with CT abd/pelvis to rule stone and bladder outlet obstruction
- bladder scan protocol, continue tamsulosin
- ID consultation
MIKE - BUN /Cr~ 20. Elevated Cr to 2.6 from 1.5. Looks dehydratd
- rule out obstruction with CT a/p
- b/s
- IV fluids for now
AMS
- given h/o stroke, will obtain repeat head CT
- continue aspirin/statin
- continue his home medications of memantine and donepizil
- continue levothyroxine
DM II
- continue lantus 10 daily
- sliding scale insulin
DVT PPX - heparin sq
Code status - Full Code
[2024-08-20 21:00] VITALS: BP 134/60
[2024-08-20 22:02] LABS: Procalcitonin 0.15 ng/ml (0.0-0.25)
[2024-08-20 23:00] VITALS: BP 104/74
[2024-08-20 23:23] VITALS: BMI 33.7
[2024-08-20 23:23] LABS: Glucose - Point of Care 199 mg/dl (70-99)
[2024-08-20] MEDS: ARICEPT 10 MG PO (23:38)
[2024-08-20] MEDS: FLOMAX 0.4 MG PO (23:38)
[2024-08-20] MEDS: HEPARIN 5000 UNITS SC (23:38)
--- NOTE | 2024-08-21 01:20 | PTCARENOTE ---
Rec'd pt. from ED into room 2127 oriented to self only but pleasant and able to answer simple questions (aware he is in hospital, not sure which one). 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 Admission completed and pt. oriented to
room. IVF's started per order, pt. heavily incontinent of cloudy yellow urine, ted care provided & #25 condom catheter placed. MASD/fungal rash assessed lower abd folds/groin, Desenex powder ordered per protocol. Bed alarm placed/fall
precautions initiated (pt. states he is non-ambulatory at residential - not sure of reliability due to mental status). Currently resting quietly.
[2024-08-21 03:26] VITALS: BP 136/60
[2024-08-21] MEDS: MERREM 500 MG IV ×3 (03:32→20:55)
[2024-08-21] MEDS: STERILE WATER FOR INJECTION 10 ML IV ×3 (03:33→20:55)
[2024-08-21] MEDS: SYNTHROID 75 MCG PO (05:22)
[2024-08-21 06:41] LABS: Hematocrit 28.5 % (39.0-52.0); Hemoglobin 9.1 g/dL (13.0-18.0); Mean Corp Hgb Conc. 31.9 g/dL (33.0-37.0); Mean Corpuscular Hgb 29.7 pg (27.0-31.0); Mean Corpuscular Volume 93.1 fL (80.0-94.0); Mean Platelet Volume 9.9 fL (7.4-10.4); Platelet Count 299 10^3/uL (130-400); Red Blood Cell Count 3.06 10^6/uL (4.70-6.10); Red Cell Dist. Width 16.6 % (11.5-14.5); White Blood Cell Count 11.6 10^3/uL (4.8-10.8)
[2024-08-21 06:46] LABS: Blood Urea Nitrogen 44 mg/dl (9-20); Calcium 7.8 mg/dl (8.4-10.2); Carbon Dioxide 22 mmol/L (22-30); Chloride 103 mmol/L (98-107); Estimated Creatinine Clearance 33 ml/min; Glucose 181 mg/dl (70-99); Potassium 4.8 mmol/L (3.5-5.1); Sodium 137 mmol/L (135-145)
[2024-08-21 07:37] VITALS: BP 139/66
[2024-08-21 07:45] LABS: Glucose - Point of Care 216 mg/dl (70-99)
[2024-08-21] MEDS: NAMENDA 10 MG PO ×2 (08:39→20:58)
[2024-08-21] MEDS: HEPARIN 5000 UNITS SC ×2 (08:39→16:16)
[2024-08-21] MEDS: MAG-TAB SR 84 MG PO (08:42)
[2024-08-21] MEDS: CYMBALTA DELAYED RELEASE 60 MG PO (08:42)
[2024-08-21] MEDS: LIPITOR 40 MG PO (08:42)
[2024-08-21] MEDS: OSCAL CAL 500 500 MG PO (08:42)
[2024-08-21] MEDS: LYRICA 150 MG PO ×2 (08:42→20:54)
[2024-08-21] MEDS: LOW STRENGTH ASPIRIN 81 MG PO (08:42)
[2024-08-21] MEDS: VITAMIN B-12 1000 MCG PO (08:42)
[2024-08-21] MEDS: MIRALAX 17 GRAMS PO (08:43)
[2024-08-21] MEDS: DESENEX/MITRAZOL/ZEASORB 1 APPLIC TOPICAL ×2 (08:43→20:55)
[2024-08-21] MEDS: LANTUS 0.12 UNITS SC (08:55)
[2024-08-21 09:08] LABS: Glycohemoglobin (HgbA1c) 7.8 % (4.0-5.6)
[2024-08-21] MEDS: NOVOLOG FLEXPEN 5 UNITS SC ×3 (09:23→17:53)
[2024-08-21] MEDS: NOVOLOG FLEXPEN-LOW RESISTANCE 2 UNITS SC ×3 (09:23→17:52)
[2024-08-21 09:30] VITALS: BP 139/62; PULSE 82; O2SAT 92
[2024-08-21] MEDS: NSS 1000 IV ×2 (09:50→20:54)
--- NOTE | 2024-08-21 10:00 | W.PN.HOSP.TC ---
Addendum entered and electronically signed by Vitaly Caballero MD 08/21/24 23:26:
Attending Addendum-
I saw and evaluated the patient. I reviewed the resident�s note and agree with findings and plan as documented in the resident�s note. Sub: More alert less confused no complaints. Seen with daughter present. 'hes much better today' doesn't allow
patient to talk. Full 12 point ROS reviewed and negative except as documented Exam: Vitals reviewed in chart GEN-NAD heart RRR lungs clear abd soft LE no edema AAO x [address] draining clear yellow urine
Plan:
#TME
-mentation returning back to baseline
-secondary to sepsis
-Procal- neg
-consult PT/OT
#Sepsis secondary to UTI
-Urine Cx: pending reviewed previous cx
-Hx ESBL
-continue Meropenem
-wbc trending down
-cont IVF
-check blood cx
-ID consult
#MIKE on CKD 3b
-baseline @ 1.5
-improving
-cont IVF
-check renal US
-monitor BMP
#IDDM
- AccuCheck AC & HS
- SSI
- hba1c- 7.8
- continue home insulin regimen L12 N5ac
# DM PN
- cont gabapentin
#dementia
#depression
- continue donepezil, duloxetine and memantine
#hypothyroidism
- continue levothyroxine
#BPH
- continue tamsulosin
#Hx recent CVA 07/26
- continue aspirin and atorvastatin
- should have completed plavix x 21 days
Code Status: Full code d/w POA
DVT Prophylaxis: Heparin Sq
ACP
Patient consented to discuss, was with daughter, time spent explanation of advance directives, changes in health status, patient�s health care wishes if the patient becomes unable to make health decisions, goals of care, code status, and prognosis
'oh hell yeah hes a fighter he can get through anything right dad?'- 16 minutes
Time spent coordinating care, review of plan of care with resident, personally reviewed previous records in EMR, med rec, labs, radiology, d/w nursing, family total time documented is exclusive of any additional time listed that was spent in advance
care planning discussion -�55 minutes
Original Note:
Today's Communication/Plan
-
Continue IV antibiotics and IV fluids for now
Pending ID eval
Assessment / Plan
Assessment / Plan
79-year-old with past medical history significant for dementia, hypothyroid, diabetes, hyperlipidemia recent admission for UTI with toxic and metabolic encephalopathy with hospital course complicated by acute CVA treated with aspirin Plavix x 21
days and ultimately discharged to SNF, Presented with Altered mental status.
CT abdomen pelvis 08/20/2024 IMPRESSION: Evaluation of the lungs is limited because of significant respiratory motion artifact. Possible groundglass opacities within both lungs, and suggests the possibility of interstitial/ground glass pneumonitis.
Consideration for follow-up chest radiography.
Moderate elevation right hemidiaphragm.
Coronary artery calcifications are present. Please correlate with symptoms of and risk factors for coronary artery disease, with further workup as clinically appropriate.
Thickening of the wall the urinary bladder, especially anteriorly and anterolaterally, and suggests the possibility of cystitis.
Moderate bilateral ureteral and pelvicalyceal dilation, which extends to the ureterovesical junction bilaterally with no evidence for calculus. Etiology for this dilation is uncertain. The bladder does not appear to be significantly distended, but
consideration could be given to decompression of the bladder with Degroot catheter.
Cholelithiasis. No CT findings that would be considered highly suspicious for acute cholecystitis.
Moderate amount of stool throughout the colon, suggesting a degree constipation. Moderate distention of the rectum with stool with no findings to suggest stercoral colitis.
#Toxic metabolic encephalopathy likely secondary to acute UTI/cystitis
--Procal within normal limits
--Urine culture still pending
--Check blood culture
--Continue IV meropenem for now pending ID eval
--CT abdomen/pelvis as above
--Continue IV fluids for now
#MIKE on CKD
-- Likely due to dehydration
-- Creatinine 2.6 on arrival.(Baseline being 1.5)
-- Repeat creatinine trending down 2.3
-- CT abdomen pelvis did not show any obstruction; report as above
-- Continue IV fluids for now
# Altered mental status
-- given h/o recent stroke; repeat CT head was obtained; did not show any acute intracranial abnormality
-- continue aspirin/statin
-- continue his home medications of memantine and donepizil
- continue levothyroxine
#cough
-- speech eval
# Diabetes type II
-- continue lantus 12 daily
-- sliding scale insulin
# Hypothyroidism
--Continue levothyroxine 75 mcg home dose
# Dementia
--Continue donepezil and memantine
# BPH
--Continue tamsulosin
DVT PPX - heparin sq
Code status - Full Code
Anticipated Discharge: 24 - 48 hours
Subjective/Interval History
-
Date of Service: August 21, 2024
Reports no pain. Confused.
Objective Data
-
Labs:
Laboratory Results
08/21/24
05:29
WBC 11.6 H
Hgb 9.1 L
Hct 28.5 L
Plt Count 299
Sodium 137
Potassium 4.8
Chloride 103
Carbon Dioxide 22
BUN 44 H
Creatinine 2.3 H
Glucose 181 H
Calcium 7.8 L
Vital Signs:
Vital Signs
Temp Pulse Resp BP Pulse Ox
99.7 F 89 18 139/66 94
08/21/24 07:37 08/21/24 07:37 08/21/24 07:37 08/21/24 07:37 08/21/24 09:40
I&O
08/20/24 08/21/24 08/22/24
06:59 06:59 06:59
Intake Total 700 / 700
Output Total 525 / 525
Balance 175 / 175
Review of Systems
-
Unable to obtain full review of systems at this time due to: Dementia
History Source: Patient
Constitutional: Reports No Symptoms
Respiratory: Reports No Symptoms
Cardiac: Reports No Symptoms
Abdomen/GI: Reports No Symptoms
Neuro: Denies Headache or Weakness
Physical Exam
-
General: No Apparent Distress and Appears Chronically Ill
HEENT: Normocephalic
Respiratory: Clear to Auscultation
Cardiac: Regular Rhythm and S1/S2
GI: Soft and Nontender
Skin: Warm and Dry
Neuro: Awake
Psych: Confused
Data Reviewed
-
Labs: Labs Reviewed by me, Discussed with Physician and Discussed with Patient
--- NOTE | 2024-08-21 11:11 | PTOTSP ---
ST Acute Care Evaluation
Pt currently presents with clinical signs of mild oropharyngeal and esophageal dysphagia characterized by occasional bolus holding, occasional coughing/throat clearing s/p ingestion of thin liquids, and eructation s/p ingestion of liquids. Pt also
reportedly observed to have witnessed coughing events s/p ingestion of mixed consistencies. Pt is at an elevated risk for aspiration given his current encephalopathy, lethargy, impulsivity, reduced insight to his current deficits, and hx of both
dementia and CVA.
Recommendations:
- Continue with regular solids, thin liquids, and meds whole in puree (crush as needed), but NO MIXED CONSISTENCIES.
- Aspiration and reflux precautions: HOB upright for ALL P O intake and for at least 60 minutes after PO intake; CLOSE supervision for PO intake - remind pt to swallow what's in his mouth and check for oral clearance at end of meals; encourage pt to
eat/drink slowly.
- HAND GLUER AND SLICER to f/u re: diet tolerance, use of compensatory strategies, and to determine if pt would benefit from an instrumental swallow study.
- HAND GLUER AND SLICER to also monitor cognitive status while admitted.
--- NOTE | 2024-08-21 11:27 | PTOTSP ---
Patient demonstrates dependent assist x 2 for bed mobility and heavy assist for scooting to HOB.
Is not able to follow cues for skilled therapy and does not demonstrate skilled therapy need at this time.
For OOB mobility to recliner or chair- recommend use of Alan sling with nursing.
Will discharge from caseload
[2024-08-21 12:30] LABS: Glucose - Point of Care 230 mg/dl (70-99)
--- NOTE | 2024-08-21 12:34 | CON.ID ---
Consultation
-
Date/Time Consultation Requested: 08/20/2024 2313
Date/Time Consultation Performed: 08/21/2024 1220
Requesting Provider: Luzma Apodaca
Performing Provider: Dr. Ha
Reason for Consultation: Complicated urinary tract infection
Chief Complaint / Past History
History of Present Illness
Jaime Hung is a 78-year-old male with significant past medical history of DM, dementia and BPH being evaluated at the request of Luzma Apodaca in regards to encephalopathy and a complicated urinary tract infection. History is obtained from
chart review alone as the patient could not provide any meaningful history for me.
The patient is known to the Infectious Diseases service, having been seen during a recent hospitalization from 07/12/2024 through 07/19/2024. During that time he was treated for a complicated urinary tract infection secondary to ESBL E. coli and
Pseudomonas aeruginosa. He completed a course of Zosyn on 07/24.
He presents back to the hospital on 08/20 secondary to reported change in mental status. According to reviewed notes, he reportedly was having increased incontinence, with the production of foul-smelling urine. In the emergency room, he was noted
to have a low-grade leukocytosis.
At present, he is arousable and responsive, but can provide no significant additional history. Review of systems is limited, but he specifically denies any pain.
Past History
Additional Past Medical History:
Dementia
DM
BPH
Hypothyroidism
Depression
Allergy History:
morphine Allergy (Verified 08/20/24 18:51)
Unknown
nitrofurantoin Allergy (Verified 08/20/24 18:51)
Unknown
Medications Reviewed: Yes
Current Antibiotics:
Meropenem 500 mg IV every 8 hours
Social History
Tobacco: Non-Smoker
Alcohol: None
Drug: None
Living: With Family
Employment: Not Employed
Family History
Family History: Unable to Obtain
Review of Systems
Vital Signs
Temp Pulse Resp BP Pulse Ox
99.7 F 89 18 139/66 94
08/21/24 07:37 08/21/24 07:37 08/21/24 07:37 08/21/24 07:37 08/21/24 09:40
Physical Exam
Physical Exam
Constitutional: No Acute Distress, Comfortable, Chronically Ill, Non-toxic and Obese
Head: Normocephalic
Eyes: Pupils Equal, Pupils Round, No Conjunctival Hemorrhage and Sclera Anicteric
Oral: No Thrush and No Ulcers
Cardiovascular: Regular Rate and S1/S2; Negative S3/S4
Pulmonary: Clear; Negative Wheezes, Rales or Rhonchi
Gastrointestinal: Soft, Non Tender, Non Distended, Normal Bowel Sounds, No Rebound and No Guarding
Genito-Urinary: Degroot (Condom catheter) and Clear Urine; Negative Turbid Urine or Hematuria
Extremities: Venous Insufficiency (Bilateral lower extremities); Negative Edema or Cyanosis
Musculoskeletal: Negative Joint Swelling or Joint Effusion
Neurological: Other (Arousable; responsive to voice.)
Psychological: Calm and Confused
.
Lab / Diagnostic Study Results
08/21/24 05:29
08/21/24 05:29
Abs Immat Gran (auto) 0.1 10^3/uL (0-0.05) H 08/20/24 19:39
Absolute Neuts (auto) 8.4 10^3/uL (1.4-6.5) H 08/20/24 19:39
Absolute Lymphs (auto) 2.2 10^3/uL (1.2-3.4) 08/20/24 19:39
Absolute Monos (auto) 1.6 10^3/uL (0.1-0.6) H 08/20/24 19:39
Absolute Basos (auto) 0.1 10^3/uL (0-0.2) 08/20/24 19:39
Immature Gran % 0.4 % (0-0.5) 08/20/24 19:39
Neutrophils % 67.9 % (42.2-75.2) 08/20/24 19:39
Lymphocytes % 17.6 % (20.5-51.1) L 08/20/24 19:39
Monocytes % 12.7 % (1.7-9.3) H 08/20/24 19:39
Eosinophils % 0.8 % (0-6) 08/20/24 19:39
Basophils % 0.6 % (0-2) 08/20/24 19:39
Procalcitonin 0.15 ng/ml (0.0-0.25) 08/20/24 21:26
Ur Squamous Epith Cells 0-2 /LPF (Few) 08/20/24 18:52
Microbiology Results
Micro:
08/21/24 11:43 Blood Culture - Pending
Blood/Venous
08/21/24 01:25 MRSA Screen - Pending
Nose
08/20/24 18:52 Urine Culture - Pending
Urine
Imaging:
08/20/2024 CT head without contrast: No evidence of acute intracranial abnormality. Please see full dictation for additional detail.
07/12/2024 CT head with w/o IV contrast: No evidence of acute intracranial abnormality. There is a noted wedge-shaped area of volume loss and decreased density at the left parietal occipital junction compatible with old infarction. Please see full
dictation for additional detail.
Assessment / Plan
Complicated urinary tract infection
-Prior cultures with Pseudomonas and ESBL E. coli
Leukocytosis
Encephalopathy; suspect TME
MIKE
Dementia
DM (uncontrolled; HbA1c = 7.8)
BPH
Hypothyroidism
Depression
Recommendations:
Given review of prior cultures with recovery of Pseudomonas and ESBL E. coli, continue with empiric meropenem.
Monitor white count and temperature curve.
Monitor creatinine and adjust antibiotics as appropriate for current renal function.
Await final culture data to guide antimicrobial selection and potential de-escalation.
Further recommendations as additional data is returned.
--- NOTE | 2024-08-21 14:02 | CM ---
Patient seen at bedside with daughter Yvonne STONER
IA completed
Dx: MIKE, UTI
PMH: Dementia, hypothyroid, IDDM, HDL, UTI, CVA
Patient is a LTC resident at [facility] - referral entered in [facility]
PLOF: wheelchair bound
DME: wheelchair
PCP: Gerber Daley
Pharmacy: [facility]
PLAN: Return to [facility] when medically stable
[2024-08-21 15:45] VITALS: BP 136/56
[2024-08-21 16:33] LABS: Glucose - Point of Care 232 mg/dl (70-99)
[2024-08-21] MEDS: ARICEPT 10 MG PO (21:01)
[2024-08-21] MEDS: FLOMAX 0.4 MG PO (21:01)
[2024-08-21 21:23] LABS: Glucose - Point of Care 273 mg/dl (70-99)
[2024-08-21 22:55] VITALS: BP 152/70
[2024-08-22] MEDS: HEPARIN 5000 UNITS SC ×3 (00:50→15:48)
[2024-08-22] MEDS: MERREM 500 MG IV ×3 (04:40→20:20)
[2024-08-22] MEDS: STERILE WATER FOR INJECTION 10 ML IV ×3 (04:40→20:20)
[2024-08-22] MEDS: SYNTHROID 75 MCG PO (05:43)
[2024-08-22] MEDS: NSS 1000 IV (05:43)
--- NOTE | 2024-08-22 07:38 | W.PN.HOSP.TC ---
Addendum entered and electronically signed by Vitaly Caballero MD 08/22/24 23:25:
Attending Addendum-
I saw and evaluated the patient. I reviewed the resident�s note and agree with findings and plan as documented in the resident�s note. Sub: afebrile, no complaints. speaks in one word sentences at baseline. very pleasant. Full 12 point ROS reviewed
and negative except as documented Exam: Vitals reviewed in chart GEN-NAD heart RRR lungs clear abd soft LE no edema Neuro AAO x 2 dysarthric [address] cath in place draining clear yellow urine
Plan:
#TME
-mentation returning back to baseline
-secondary to sepsis
-Procal- neg
-consult PT/OT
#Sepsis secondary to UTI
-Urine Cx- proteus- sensi pend
-Hx ESBL and pseudomonas
-continue Meropenem day #2, hopeful transition to PO when sensi resulted
-blood cx-NGTD
-ID input appreciated
#MIKE on CKD 3b
-baseline @ 1.5
-improving
-DC IVF
-BMP in am
#IDDM
- AccuCheck AC & HS
- SSI
- hba1c- 7.8
- continue home insulin regimen L12 N5ac
# DM PN
- cont gabapentin
#dementia
#depression
- continue donepezil, duloxetine and memantine
#hypothyroidism
- continue levothyroxine
#BPH
- continue tamsulosin
#Hx recent CVA 07/26
- continue aspirin and atorvastatin
- completed plavix x 21 days
Code Status: Full code d/w POA
DVT Prophylaxis: Heparin Sq
[facility], able to take patient back over weekend
Time spent coordinating care, review of plan of care with resident, personally reviewed records in EMR, med rec, consults, notes, labs, radiology, d/w nursing CM � 52 mins
Original Note:
Today's Communication/Plan
-
Continue IV antibiotics for now will transition to p.o. once final culture results are back.
Possible dispo tomorrow back to [facility]
Assessment / Plan
Assessment / Plan
79-year-old with past medical history significant for dementia, hypothyroid, diabetes, hyperlipidemia recent admission for UTI with toxic and metabolic encephalopathy with hospital course complicated by acute CVA treated with aspirin Plavix x 21
days and ultimately discharged to SNF, Presented with Altered mental status.
CT abdomen pelvis 08/20/2024 IMPRESSION: Evaluation of the lungs is limited because of significant respiratory motion artifact. Possible groundglass opacities within both lungs, and suggests the possibility of interstitial/ground glass pneumonitis.
Consideration for follow-up chest radiography.
Moderate elevation right hemidiaphragm.
Coronary artery calcifications are present. Please correlate with symptoms of and risk factors for coronary artery disease, with further workup as clinically appropriate.
Thickening of the wall the urinary bladder, especially anteriorly and anterolaterally, and suggests the possibility of cystitis.
Moderate bilateral ureteral and pelvicalyceal dilation, which extends to the ureterovesical junction bilaterally with no evidence for calculus. Etiology for this dilation is uncertain. The bladder does not appear to be significantly distended, but
consideration could be given to decompression of the bladder with Degroot catheter.
Cholelithiasis. No CT findings that would be considered highly suspicious for acute cholecystitis.
Moderate amount of stool throughout the colon, suggesting a degree constipation. Moderate distention of the rectum with stool with no findings to suggest stercoral colitis.
#Toxic metabolic encephalopathy likely secondary to acute UTI/cystitis
--Procal within normal limits
--Urine culture still pending
--Blood culture pending; MRSA negative
--Continue IV meropenem for now
--CT abdomen/pelvis as above
--Discontinue IV
-- Overall returning back to baseline
# Sepsis secondary to UTI
--Urine culture pending
-- AFVSS
--WBC 11.8 today
#MIKE on CKD 3B
-- Likely due to dehydration
-- Creatinine 2.6 on arrival.(Baseline being 1.5)
-- Repeat creatinine trending down 1.8
-- CT abdomen pelvis did not show any obstruction; report as above
-- Discontinue IV fluids; continue current diet
# Altered mental status
# History of recent CVA 07/21
-- given h/o recent stroke; repeat CT head was obtained; did not show any acute intracranial abnormality
-- continue aspirin/statin
#cough
-- speech eval
# Diabetes type II
-- continue lantus 12 daily
-- sliding scale insulin
-- A1c 7.8
# Diabetic neuropathy
-Continue gabapentin and duloxetine
# Hypothyroidism
--Continue levothyroxine 75 mcg home dose
# Dementia
--Continue donepezil and memantine
# BPH
--Continue tamsulosin
DVT PPX - heparin sq
Code status - Full Code
Dispo back to [facility] when able to transition to p.o. antibiotics.
Anticipated Discharge: Within 24 hours
Subjective/Interval History
-
Date of Service: August 22, 2024
Patient with history of dementia denies any pain or trouble breathing. Offers no new complaints. Pleasantly demented
Objective Data
-
Labs:
Laboratory Results
08/22/24
06:48
WBC Pending
Hgb Pending
Hct Pending
Plt Count Pending
Sodium Pending
Potassium Pending
Chloride Pending
Carbon Dioxide Pending
BUN Pending
Creatinine Pending
Glucose Pending
Calcium Pending
Vital Signs:
Vital Signs
Temp Pulse Resp BP Pulse Ox
99.7 F 81 18 152/70 97
08/21/24 22:55 08/21/24 22:55 08/21/24 22:55 08/21/24 22:55 08/21/24 22:55
I&O
08/21/24 08/22/24 08/23/24
06:59 06:59 06:59
Intake Total 700 / 700 1020 / 1020
Output Total 525 / 525 2100 / 2100
Balance 175 / 175 -1080 / -1080
Review of Systems
-
Unable to obtain full review of systems at this time due to: Dementia
History Source: Patient
Constitutional: Reports No Symptoms
Respiratory: Reports No Symptoms
Cardiac: Reports No Symptoms
Abdomen/GI: Reports No Symptoms
Neuro: Denies Headache or Weakness
Physical Exam
-
General: No Apparent Distress
HEENT: Normocephalic
Respiratory: Clear to Auscultation
Cardiac: Regular Rhythm and S1/S2
GI: Soft and Nontender
Skin: Warm and Dry
Neuro: Awake
Psych: Calm and Apparent Dementia
Data Reviewed
-
Labs: Labs Reviewed by me, Discussed with Physician and Discussed with Patient
[2024-08-22 07:44] LABS: Blood Urea Nitrogen 38 mg/dl (9-20); Calcium 7.8 mg/dl (8.4-10.2); Carbon Dioxide 21 mmol/L (22-30); Chloride 104 mmol/L (98-107); Estimated Creatinine Clearance 42 ml/min; Glucose 180 mg/dl (70-99); Potassium 4.5 mmol/L (3.5-5.1); Sodium 137 mmol/L (135-145); eGFR 37.58
[2024-08-22 07:46] VITALS: BP 124/55
[2024-08-22 07:49] LABS: Hemoglobin 8.9 g/dL (13.0-18.0); Mean Corpuscular Hgb 29.9 pg (27.0-31.0); Mean Corpuscular Volume 90.6 fL (80.0-94.0); Mean Platelet Volume 9.8 fL (7.4-10.4); Platelet Count 332 10^3/uL (130-400); Red Blood Cell Count 2.98 10^6/uL (4.70-6.10); Red Cell Dist. Width 16.5 % (11.5-14.5); White Blood Cell Count 11.8 10^3/uL (4.8-10.8)
[2024-08-22 08:10] LABS: Glucose - Point of Care 194 mg/dl (70-99)
[2024-08-22] MEDS: MIRALAX 17 GRAMS PO (08:43)
[2024-08-22] MEDS: LIPITOR 40 MG PO (08:43)
[2024-08-22] MEDS: OSCAL CAL 500 500 MG PO (08:43)
[2024-08-22] MEDS: VITAMIN B-12 1000 MCG PO (08:43)
[2024-08-22] MEDS: NAMENDA 10 MG PO ×2 (08:43→20:19)
[2024-08-22] MEDS: CYMBALTA DELAYED RELEASE 60 MG PO (08:43)
[2024-08-22] MEDS: LANTUS 0.12 UNITS SC (08:43)
[2024-08-22] MEDS: MAG-TAB SR 84 MG PO (08:43)
[2024-08-22] MEDS: LOW STRENGTH ASPIRIN 81 MG PO (08:44)
[2024-08-22] MEDS: LYRICA 150 MG PO ×2 (08:44→20:19)
[2024-08-22] MEDS: NOVOLOG FLEXPEN 5 UNITS SC ×3 (08:44→17:43)
[2024-08-22] MEDS: NOVOLOG FLEXPEN-LOW RESISTANCE 1 UNITS SC (08:45)
[2024-08-22] MEDS: DRISDOL (VITAMIN D2) 50000 UNITS PO (08:47)
[2024-08-22] MEDS: DESENEX/MITRAZOL/ZEASORB 1 APPLIC TOPICAL ×2 (08:48→20:21)
[2024-08-22 13:05] LABS: Glucose - Point of Care 226 mg/dl (70-99)
--- NOTE | 2024-08-22 13:23 | W.PN.ID1 ---
Date of Service
Date of Service: August 22, 2024
Today's Communication
When final Ucx available, transition to po abx.
Assessment / Plan
Complicated urinary tract infection
-Prior cultures with Pseudomonas and ESBL E. coli
- Current cx Proteus
Leukocytosis
Encephalopathy; suspect TME
MIKE - improving
Dementia
DM (uncontrolled; HbA1c = 7.8)
BPH
Hypothyroidism
Depression
Recommendations:
Continue with empiric meropenem for now.
When final Ucx available, transition to po abx.
Monitor white count and temperature curve.
Monitor creatinine and adjust antibiotics as appropriate for current renal function.
Chief Complaint
-: UTI
Subjective / Review of Systems
Feels well. No complaints.
Vital Signs / Physical Exam
Vital Signs
Vital Signs
Temp Pulse Resp BP Pulse Ox
97.2 F 74 18 124/55 94
08/22/24 07:46 08/22/24 07:46 08/22/24 07:46 08/22/24 07:46 08/22/24 07:46
Physical Exam
Constitutional: No Acute Distress
Cardiovascular: Regular Rate and S1/S2
Pulmonary: Clear
Gastrointestinal: Soft, Non Tender, Non Distended and Normal Bowel Sounds
Genito-Urinary: Degroot and Clear Urine; Negative CVA Tenderness
Neurological: Awake and Alert
Objective Data
Lab Data
Lab Results
08/22/24 06:48
08/22/24 06:48
Estimated Creat Clear 42 ml/min 08/22/24 06:48
Total Bilirubin 0.8 mg/dl (0.2-1.3) 08/20/24 19:39
AST 23 U/L (17-59) 08/20/24 19:39
ALT 11 U/L (0-50) 08/20/24 19:39
Alkaline Phosphatase 100 U/L (38-126) 08/20/24 19:39
Most recent labs reviewed.
Micro Results:
08/21/24 12:41 Blood Culture - Preliminary
Blood/Venous No Growth in 24 hours- Final report to follow
08/21/24 11:43 Blood Culture - Preliminary
Blood/Venous No Growth in 24 hours- Final report to follow
08/20/24 18:52 Urine Culture - Preliminary
Urine Proteus species
08/21/24 01:25 MRSA Screen - Final
Nose No Methicillin Resistant Staphylococcus aureus isolated.
Imaging:
08/20/2024 CT head without contrast: No evidence of acute intracranial abnormality. Please see full dictation for additional detail.
07/12/2024 CT head with w/o IV contrast: No evidence of acute intracranial abnormality. There is a noted wedge-shaped area of volume loss and decreased density at the left parietal occipital junction compatible with old infarction. Please see full
dictation for additional detail.
[2024-08-22] MEDS: NOVOLOG FLEXPEN-LOW RESISTANCE 2 UNITS SC ×2 (13:37→17:43)
[2024-08-22 15:18] VITALS: BP 125/56
[2024-08-22] MEDS: NSS IV (15:51)
--- NOTE | 2024-08-22 16:29 | CM ---
Patient from [facility]..
Plan: possible weekend transfer
Per [facility] Liaison they can accept over the weekend.
Will need to contact [place] at [phone] (weekend on-call)
Plan: [facility] when stable.
[facility]
report# [phone]
fax# [phone]
[2024-08-22 17:36] LABS: Glucose - Point of Care 239 mg/dl (70-99)
[2024-08-22] MEDS: FLOMAX 0.4 MG PO (20:19)
[2024-08-22] MEDS: ARICEPT 10 MG PO (20:19)
[2024-08-22 21:39] LABS: Glucose - Point of Care 158 mg/dl (70-99)
[2024-08-22 23:08] VITALS: BP 105/57
[2024-08-23] MEDS: HEPARIN 5000 UNITS SC ×2 (00:11→08:24)
[2024-08-23] MEDS: STERILE WATER FOR INJECTION 10 ML IV (04:32)
[2024-08-23] MEDS: MERREM 500 MG IV (04:32)
[2024-08-23] MEDS: SYNTHROID 75 MCG PO (06:30)
[2024-08-23 07:26] VITALS: BP 127/60
[2024-08-23 07:26] LABS: Glucose - Point of Care 142 mg/dl (70-99)
[2024-08-23 07:45] LABS: Hematocrit 26.1 % (39.0-52.0); Hemoglobin 8.5 g/dL (13.0-18.0); Mean Corp Hgb Conc. 32.6 g/dL (33.0-37.0); Mean Corpuscular Hgb 30.5 pg (27.0-31.0); Mean Corpuscular Volume 93.5 fL (80.0-94.0); Platelet Count 379 10^3/uL (130-400); Red Blood Cell Count 2.79 10^6/uL (4.70-6.10); White Blood Cell Count 10.1 10^3/uL (4.8-10.8)
[2024-08-23] MEDS: NOVOLOG FLEXPEN-LOW RESISTANCE SC (08:06)
[2024-08-23 08:18] LABS: Blood Urea Nitrogen 36 mg/dl (9-20); Carbon Dioxide 25 mmol/L (22-30); Chloride 107 mmol/L (98-107); Estimated Creatinine Clearance 48 ml/min; Glucose 134 mg/dl (70-99); Potassium 4.6 mmol/L (3.5-5.1); Sodium 138 mmol/L (135-145); eGFR 43.29
[2024-08-23] MEDS: LANTUS 0.12 UNITS SC (08:22)
[2024-08-23] MEDS: NOVOLOG FLEXPEN 5 UNITS SC ×2 (08:23→13:57)
[2024-08-23] MEDS: OSCAL CAL 500 500 MG PO (08:24)
[2024-08-23] MEDS: MIRALAX 17 GRAMS PO (08:24)
[2024-08-23] MEDS: LIPITOR 40 MG PO (08:24)
[2024-08-23] MEDS: VITAMIN B-12 1000 MCG PO (08:25)
[2024-08-23] MEDS: MAG-TAB SR 84 MG PO (08:25)
[2024-08-23] MEDS: NAMENDA 10 MG PO (08:25)
[2024-08-23] MEDS: LYRICA 150 MG PO (08:25)
[2024-08-23] MEDS: CYMBALTA DELAYED RELEASE 60 MG PO (08:25)
[2024-08-23] MEDS: LOW STRENGTH ASPIRIN 81 MG PO (08:25)
[2024-08-23] MEDS: DESENEX/MITRAZOL/ZEASORB 1 APPLIC TOPICAL (08:26)
--- NOTE | 2024-08-23 09:11 | W.PN.HOSP.TC ---
Addendum entered and electronically signed by Jaqueline Desai MD 08/23/24 10:52:
updated daughter on the phone
total DC time 40 min
Original Note:
Today's Communication/Plan
-
DC back to [place] today
Assessment / Plan
Assessment / Plan
79-year-old with past medical history significant for dementia, hypothyroid, diabetes, hyperlipidemia, recent admission for UTI with toxic and metabolic encephalopathy with hospital course complicated by acute CVA treated with aspirin/Plavix x 21
days and ultimately discharged to SNF, presented with Altered mental status.
A/P:
# TME secondary to sepsis
mentation returning back to baseline, awake and pleasant, not orientated
Procal- neg
consult PT/OT: no skilled PT needed
# Sepsis POA secondary to UTI
# Hx ESBL and pseudomonas
Urine Cx with proteus- sensi noted
on Meropenem, to transition to PO Keflex today
blood cx NGTD
ID input appreciated
# MIKE on CKD 3b
baseline @ 1.5
SCr 2.6 to 1.6 today
off IVF
Follow BMP with PCP in 1 week
# IDDM
AccuCheck AC & HS
SSI
hba1c- 7.8
continue home insulin regimen
# DM PN
cont gabapentin
# dementia
# depression
continue donepezil, duloxetine and memantine
# hypothyroidism
continue levothyroxine
# BPH
continue tamsulosin
# Hx recent CVA 07/26
continue aspirin and atorvastatin
completed plavix x 21 days
Code Status: Full code d/w POA
DVT Prophylaxis: Heparin Sq
[facility], able to take patient back over weekend
DW ID
DW RN
Anticipated Discharge: Today
Subjective/Interval History
-
Date of Service: August 23, 2024
Objective Data
-
Labs:
Laboratory Results
08/23/24
07:08
WBC 10.1
Hgb 8.5 L
Hct 26.1 L
Plt Count 379
Sodium 138
Potassium 4.6
Chloride 107
Carbon Dioxide 25
BUN 36 H
Creatinine 1.6 H
Glucose 134 H
Calcium 8.0 L
Vital Signs:
Vital Signs
Temp Pulse Resp BP Pulse Ox
37.2 C 75 17 127/60 96
08/23/24 07:26 08/23/24 07:26 08/23/24 07:26 08/23/24 07:26 08/23/24 07:26
I&O
08/22/24 08/23/24 08/24/24
06:59 06:59 06:59
Intake Total 1020 / 1020 540 / 540
Output Total 2099 / 2099
Balance -1080 / -1080 -1485 / -1484
Review of Systems
-
Unable to obtain full review of systems at this time due to: Dementia
Physical Exam
-
General: Well Developed, Well Nourished, No Apparent Distress and Comfortable
HEENT: Normocephalic
Respiratory: Clear to Auscultation and Non Labored Respirations; Negative Accessory Resp Muscle Use
Cardiac: Regular Rhythm and S1/S2
GI: Soft and Nontender
Skin: Warm and Dry
Neuro: Awake
Psych: Calm and Apparent Dementia
Data Reviewed
-
Labs: Labs Reviewed by me
[2024-08-23] MEDS: KEFLEX 500 MG PO (09:31)
--- NOTE | 2024-08-23 10:35 | CM ---
Addendum entered by Lori Wilson RN 08/23/24 13:55:
CM informed patient's daughter of scheduled pickup time of 1630.
Addendum entered by Lori Wilson RN 08/23/24 12:17:
CM reviewed the chart notes and spoke with the patient's daughter Yvonne. Updated on discharge back to facility. Attending updated the daughter regarding discharge plans.
Plan: Discharge back to [facility]
report# [phone]
fax# [phone]
Medical necessity and transport forms on the chart.
Original Note:
IMM reviewed.
[2024-08-23 12:37] LABS: Glucose - Point of Care 242 mg/dl (70-99)
[2024-08-23] MEDS: NOVOLOG FLEXPEN-LOW RESISTANCE 2 UNITS SC (13:58)
[2024-08-23 15:33] VITALS: BP 121/56
[2024-08-23 17:50] LABS: Glucose - Point of Care 171 mg/dl (70-99)
--- NOTE | 2024-08-23 18:09 | PTCARENOTE ---
Patient discharged back to [facility], report given to Vivi at facility by this RN. IV removed, vitals taken and hygiene provided by this RN and tech prior to transport. Belonging bags handed to transport team. Blood sugar 171 prior to
transport.
== END 2024-08-23 18:40 | DRG 871 ==
LOC: 2 NORTH 22:00
PROVIDERS: Emergency Medicine; Nurse Practitioner Family; ADMITTING PHYSICIAN Internal Medicine; ATTENDING PHYSICIAN Internal Medicine; CONSULT PHYSICIAN Internal Medicine Infectious Disease; EMERGENCY PHYSICIAN Student in an Organized Health Care Education/Training Program; FAMILY PHYSICIAN Nurse Practitioner
DX: A41.59 Other Gram-negative sepsis (principal); G92.8 Other toxic encephalopathy; N39.0 Urinary tract infection, site not specified; F03.93 Unspecified dementia, unspecified severity, with mood disturbance; N17.9 Acute kidney failure, unspecified; E78.00 Pure hypercholesterolemia, unspecified; R79.89 Other specified abnormal findings of blood chemistry; R32 Unspecified urinary incontinence; E03.9 Hypothyroidism, unspecified; E11.22 Type 2 diabetes mellitus with diabetic chronic kidney disease; I12.9 Hypertensive chronic kidney disease with stage 1 through stage 4 chronic kidney disease, or unspecified chronic kidney disease; N18.32 Chronic kidney disease, stage 3b; F32.A Depression, unspecified; B96.4 Proteus (mirabilis) (morganii) as the cause of diseases classified elsewhere; N40.0 Benign prostatic hyperplasia without lower urinary tract symptoms; Z60.2 Problems related to living alone; Z87.440 Personal history of urinary (tract) infections; Z86.19 Personal history of other infectious and parasitic diseases; Z79.890 Hormone replacement therapy; Z79.82 Long term (current) use of aspirin; Z79.4 Long term (current) use of insulin; Z79.02 Long term (current) use of antithrombotics/antiplatelets; Z86.73 Personal history of transient ischemic attack (TIA), and cerebral infarction without residual deficits; Z88.5 Allergy status to narcotic agent; Z88.3 Allergy status to other anti-infective agents
CPT/HCPCS: 70450; 71250; 74176; 80048; 80053; 81003; 81015; 82962; 83036; 84145; 85025; 85027; 87040; 87070; 87077; 87086; 87186; 92526; 92610; 96374; 97163; 97167; 99285; J2185

== ENCOUNTER 2024-09-08 19:36 | Emergency (ER) | payer MEDICARE, OTHER, SELFPAY ==
[2024-09-08 19:40] VITALS: BP 156/65
[2024-09-08 19:45] LABS: Glucose - Point of Care 94 mg/dl (70-99)
[2024-09-08 19:56] LABS: % Basophils 1.5 % (0-2); % Eosinophils 5.4 % (0-6); % Immature Granulocytes 0.3 % (0-0.5); % Monocytes 7.9 % (1.7-9.3); % Neutrophils 47.9 % (42.2-75.2); Absolute Basophils 0.1 10^3/uL (0-0.2); Absolute Eosinophils 0.4 10^3/uL (0-0.7); Absolute Lymphocytes 2.7 10^3/uL (1.2-3.4); Absolute Monocytes 0.6 10^3/uL (0.1-0.6); Absolute Neutrophils 3.5 10^3/uL (1.4-6.5); Hematocrit 29.8 % (39.0-52.0); Hemoglobin 9.8 g/dL (13.0-18.0); Mean Corp Hgb Conc. 32.9 g/dL (33.0-37.0); Mean Corpuscular Hgb 30.3 pg (27.0-31.0); Mean Corpuscular Volume 92.3 fL (80.0-94.0); Mean Platelet Volume 9.6 fL (7.4-10.4); Nucleated Red Blood Cells % 0 % (-); Platelet Count 280 10^3/uL (130-400); Red Blood Cell Count 3.23 10^6/uL (4.70-6.10); White Blood Cell Count 7.3 10^3/uL (4.8-10.8)
[2024-09-08 20:00] VITALS: BP 159/62
[2024-09-08 20:13] LABS: ALT (SGPT) < 10 U/L (0-50); AST (SGOT) 14 U/L (17-59); Albumin 3.6 g/dl (3.5-5.0); Alkaline Phosphatase 111 U/L (38-126); Blood Urea Nitrogen 28 mg/dl (9-20); Calcium 8.7 mg/dl (8.4-10.2); Carbon Dioxide 27 mmol/L (22-30); Chloride 105 mmol/L (98-107); Glucose 99 mg/dl (70-99); Potassium 5.1 mmol/L (3.5-5.1); Sodium 139 mmol/L (135-145); Total Bilirubin 0.4 mg/dl (0.2-1.3); Total Protein 7.1 g/dl (6.3-8.2); eGFR 37.58
--- NOTE | 2024-09-08 20:13 | ED.GENMED ---
History of Present Illness
General
Chief Complaint: Change in Mental Status
Source: patient
Exam Limitations: none
Time Seen by Provider: 09/08/24 19:40
Nursing documentation reviewed up to this point in time: agreed with
History of Present Illness
History of Present Illness:
Patient with history of dementia, [facility], after he was found to be more confused than usual, when seen by visiting family members this afternoon. Per paramedics, patient's mental status is currently at his baseline,
according to [facility] staff. Upon arrival, patient is alert and awake, but confused. Patient himself has no complaints. Denies abdominal pain. Denies vomiting. Denies diarrhea. Patient does not offer any additional information.
Past History
Past History
ED Past Medical History: HTN, Hypercholesterolemia and IDDM
ED Past Surgical History: Other (unknown)
Social History
Tobacco: Non-smoker
Alcohol: None
Review of Systems
Review of Systems
Allergies reviewed?: Yes
Unable to obtain full review of systems at this time due to: dementia
All Other Systems: Not applicable
Phy Exam
Physical Exam
Physical Exam:
Physical Exam
General: no apparent distress, not acutely ill. afebrile
Head: nc/at. eomi
Neck: supple. normal range of motion.
Heart: s1/s2 regular rate and rhythm, no murmur.
Lungs: no acute respiratory distress. clear bilaterally
Abdomen: normal bowel sounds. not tender.
Neuro: alert and oriented x 1. no focal neurological deficits
Skin: no rash
Psychiatric: pleasantly confused
Extremities: no edema. no calf tenderness.
Course
Orders/Labs/Results
Orders:
Orders
09/08/24 19:49
CBC/With Diff [Complete Blood Count/With Diff] Urgent
CMP [Comprehensive Metabolic Panel] Urgent
09/08/24 20:12
Straight cath- Treatment ONCE
09/08/24 20:26
Urinalysis Reflex To Culture Urgent
Date Specimen was Collected: 09/08/24
Time Specimen was Collected: 20:25
Urine Microscopic Reflex Cult Urgent
Urine Culture Urgent
QIAN Source: U
Specimen Description:
Date Specimen was Collected: 09/08/24
Time Specimen was Collected: 20:25
09/08/24 21:43
Fosfomycin [Monurol] 3 gm PO ONCE ONE
Abnormal Lab Results
09/08/24 09/08/24
19:49 20:26
RBC 3.23 L 10^6/uL
(4.70-6.10)
Hgb 9.8 L g/dL
(13.0-18.0)
Hct 29.8 L %
(39.0-52.0)
MCHC 32.9 L g/dL
(33.0-37.0)
RDW 16.0 H %
(11.5-14.5)
BUN 28 H mg/dl
(9-20)
Creatinine 1.8 H mg/dL
(0.7-1.3)
AST 14 L U/L
(17-59)
Ur Occult Blood Reflex 1+ A
(Negative)
Leukocyte Esterase Rfl 3+ A
(Negative)
Urine RBC 3-6 A /HPF
(0-2)
Urine WBC (Reflex) 40-50 A /HPF
(0-5)
Urine Bacteria (Reflex) Moderate A
(Negative)
Urine Albumin (Reflex) 2+ A
(Neg - Trace)
09/08/24 19:49
09/08/24 19:49
Vital Signs
Initial and Last Documented VS:
Initial Vital Signs
Temp Pulse Resp BP Pulse Ox
97.8 F 60 14 156/65 95
09/08/24 19:40 09/08/24 19:40 09/08/24 19:40 09/08/24 19:40 09/08/24 19:40
Last Documented Vital Signs
Temp Pulse Resp BP Pulse Ox
97.8 F 58 14 132/96 97
09/08/24 19:40 09/09/24 05:45 09/09/24 05:45 09/09/24 05:00 09/09/24 05:30
MDM/Problems Addressed
MDM/Problems Addressed:
Patient remains afebrile, hemodynamically stable, without any distress during extended course of observation. Blood work without any acute abnormal findings, but persistent abnormal findings, i.e. chronic renal insufficiency. Urinalysis noted,
significant for leukocyte esterase as well as WBCs on differential. As patient recently completed prolonged course of Keflex, with last dose within the past couple of days, difficult to determine whether or not this may represent ongoing infection
versus residual findings from previous infection. As patient is well-appearing otherwise, will administer 1 dose of Monurol, until culture results available. In addition, will recommend [facility] to follow the patient clinically, with
consideration to repeat urinalysis over the next 1 to 2 weeks.
*Critical Care Note
Total Time (30-74mins, 75-104mins- exclusive of procedures): Not Applicable
ED Attending Note
-
Portions of this chart may have been created with voice recognition software.� Occasional wrong word or��sound alike� substitutions may have occurred due to the inherent limitations of voice recognition software.
Discharge Plan
Departure
Patient Disposition: Jail/SNF
Date of Disposition: 09/08/24
Time of Disposition: 22:09
Patient with high blood pressure during this ER visit?: Yes
Discharge Problem:
UTI (urinary tract infection)
Instructions: Urinary tract infections in adults
Prescriptions:
No Action
acetaminophen 325 mg Tablet
650 mg PO Q4HPRN PRN (Reason: mild pain/temp>100)
polyethylene glycol 3350 17 gram Powder In Packet
17 g PO DAILY
donepezil 10 mg Tablet
10 mg PO HS
levothyroxine 75 mcg Tablet
75 mcg PO DAILY
calcium carbonate 600 mg calcium (1,500 mg) Tablet
600 mg PO DAILY
methenamine hippurate 1 gram Tablet
1 g PO DAILY
tamsulosin [Flomax] 0.4 mg Capsule
0.4 mg PO HS
insulin lispro [Admelog SoloStar U-100 Insulin] 100 unit/mL Insulin Pen
1 sliding scale dose SC AC
Rx Instructions:
201-250- 2 units, 251-300-4 units, 301-350- 6 units, 351-400- 8 units, 401-450- 10 units
pregabalin [Lyrica] 100 mg Capsule
100 mg PO NOON
pregabalin [Lyrica] 150 mg Capsule
150 mg PO BID
duloxetine 60 mg Capsule, Delayed Rel Sprinkle
60 mg PO DAILY
cyanocobalamin (vitamin B-12) 1,000 mcg Tablet
1,000 mcg PO DAILY Qty: 0 0RF
insulin aspart U-100 100 unit/mL (3 mL) Insulin Pen
5 unit SC AC Qty: 15 0RF
insulin glargine 100 unit/mL Solution
12 unit SC DAILY
aspirin 81 mg Tablet,Chewable
81 mg PO DAILY
ergocalciferol (vitamin D2) 1,250 mcg (50,000 unit) Capsule
1,250 mcg PO FR
memantine 10 mg Tablet
10 mg PO BID
magnesium oxide 400 mg magnesium Tablet
400 mg PO DAILY
atorvastatin 40 mg tablet
40 mg PO DAILY
cephalexin 500 mg Capsule
500 mg PO BID 12 Days Qty: 24 0RF
Activity Restrictions/Additional Instructions:
As discussed, [facility] are being [facility] for [facility], with consideration to repeat urinalysis over the next 1 to 2 weeks.
Interventions
Interventions:
*Risk Screen - Suicide Last Done: 09/08/24 19:40
*General Assessment Last Done: 09/08/24 19:40
*Neglect/Abuse Screening Last Done: 09/08/24 19:40
*ED- Fall Risk Assessment Last Done: 09/08/24 19:40
*ED COVID-19 Vaccine History Last Done: 09/08/24 19:40
*Nursing Disposition Last Done: 09/09/24 06:08
ED- Neurological Assessment Last Done: 09/08/24 20:40
ED Swallowing Screen Last Done: 09/08/24 20:40
Discharge Date and Time
Discharge Date/Time: 09/09/24 06:10
Print Language: [place]
[2024-09-08 20:53] LABS: Urine Albumin 2+ (Neg - Trace); Urine Bilirubin Negative (Negative); Urine Character Clear (Clear); Urine Color Yellow; Urine Glucose Negative (Negative); Urine Ketone Negative (Negative); Urine Leukocyte 3+ (Negative); Urine Nitrite Negative (Negative); Urine Occult Blood 1+ (Negative); Urine Urobilinogen Negative (Neg - 1+); Urine pH 6.5 (5.0-9.0)
[2024-09-08 21:00] VITALS: BP 160/69
[2024-09-08 21:19] LABS: Urine Bacteria Moderate (Negative); Urine Hyaline Cast 0-2 /LPF (0-2); Urine White Cell 40-50 /HPF (0-5)
[2024-09-08 22:01] VITALS: BP 170/64
[2024-09-08] MEDS: MONUROL 3 GM PO (22:10)
[2024-09-08 23:00] VITALS: BP 154/67
[2024-09-09 00:02] VITALS: BP 170/74
[2024-09-09 01:02] VITALS: BP 143/89
[2024-09-09 03:00] VITALS: BP 131/67
[2024-09-09 04:00] VITALS: BP 133/60
[2024-09-09 05:00] VITALS: BP 132/96
== END 2024-09-09 06:10 ==
LOC: EMR 19:36
PROVIDERS: EMERGENCY PHYSICIAN Emergency Medicine; FAMILY PHYSICIAN Internal Medicine
DX: N39.0 Urinary tract infection, site not specified (principal); F03.90 Unspecified dementia, unspecified severity, without behavioral disturbance, psychotic disturbance, mood disturbance, and anxiety; I10 Essential (primary) hypertension; E78.00 Pure hypercholesterolemia, unspecified; E11.9 Type 2 diabetes mellitus without complications
CPT/HCPCS: 99283; 80053; 81003; 81015; 82962; 85025; 87086

== ENCOUNTER 2025-01-05 14:36 | Inpatient (IN) | payer MEDICARE, OTHER, SELFPAY ==
[2025-01-05] VITALS (9 sets, daily range): BP systolic 105–172; BP diastolic 56–92; BMI 37.5
[2025-01-05 12:24] LABS: Hematocrit 33.6 % (39.0-52.0); Hemoglobin 10.8 g/dL (13.0-18.0); Mean Corp Hgb Conc. 32.1 g/dL (33.0-37.0); Mean Corpuscular Volume 88.0 fL (80.0-94.0); Nucleated Red Blood Cells % 0 % (-); Platelet Count 206 10^3/uL (130-400); Red Cell Dist. Width 14.6 % (11.5-14.5)
[2025-01-05 12:26] LABS: Urine Character Slightly Cloudy (Clear)
[2025-01-05 12:46] LABS: Urine White Cell >100 /HPF (0-5)
[2025-01-05 12:47] LABS: ALT (SGPT) < 10 U/L (0-50); AST (SGOT) 14 U/L (17-59); Albumin 3.6 g/dl (3.5-5.0); Alkaline Phosphatase 161 U/L (38-126); Blood Urea Nitrogen 34 mg/dl (9-20); COVID-19 Antigen Negative (Negative); Calcium 8.3 mg/dl (8.4-10.2); Carbon Dioxide 27 mmol/L (22-30); Chloride 106 mmol/L (98-107); Glucose 91 mg/dl (70-99); Potassium 4.5 mmol/L (3.5-5.1); Sodium 141 mmol/L (135-145); Total Protein 7.3 g/dl (6.3-8.2); eGFR 23.10
--- NOTE | 2025-01-05 13:08 | ED.GENMED ---
History of Present Illness
General
Chief Complaint: Change in Mental Status
Time Seen by Provider: 01/05/25 13:03
Nursing documentation reviewed up to this point in time: agreed with
History of Present Illness
History of Present Illness:
79-year-old male brought to the ER by EMS for evaluation of altered mental status. Patient has a history of dementia and is unable to provide any relevant history with regards to events of today. He was allegedly aggressive per nursing staff which
is his typical behavior when he has a urinary tract infection. He offers no complaints of discomfort. No reported trauma.
He does have significant prior medical history including dementia, bipolar disorder, hypertension, hyperlipidemia, CAD, metabolic encephalopathy, hypothyroidism, type 2 diabetes, dysphagia and schizophrenia
I was able to review medication list that was brought to the ER by EMS from his long-term care facility.
Past History
Past History
ED Past Medical History: HTN, Hypercholesterolemia and IDDM
ED Past Surgical History: Other (unknown)
Social History
Tobacco: Non-smoker
Alcohol: None
Phy Exam
Physical Exam
Physical Exam:
Patient is awake, alert, appears in no acute distress, head is normocephalic atraumatic, PERRL, EOMI, mucous membranes tacky, heart regular rate and rhythm no murmurs or ectopy, lungs are clear to auscultation without wheezes rales or rhonchi,
abdomen is soft and nontender, no guarding or rebound, extremities without edema, 2+ DP pulses present symmetric bilateral feet, GCS is 14 due to confusion
Course
Orders/Labs/Results
Orders:
Orders
01/05/25 12:14
COVID-19 Antigen Urgent
Source: Nasal Swab
Complete Blood Count/With Diff Urgent
Comprehensive Metabolic Panel Urgent
Urinalysis Reflex To Culture Urgent
Date Specimen was Collected: 01/05/25
Time Specimen was Collected: 12:03
Urine Microscopic Reflex Cult Urgent
Influenza A+B Rapid Molecular Urgent
QIAN Source: Nasal Swab
Specimen Description:
Date Specimen was Collected: 01/05/25
Time Specimen was Collected: 12:03
Urine Culture Urgent
QIAN Source: U
Specimen Description:
Date Specimen was Collected: 01/05/25
Time Specimen was Collected: 12:03
01/05/25 13:12
CefTRIAXone [Rocephin] 1,000 mg IV NOW STA
01/05/25 13:15
0.9% Sodium Chloride 1000 ml [Nss] 1,000 ml IV 500 mls/hr
01/05/25 13:55
Admit/Transfer Patient As Directed
Co-Sign Provider:
Level of Care: Inpatient admission
Assign to:: Medical/Surgical
Physician / Group: Hospitalist
Diagnosis: Confusion
Reason for Hospitalization: .
Expected length of stay greater than two midnights?: Yes
ELOS- Estimated Length of Stay in days: 3
I certify the patient meets the requirements for IP care: Yes
PRN Pain Medication Management As Directed
May give lesser potent ordered pain med per pt: Yes
preference::
Protocol:: Medication orders for pain may be administered in a
manner that supports deferring to patient preference
when the pt is:
- Requesting an ordered lesser potent pain medication.
Least to most potent pain medications are defined
as: acetaminophen < NSAID < tramadol < opioids
(morphine, oxycodone, hydromorphone).
- Requesting a lesser dose of the same medication IF
ORDERED.
- Requesting a less intrusive route of administration
if both routes are prescribed by the provider (PO <
IV).
01/05/25 13:57
CT Abd/pelvis Wo Iv Cont Stat
Comment:
Reason For Exam: renal failure
CT Head W/o Iv Contrast Stat
Comment:
Reason For Exam: confusion
01/05/25 14:08
Blood Culture Stat
QIAN Source: Blood/Venous
Specimen Description:
Abnormal Lab Results
01/05/25
12:14
RBC 3.82 L 10^6/uL
(4.70-6.10)
Hgb 10.8 L g/dL
(13.0-18.0)
Hct 33.6 L %
(39.0-52.0)
MCHC 32.1 L g/dL
(33.0-37.0)
RDW 14.6 H %
(11.5-14.5)
BUN 34 H mg/dl
(9-20)
Creatinine 2.7 H mg/dL
(0.7-1.3)
Calcium 8.3 L mg/dl
(8.4-10.2)
AST 14 L U/L
(17-59)
Alkaline Phosphatase 161 H U/L
(38-126)
Ur Occult Blood Reflex 4+ A
(Negative)
Leukocyte Esterase Rfl 3+ A
(Negative)
Urine WBC (Reflex) >100 A /HPF
(0-5)
Urine Albumin (Reflex) 3+ A
(Neg - Trace)
01/05/25 12:14
01/05/25 12:14
With blood count normal, urinalysis is consistent with infection, creatinine is significantly elevated compared to baseline values. I was able to review urine culture results from 08/20/2024-patient had Proteus mirabilis which was sensitive to
everything except tetracycline and nitrofurantoin
Vital Signs
Initial and Last Documented VS:
Initial Vital Signs
Temp Pulse Resp BP Pulse Ox
97 F 52 20 158/61 96
01/05/25 11:51 01/05/25 11:51 01/05/25 11:51 01/05/25 11:51 01/05/25 11:51
Last Documented Vital Signs
Temp Pulse Resp BP Pulse Ox
97 F 51 13 127/56 94
01/05/25 11:51 01/05/25 14:15 01/05/25 14:15 01/05/25 14:00 01/05/25 14:15
MDM/Problems Addressed
Differential Diagnosis Includes:
Differential diagnosis considered but not limited to urinary tract infection, electrolyte dyscrasia, dehydration, adverse medication reaction along with other etiologies considered
Chronic conditions affecting care:
Dementia, diabetes
*Pulse Oximetry
SaO2: 96
Oxygen Mode of Delivery: Room air
Patient hypoxic: no
*Critical Care Note
Total Time (30-74mins, 75-104mins- exclusive of procedures): Not Applicable
Update Note
Update Note:
Patient was able appearance throughout time in the emergency department. IV antibiotics ordered. I reviewed full patient presentation with Dr. Rose, hospitalist who accepts patient for admission for further treatment of altered mental status with
urinary tract infection. She added CT head and chest x-ray for further evaluation.
ED Attending Note
-
Portions of this chart may have been created with voice recognition software.� Occasional wrong word or��sound alike� substitutions may have occurred due to the inherent limitations of voice recognition software.
Discharge Plan
Departure
Patient Disposition: Admit
Date of Disposition: 01/05/25
Time of Disposition: 14:18
Admit to: Med/Surg
Presentation/result/management discussed w/ accepting MD/DO: Hospitalist
Discharge Problem:
Acute UTI (urinary tract infection), MIKE (acute kidney injury), Acute alteration in mental status
Interventions
Interventions:
*Risk Screen - Suicide Last Done: 01/05/25 11:51
*General Assessment Last Done: 01/05/25 11:51
*Neglect/Abuse Screening Last Done: 01/05/25 11:51
*ED COVID-19 Vaccine History Last Done: 01/05/25 13:00
ED- Neurological Assessment Last Done: 01/05/25 13:00
ED Swallowing Screen Last Done: 01/05/25 13:00
[2025-01-05] MEDS: NSS 1000 IV ×3 (13:52→21:46)
[2025-01-05] MEDS: ROCEPHIN 1000 MG IV (13:52)
--- NOTE | 2025-01-05 13:58 | HPS.HSE ---
Family Physician
-
Family Physician: Gerber Daley
Chief Complaint
-
Change in behavior and concern if UTI is the problem
History of Present Illness
79 years old male from [place]. History is taken from ER doctor and Yvonne ( [place]) over the phone. Patient had combative behavior which usually associated with UTI. He was sent over to the hospital. Patient did not have any complaints and he remained
confused at baseline. Patient has history of dementia. No leukocytosis. No fever. He was noted to have elevation in creatinine from baseline. Patient denied abdominal pain or chest pain but he is poor historian.
Medical History
Past Medical History
Past Medical History: Reports Other (IDDM dementia depression hypothyroidism BPH Hx CVA/chronic --incidentally noted on HCT)
Past Surgical History: Reports Other (No recent major surgery)
Social History
Unable to obtain full social history at this time due to: Dementia
Family History
Family History: Not pertinent
Allergies / Home Medications
Allergies reflects when Allergies were last updated in [facility].
Home Medications with original date entered in [facility]
Allergy/Medication List:
Allergies
Allergy/AdvReac Type Severity Reaction Status Date / Time
morphine Allergy Unknown Verified 01/05/25 11:59
nitrofurantoin Allergy Unknown Verified 01/05/25 11:59
Home Medications
acetaminophen 325 mg tablet 650 mg PO Q4HPRN PRN mild pain/temp>100 07/12/24
calcium carbonate 600 mg PO DAILY Supplement 07/12/24
donepezil 10 mg tablet 10 mg PO HS Mental Health/Anxiety 07/12/24
duloxetine 60 mg capsule,delayed release sprinkle 60 mg PO DAILY Depression 07/12/24
levothyroxine 75 mcg tablet 75 mcg PO DAILY Thyroid 07/12/24
methenamine hippurate 1 gram tablet 1 g PO BID Urinary Issue 07/12/24
polyethylene glycol 3350 17 gram oral powder packet 17 g PO DAILY Constipation 07/12/24
pregabalin 150 mg capsule (Lyrica) 150 mg PO BID Mental Health/Anxiety 07/12/24
tamsulosin 0.4 mg capsule (Flomax) 0.4 mg PO HS Urinary Issue 07/12/24
aspirin 81 mg chewable tablet 81 mg PO DAILY Blood Clot Prevention/Tx 08/20/24
atorvastatin 40 mg tablet 40 mg PO DAILY High Cholesterol 08/20/24
ergocalciferol (vitamin D2) 1,250 mcg (50,000 unit) capsule 1,250 mcg PO FR Supplement 08/20/24
insulin glargine 100 unit/mL subcutaneous solution 12 unit SC DAILY Diabetes 08/20/24
magnesium oxide 400 mg PO DAILY Supplement 08/20/24
memantine 10 mg tablet 10 mg PO BID Mental Health/Anxiety 08/20/24
bisacodyl 10 mg rectal suppository (Dulcolax (bisacodyl)) 10 mg NV DAILYPRN PRN if no bm by 4th day give on day 5 01/05/25
hydralazine 25 mg tablet 25 mg PO Q8HPRN PRN high blood pressure 01/05/25
hydrocortisone 2.5 % topical cream with perineal applicator (Anusol-HC) 1 applic NV BID hemorrhoids 01/05/25
insulin aspart U-100 100 unit/mL (3 mL) subcutaneous pen 0 sliding scale dose SC ACHS 01/05/25
magnesium hydroxide 400 mg/5 mL oral suspension (Milk of Magnesia) 2,400 mg PO [id number] PRN constipation 01/05/25
mirtazapine 7.5 mg tablet 7.5 mg PO HS 01/05/25
nitroglycerin 0.4 mg sublingual tablet (Nitrostat) 0.4 mg sublingual [id number] PRN chest pain 01/05/25
omeprazole 20 mg capsule,delayed release 20 mg PO DAILY 01/05/25
sennosides 8.6 mg-docusate sodium 50 mg tablet (Senna-S) 2 tab-cap PO DAILYPRN PRN constipation 01/05/25
sodium phosphates 19 gram-7 gram/118 mL enema (Fleet Enema) 118 ml NV DAILYPRN PRN if no bm by 5th day give on day 6 01/05/25
trazodone 50 mg tablet 50 mg PO HS 01/05/25
Review of Systems
-
Unable to obtain full review of systems at this time due to: Dementia
History Source: Patient
A 12 point ROS was completed and negative except as noted: Yes
Constitutional: Denies Fever
EENT: Denies Sore Throat
Respiratory: Denies Cough
Cardiac: Denies Chest Pain
Abdomen/GI: Denies Abdominal Pain
: Denies Dysuria
Musculoskeletal: Denies Joint Pain
Neurological: Denies Numbness
Physical Exam
Vital Signs
Vital Signs
Temp Pulse Resp BP Pulse Ox
97 F 52 20 158/61 96
01/05/25 11:51 01/05/25 11:51 01/05/25 11:51 01/05/25 11:51 01/05/25 13:10
Physical Exam
General: No Apparent Distress and Comfortable
HEENT: Moist mucous membranes and Atraumatic
Cardiac: S1/S2
GI: Soft, Non Tender and Non Distended
Genito-urinary: No Degroot
Musculoskeletal: No Clubbing, No Cyanosis and No Edema
Skin: No Jaundice
Neuro: Awake and Other (Follwed simple commands )
Psych: Calm and Apparent Dementia
Laboratory Results
-
01/05/25 12:14
01/05/25 12:14
Laboratory Results
Total Bilirubin 0.6 mg/dl (0.2-1.3) 01/05/25 12:14
AST 14 U/L (17-59) L 01/05/25 12:14
ALT < 10 U/L (0-50) 01/05/25 12:14
Alkaline Phosphatase 161 U/L (38-126) H 01/05/25 12:14
Impression/Plan
-
# TME secondary to UTI
He was combative per report. He was mildly agitated in ER with nursing staff also
Non focal on exam, he followed commands, moved all his limbs to command. Willd o CT head. No hx of recent fall per daughter.
# Complicated UTI due to hx of recurrent and known nephropathy, male
# Hx ESBL and pseudomonas
Urine Cx is sent
Order blood culture
Will do IV Rocephin for now
# MIKE on CKD 3b
baseline @ 1.5
SCr [address] scan if any worsening to known obstructive uropathy
# IDDM
AccuCheck AC & HS
SSI
hba1c- 7.8 in 08/2024
continue home insulin regimen
# DM polyneuropathy
cont gabapentin
# dementia, with behavioral disturbances
# depression
continue donepezil, duloxetine and memantine
# hypothyroidism
continue levothyroxine
# BPH
continue tamsulosin
# Hx recent CVA 07/26
continue aspirin and atorvastatin
completed plavix x 21 days
Code Status: Full code
DVT Prophylaxis: Heparin Sq
Total time spent to see the patient, examine the patient, review data and lab result, discuss treatment plan with patient, ER doctor, daughter, nursing staff around 75 minutes
--- NOTE | 2025-01-05 15:22 | CM ---
CM reviewed chart, pt not in room in ED.
Lives in LTC at [facility]. Wheelchair bound at baseline.
Daughter Yvonne is POA.
PCP: Gerber Daley
Pharmacy: [facility]
Discharge plan: Anticipate return to [facility] pending outcome of ongoing medical evaluation
[2025-01-05] MEDS: NSS IV ×2 (19:43)
[2025-01-05 20:00] LABS: Glucose - Point of Care 74 mg/dl (70-99)
[2025-01-05] MEDS: NOVOLOG FLEXPEN-MODERATE RESISTANCE SC (20:01)
--- NOTE | 2025-01-05 20:01 | PTCARENOTE ---
patient arrived from ED via stretcher. AOO to self. Patient confused. External catheter placed due to incontinence. Condom cath # 35. BS 74. Patient states he did not receive dinner in ED. This RN administered 4 oz apple juice. Patient passed
bedside swallow eval. IV fluids started per orders. Bed alarm on bed due to patient's confusion and history of impulsivity. Patient denies having dentures, glasses, and/or hearing aids. No other belongings of value at the bedside. Patient oriented
to room. All patient needs met. Bed in lowest position. Call cha and personal belongings within reach.
[2025-01-05] MEDS: LYRICA 150 MG PO (20:37)
[2025-01-05] MEDS: FLOMAX 0.4 MG PO (20:37)
[2025-01-05] MEDS: NAMENDA 10 MG PO (20:39)
[2025-01-05] MEDS: HEPARIN 5000 UNITS SC (20:40)
[2025-01-05] MEDS: DESYREL 50 MG PO (20:40)
[2025-01-05] MEDS: SENOKOT-S 2 TABLET PO (20:40)
[2025-01-05] MEDS: ARICEPT 10 MG PO (20:40)
[2025-01-05] MEDS: REMERON 7.5 MG PO (20:40)
[2025-01-05 21:33] LABS: Glucose - Point of Care 118 mg/dl (70-99)
--- NOTE | 2025-01-06 01:30 | PTCARENOTE ---
Condom cath malfunction due to patient removing. Did not replace. patient incontinent of urine requiring frequent incontinence care.
[2025-01-06] MEDS: NSS 1000 IV (02:55)
[2025-01-06] MEDS: SYNTHROID 75 MCG PO (05:19)
[2025-01-06 07:22] VITALS: BP 140/62
[2025-01-06 08:01] LABS: Glucose - Point of Care 80 mg/dl (70-99)
[2025-01-06] MEDS: LIPITOR 40 MG PO (08:02)
[2025-01-06] MEDS: LOW STRENGTH ASPIRIN 81 MG PO (08:02)
[2025-01-06] MEDS: CYMBALTA DELAYED RELEASE 60 MG PO (08:02)
[2025-01-06] MEDS: NOVOLOG FLEXPEN-MODERATE RESISTANCE SC ×2 (08:02→11:28)
[2025-01-06] MEDS: LYRICA 150 MG PO ×2 (08:02→19:37)
[2025-01-06] MEDS: HEPARIN 5000 UNITS SC ×2 (08:02→19:33)
[2025-01-06] MEDS: LANTUS 0.12 UNITS SC (08:03)
[2025-01-06] MEDS: NAMENDA 10 MG PO ×2 (08:03→19:37)
[2025-01-06 08:40] LABS: Glycohemoglobin (HgbA1c) 7.7 % (4.0-5.6)
--- NOTE | 2025-01-06 09:10 | W.PN.HOSP.TC ---
Today's Communication/Plan
-
IV ABx
f/w cultures
Assessment / Plan
Assessment / Plan
Physical Exam
General: No Apparent Distress and Comfortable
HEENT: Moist mucous membranes and Atraumatic
Cardiac: S1/S2
GI: Soft, Non Tender and Non Distended
Genito-urinary: No Degroot
Musculoskeletal: No Clubbing, No Cyanosis and No Edema
Skin: No Jaundice
Neuro: Awake and Other (Followed simple commands )
Psych: Calm and Apparent Dementia
# TME secondary to UTI
seems calm and following simple commands, still confused at baseline
No acute findings on CT head. No hx of recent fall per daughter.
# Complicated UTI due to hx of recurrent and known nephropathy, male
# Hx ESBL and pseudomonas
Urine Cx is sent
Order blood culture
c/w IV Rocephin for now
# MIKE on CKD 3b
baseline @ 1.5
SCr 2.7
check BMP today
CT showed unchanged obstructive uropathy.
# IDDM
AccuCheck AC & HS
SSI
hba1c- 7.8 in 08/2024
continue home insulin regimen
# DM polyneuropathy
cont gabapentin
# dementia, with behavioral disturbances
# depression
continue donepezil, duloxetine and memantine
# hypothyroidism
continue levothyroxine
# BPH
continue tamsulosin
# Hx recent CVA 07/26
continue aspirin and atorvastatin
completed Plavix x 21 days
Code Status: Full code
DVT Prophylaxis: Heparin Sq
Total time spent to see the patient, examine the patient, review data and lab result, discuss treatment plan with patient, daughter, nursing staff around 55 minutes
Anticipated Discharge: 24 - 48 hours
Subjective/Interval History
-
Date of Service: January 06, 2025
He feels better
less combative
no fevers
Objective Data
-
Vital Signs:
Vital Signs
Temp Pulse Resp BP Pulse Ox
97.8 F 63 18 140/62 95
01/06/25 07:22 01/06/25 07:22 01/06/25 07:22 01/06/25 07:22 01/06/25 07:22
I&O
01/05/25 01/06/25 01/07/25
06:59 06:59 06:59
Intake Total 1754 / 1754
Balance 1754 / 1754
[2025-01-06 09:27] VITALS: BP 87/61; PULSE 63; O2SAT 93
[2025-01-06 09:37] VITALS: BP 87/61; PULSE 63; O2SAT 93
[2025-01-06 09:59] LABS: Blood Urea Nitrogen 28 mg/dl (9-20); Calcium 7.8 mg/dl (8.4-10.2); Carbon Dioxide 24 mmol/L (22-30); Chloride 113 mmol/L (98-107); Estimated Creatinine Clearance 28 ml/min; Glucose 70 mg/dl (70-99); Potassium 4.1 mmol/L (3.5-5.1); Sodium 144 mmol/L (135-145); eGFR 29.54
[2025-01-06] MEDS: ROCEPHIN 1000 MG IV (10:28)
[2025-01-06] MEDS: STERILE WATER FOR INJECTION 10 ML IV (10:28)
[2025-01-06 11:25] LABS: Glucose - Point of Care 136 mg/dl (70-99)
--- NOTE | 2025-01-06 12:14 | CM ---
Addendum entered by Iesha Dodson 01/06/25 12:18:
[facility]
report# [phone]
fax# [phone]
Original Note:
CM reviewed chart, patient asleep bedside. Patient LTC resident at [facility], referral placed in [facility]. Patient on IV antibiotics. Patient will require ambulance transport to facility, forms placed on chart. CM will continue to follow for
all discharge planning needs.
Plan; return to [facility] LTC when stable
[2025-01-06 15:44] VITALS: BP 108/56
[2025-01-06 17:24] LABS: Glucose - Point of Care 181 mg/dl (70-99)
[2025-01-06] MEDS: NOVOLOG FLEXPEN-MODERATE RESISTANCE 1 UNITS SC (17:27)
[2025-01-06] MEDS: REMERON 7.5 MG PO (19:33)
[2025-01-06] MEDS: FLOMAX 0.4 MG PO (19:33)
[2025-01-06] MEDS: DESYREL 50 MG PO (19:35)
[2025-01-06] MEDS: ARICEPT 10 MG PO (19:35)
[2025-01-06] MEDS: SENOKOT-S 2 TABLET PO (19:35)
[2025-01-06 21:55] LABS: Glucose - Point of Care 143 mg/dl (70-99)
[2025-01-06 23:00] VITALS: BP 125/61
[2025-01-07] MEDS: SYNTHROID 75 MCG PO (05:53)
[2025-01-07 07:25] VITALS: BP 117/64
[2025-01-07 07:55] LABS: Glucose - Point of Care 77 mg/dl (70-99)
--- NOTE | 2025-01-07 09:28 | W.PN.HOSP.TC ---
Addendum entered and electronically signed by Marcial Rose MD 01/07/25 16:19:
addendum
Spoke with POD Daughter, dc in am if no issues.
End
Original Note:
Today's Communication/Plan
-
.
Assessment / Plan
Assessment / Plan
Physical Exam
General: No Apparent Distress and Comfortable
HEENT: Moist mucous membranes and Atraumatic
Cardiac: S1/S2
GI: Soft, Non Tender and Non Distended
Genito-urinary: No Degroot
Musculoskeletal: No Clubbing, No Cyanosis and No Edema
Skin: No Jaundice
Neuro: Awake and Other (Followed simple commands )
Psych: Calm and Apparent Dementia
# TME secondary to UTI
seems calm and following simple commands, still confused at baseline
No acute findings on CT head. No hx of recent fall per daughter.
# Complicated UTI due to hx of recurrent and known nephropathy, male
# Hx ESBL and pseudomonas
Urine Cx is sent
Order blood culture
c/w IV Rocephin for now
# MIKE on CKD 3b
baseline @ 1.5
SCr 2.7
check BMP today
CT showed unchanged obstructive uropathy.
# IDDM
AccuCheck AC & HS
SSI
hba1c- 7.8 in 08/2024
continue home insulin regimen
# DM polyneuropathy
cont gabapentin
# dementia, with behavioral disturbances
# depression
continue donepezil, duloxetine and memantine
# hypothyroidism
continue levothyroxine
# BPH
continue tamsulosin
# Hx recent CVA 07/26
continue aspirin and atorvastatin
completed Plavix x 21 days
Code Status: Full code
DVT Prophylaxis: Heparin Sq
Total time spent to see the patient, examine the patient, review data and lab result, discuss treatment plan with patient, daughter, nursing staff around 55 minutes
Anticipated Discharge: 24 - 48 hours
Subjective/Interval History
-
Date of Service: January 07, 2025
No agitation
He denies pain
Objective Data
-
Vital Signs:
Vital Signs
Temp Pulse Resp BP Pulse Ox
97.6 F 56 18 117/64 91
01/07/25 07:25 01/07/25 07:25 01/07/25 07:25 01/07/25 07:25 01/07/25 07:25
I&O
01/06/25 01/07/25 01/08/25
06:59 06:59 06:59
Intake Total 1754 / 1754 960 / 960
Output Total 1250 / 1250
Balance 1754 / 1754 -290 / -290
[2025-01-07] MEDS: NOVOLOG FLEXPEN-MODERATE RESISTANCE SC (09:37)
[2025-01-07] MEDS: LIPITOR 40 MG PO (09:39)
[2025-01-07] MEDS: LANTUS 0.12 UNITS SC (09:39)
[2025-01-07] MEDS: CYMBALTA DELAYED RELEASE 60 MG PO (09:39)
[2025-01-07] MEDS: LOW STRENGTH ASPIRIN 81 MG PO (09:39)
[2025-01-07] MEDS: HEPARIN 5000 UNITS SC ×2 (09:40→19:38)
[2025-01-07] MEDS: LYRICA 150 MG PO ×2 (09:40→19:38)
[2025-01-07] MEDS: NAMENDA 10 MG PO ×2 (09:47→19:38)
[2025-01-07] MEDS: STERILE WATER FOR INJECTION 10 ML IV (09:47)
[2025-01-07] MEDS: ROCEPHIN 1000 MG IV (09:48)
[2025-01-07 10:50] LABS: Blood Urea Nitrogen 25 mg/dl (9-20); Calcium 8.1 mg/dl (8.4-10.2); Carbon Dioxide 25 mmol/L (22-30); Chloride 111 mmol/L (98-107); Estimated Creatinine Clearance 30 ml/min; Glucose 134 mg/dl (70-99); Potassium 4.2 mmol/L (3.5-5.1); Sodium 144 mmol/L (135-145); eGFR 31.23
[2025-01-07 11:40] LABS: Glucose - Point of Care 175 mg/dl (70-99)
[2025-01-07] MEDS: NOVOLOG FLEXPEN-MODERATE RESISTANCE 1 UNITS SC ×2 (12:50→17:11)
[2025-01-07 15:25] VITALS: BP 139/64
[2025-01-07 16:58] LABS: Glucose - Point of Care 168 mg/dl (70-99)
[2025-01-07] MEDS: SENOKOT-S 2 TABLET PO (19:38)
[2025-01-07] MEDS: FLOMAX 0.4 MG PO (19:39)
[2025-01-07] MEDS: ARICEPT 10 MG PO (19:42)
[2025-01-07] MEDS: DESYREL 50 MG PO (19:42)
[2025-01-07] MEDS: REMERON 7.5 MG PO (19:42)
[2025-01-07 21:31] LABS: Glucose - Point of Care 103 mg/dl (70-99)
[2025-01-07 23:06] VITALS: BP 146/69
[2025-01-08] MEDS: SYNTHROID 75 MCG PO (06:09)
[2025-01-08 07:00] VITALS: BP 146/73
[2025-01-08 08:26] LABS: Hematocrit 32.4 % (39.0-52.0); Hemoglobin 10.6 g/dL (13.0-18.0); Mean Corp Hgb Conc. 32.7 g/dL (33.0-37.0); Mean Corpuscular Volume 88.0 fL (80.0-94.0); Platelet Count 181 10^3/uL (130-400); Red Cell Dist. Width 15.0 % (11.5-14.5)
--- NOTE | 2025-01-08 08:36 | W.PN.HOSP.TC ---
Today's Communication/Plan
-
dc
Assessment / Plan
Assessment / Plan
Physical Exam
General: No Apparent Distress and Comfortable
HEENT: Moist mucous membranes and Atraumatic
Cardiac: S1/S2
GI: Soft, Non Tender and Non Distended
Genito-urinary: No Degroot
Musculoskeletal: No Clubbing, No Cyanosis and No Edema
Skin: No Jaundice
Neuro: Awake and Other (Followed simple commands )
Psych: Calm and Apparent Dementia
# TME secondary to UTI
seems calm and following simple commands, still confused at baseline
No acute findings on CT head. No hx of recent fall per daughter.
# Complicated UTI due to hx of recurrent and known nephropathy, male
# Hx ESBL and pseudomonas
Urine Cx is c/w farley sensitive proteus infection
Negative blood culture
c/w IV Rocephin for now , dc on oral TX to finish 10 days course.
# MIKE on CKD 3b
baseline @ 1.[address] showed unchanged obstructive uropathy.
# IDDM
AccuCheck AC & HS
SSI
hba1c- 7.8 in 08/2024
continue home insulin regimen
# DM polyneuropathy
cont gabapentin
# dementia, with behavioral disturbances
# depression
continue donepezil, duloxetine and memantine
# hypothyroidism
continue levothyroxine
# BPH
continue tamsulosin
# Hx recent CVA 07/26
continue aspirin and atorvastatin
completed Plavix x 21 days
Code Status: Full code
DVT Prophylaxis: Heparin Sq
Total discharge time spent to see the patient, examine the patient, review data and lab result, discuss discharge plan with patient, daughter, nursing staff around 65 minutes
Anticipated Discharge: Today
Subjective/Interval History
-
Date of Service: January 08, 2025
No chest pain
no sob
No abd pain
Objective Data
-
Labs:
Laboratory Results
01/08/25
07:25
WBC 5.2
Hgb 10.6 L
Hct 32.4 L
Plt Count 181
Sodium Pending
Potassium Pending
Chloride Pending
Carbon Dioxide Pending
BUN Pending
Creatinine Pending
Glucose Pending
Calcium Pending
Vital Signs:
Vital Signs
Temp Pulse Resp BP Pulse Ox
98.0 F 56 14 146/69 94
01/07/25 23:06 01/07/25 23:06 01/07/25 23:06 01/07/25 23:06 01/07/25 23:06
I&O
01/07/25 01/08/25 01/09/25
06:59 06:59 06:59
Intake Total 960 / 960 360 / 360
Output Total 1250 / 1250 1125 / 1125
Balance -290 / -290 -765 / -765
[2025-01-08 08:39] LABS: Glucose - Point of Care 90 mg/dl (70-99)
[2025-01-08] MEDS: NOVOLOG FLEXPEN-MODERATE RESISTANCE SC ×2 (08:56→12:07)
[2025-01-08] MEDS: LOW STRENGTH ASPIRIN 81 MG PO (08:56)
[2025-01-08] MEDS: HEPARIN 5000 UNITS SC (08:57)
[2025-01-08] MEDS: LIPITOR 40 MG PO (08:57)
[2025-01-08] MEDS: CYMBALTA DELAYED RELEASE 60 MG PO (08:57)
[2025-01-08] MEDS: NAMENDA 10 MG PO (08:58)
[2025-01-08] MEDS: LYRICA 150 MG PO (08:58)
[2025-01-08] MEDS: ROCEPHIN 1000 MG IV (08:58)
[2025-01-08] MEDS: STERILE WATER FOR INJECTION 10 ML IV (08:59)
[2025-01-08] MEDS: LANTUS 0.12 UNITS SC (09:00)
[2025-01-08 09:09] LABS: Blood Urea Nitrogen 23 mg/dl (9-20); Calcium 8.2 mg/dl (8.4-10.2); Carbon Dioxide 23 mmol/L (22-30); Chloride 111 mmol/L (98-107); Estimated Creatinine Clearance 31 ml/min; Glucose 106 mg/dl (70-99); Potassium 4.2 mmol/L (3.5-5.1); Sodium 142 mmol/L (135-145); eGFR 33.12
[2025-01-08 11:23] LABS: Glucose - Point of Care 135 mg/dl (70-99)
--- NOTE | 2025-01-08 12:42 | W.DCSUMMARY ---
Discharge Summary
Discharge Data
Date of Admission: 01/05/25
Date of Discharge: 01/08/25
-
Pending Results: No
Hospital Course
79 years old male with history of dementia and recurrent urinary tract infection came in from shelter after exhibiting combative behavior. In the emergency room, he was calm and not agitated. He did not have fever. No leukocytosis. Urine
test was positive for leukocyte Estrace, white blood cell and negative for bacteria. Had a scan showed stable chronic encephalomalacia related to an old infarct in the left parietal lobe, moderate atrophy, mild to moderate chronic microvascular
white matter ischemic changes. Scan of the abdomen and pelvis showed relatively stable distention of the renal collecting system/ureters without intraluminal renal or ureteral calculus, urinary bladder was not distended and similar to prior
examination. There was fecal rectal impaction, patient was given laxative and he had bowel movements. He was placed on daily dose of Senokot/Colace to be given at nighttime instead of as needed to avoid constipation. Patient did not have
abdominal distention or tenderness on examination. Patient is poor historian due to underlying dementia. Patient was admitted to the hospital. He did not have agitation or delirium. He was maintained on his usual medications. He was given
empiric intravenous Rocephin. Blood culture did not show any growth. Urine culture came positive for pansensitive Proteus. Due to history of change in behavior, patient was diagnosed with possible encephalopathy. He was treated with antibiotic
although could not rule out urine colonization due to history of obstructive uropathy. Patient did not have acute urinary retention upon bladder scan. He was able to tolerate diet. He was noticed to have mild worsening in GFR, he was given IV
fluid. His GFR went back to baseline. Patient has chronic kidney disease stage IIIb. Patient remained hemodynamically stable. He received 4 days of intravenous antibiotic. He was started on cefuroxime to finish total of 10 days course. Family
was concerned regarding history of recurrent urinary tract infection, patient is on methenamine treatment in the outpatient setting. Patient tolerated diet and took his medications. sr. payroll manager was involved in discharge planning. Patient was
evaluated by physical therapy. Patient was discharged back to shelter in a stable condition. Discharge instructions were discussed in details with daughter, Yvonne Hung who was made aware of that extending hospital stay with no prevent
recurrent urinary tract infection.
Discharge Plan
-
Patient Disposition: Snf/SNF
Discharge Diagnosis/Procedures: [place] - sensitive Proteus UTI
Negative blood culture
TME, back to baseline. Tolerating diet and taking medication. No combativeness.
Constipation, change Senokot/Colace to nighttime dose daily, continue with MiraLAX daily.
Diet: As tolerated and Diabetic, Carb Controlled
Referrals:
Gerber Daley MD [Family Provider, Internal Medicine] - in one to two weeks
Prescriptions:
New
hydralazine 10 mg Tablet
10 mg PO Q8HPRN PRN (Reason: SBP more than 165) Qty: 10 0RF
cefuroxime axetil 500 mg Tablet
500 mg PO DAILY Qty: 6 0RF
Continued
acetaminophen 325 mg Tablet
650 mg PO Q4HPRN PRN (Reason: mild pain/temp>100)
polyethylene glycol 3350 17 gram Powder In Packet
17 g PO DAILY
donepezil 10 mg Tablet
10 mg PO HS
levothyroxine 75 mcg Tablet
75 mcg PO DAILY
calcium carbonate 600 mg calcium (1,500 mg) Tablet
600 mg PO DAILY
tamsulosin [Flomax] 0.4 mg Capsule
0.4 mg PO HS
pregabalin [Lyrica] 150 mg Capsule
150 mg PO BID
duloxetine 60 mg Capsule, Delayed Rel Sprinkle
60 mg PO DAILY
insulin glargine 100 unit/mL Solution
12 unit SC DAILY
aspirin 81 mg Tablet,Chewable
81 mg PO DAILY
ergocalciferol (vitamin D2) 1,250 mcg (50,000 unit) Capsule
1,250 mcg PO FR
memantine 10 mg Tablet
10 mg PO BID
magnesium oxide 400 mg magnesium Tablet
400 mg PO DAILY
atorvastatin 40 mg tablet
40 mg PO DAILY
trazodone 50 mg Tablet
50 mg PO HS
hydrocortisone [Anusol-HC] 2.5 % Cream With Perineal Applicator
1 applic VT BID
magnesium hydroxide [Milk of Magnesia] 400 mg/5 mL Suspension
2,400 mg PO [id number] PRN (Reason: constipation)
bisacodyl [Dulcolax (bisacodyl)] 10 mg Suppository
10 mg VT DAILYPRN PRN (Reason: if no bm by 4th day give on day 5)
Fleet Enema 19-7 gram/118 mL Enema
118 ml VT DAILYPRN PRN (Reason: if no bm by 5th day give on day 6)
nitroglycerin [Nitrostat] 0.4 mg Tablet, Sublingual
0.4 mg SUBLINGUAL [id number] PRN (Reason: chest pain)
omeprazole 20 mg Capsule,Delayed Release(Dr/Ec)
20 mg PO DAILY
mirtazapine 7.5 mg Tablet
7.5 mg PO HS
insulin aspart U-100 100 unit/mL (3 mL) insulin pen
0 sliding scale dose SC ACHS
Rx Instructions:
200-2500=2units, 250-300=3units, 301-350=4units
Changed
sennosides-docusate sodium [Senna-S] 8.6-50 mg Tablet
2 tab-cap PO HS Qty: 0 0RF
Held
methenamine hippurate 1 gram Tablet
1 g PO BID
Hold Instructions: Resume on 01/15/25.
Discontinued
hydralazine 25 mg Tablet
25 mg PO Q8HPRN PRN (Reason: high blood pressure)
Discharge Orders:
Discharge Patient (As Directed); Ordered 01/08/25
Ordered By: Marcial Rose
Discharge Date and Time
Print Language: MALTESE
--- NOTE | 2025-01-08 12:56 | CM ---
Addendum entered by Iesha Dodson 01/08/25 13:04:
IMM emailed to daughter
Original Note:
CM reviewed chart, patient for discharge today. Call to patients daughter, Yvonne, (POA), requesting call from Hospitalist. Daughter inquiring about patient receiving IV antibiotics, concerned if patient discharge he will return to Hospital. CM
reviewed IMM and right to appeal, Yvonne would like to speak to siblings and call CM back. CM received another call from daughter, agreeable to send patient back to [facility], updates to ivana Haque. Patient will require ambulance transport,
scheduled for 4:30 p.m. Daughter updated.
Plan; return to [facility], 4:30 p.m. ambulance transport
[facility]
Report: [phone] ext [phone]
[2025-01-08 15:21] VITALS: BP 107/65
[2025-01-08 16:05] LABS: Glucose - Point of Care 79 mg/dl (70-99)
== END 2025-01-08 17:08 | DRG 73 ==
LOC: 4 WEST ACU 14:36
PROVIDERS: Emergency Medicine; ADMITTING PHYSICIAN Internal Medicine; EMERGENCY PHYSICIAN Emergency Medicine; FAMILY PHYSICIAN Internal Medicine
DX: E11.42 Type 2 diabetes mellitus with diabetic polyneuropathy (principal); G92.8 Other toxic encephalopathy; N39.0 Urinary tract infection, site not specified; N17.9 Acute kidney failure, unspecified; F03.918 Unspecified dementia, unspecified severity, with other behavioral disturbance; F03.93 Unspecified dementia, unspecified severity, with mood disturbance; N18.32 Chronic kidney disease, stage 3b; Z79.4 Long term (current) use of insulin; E03.9 Hypothyroidism, unspecified
CPT/HCPCS: 70450; 74176; 80048; 80053; 81003; 81015; 82962; 83036; 85025; 85027; 87040; 87070; 87077; 87086; 87186; 87502; 87811; 96374; 97163; 97167; 99285